=== PATIENT | female | born 1985 | race Caucasian/White ===

== ENCOUNTER 2017-07-25 17:59 | Emergency (ER) | payer OTHER, SELFPAY ==
[2017-07-25 18:01] VITALS: BP 141/77; PULSE 88; RESP 17; TEMP 37.1; O2SAT 100; BMI 44.4
--- NOTE | 2017-07-25 18:40 | ED.VISSUMM ---
- ER Visit Summary Date of Service: 07/25/17 Chief Complaint: Left thumb laceration History of Present Illness: The patient is a 31 F cutting an onion and accident and lacerated the distal end of her left thumb. Tetanus is up-to-date within the last 3 years. She denies any other injuries. She is right-hand dominant. Physical Examination: Appearing female no acute distress. Vital signs are stable afebrile. Exam is unremarkable except the distal end of her left thumb has a 2 cm laceration going horizontally involving the midportion of the nail and subcu tissue. There is minimal oozing of blood. The thumb is neurovascularly intact. It does not involve the bone, tendon or joint. There are no foreign bodies. No signs of infection. Thumb has full range of motion with normal touch sensation. Test Results: None Emergency Department Course and Treatment: Wound is not deep and can need to be repaired via suturing or Dermabond. I discussed with the patient and she chose Dermabond. Wound was cleaned and dried and Dermabond with good approximation. Patient tolerated procedure well. It was a 2 cm wound. Treatment Plan: Keep wound clean watch for any signs of infection. Disposition: Discharge Impression: Left thumb 2 cm laceration with ER repair using Dermabond This note was generated with [employer] dictation software. It may contain incorrect words, spelling, and punctuation that were not noted in review of the chart prior to signing ED Disposition - Plan for ED Patient: Chief Complaint: Laceration Referrals: Anh Tsang DO [Primary Care Provider] -
--- NOTE | 2017-07-25 18:42 | ED.DEP ---
ED Disposition - Plan for ED Patient: Disposition: Home or Assisted Living Chief Complaint: Laceration Instructions: ED Laceration Hand Referrals: Anh Tsang DO [Primary Care Provider] - Additional Instructions: Keep area dry and clean.
[2017-07-25 18:59] VITALS: BP 121/73; PULSE 81; RESP 18
== END 2017-07-25 19:00 | disposition home or self-care (01) ==
LOC: ED 18:49
PROVIDERS: Emergency Provider Emergency Medicine; Family Provider Internal Medicine; PCP Internal Medicine
DX: S61.012A Laceration without foreign body of left thumb without damage to nail, initial encounter (principal); W26.0XXA Contact with knife, initial encounter; Y93.89 Activity, other specified; Y92.9 Unspecified place or not applicable; E03.9 Hypothyroidism, unspecified; Z79.899 Other long term (current) drug therapy
CPT/HCPCS: 12001; 99282

== ENCOUNTER → 2017-09-16 11:51 | Outpatient (CLI) | payer OTHER, SELFPAY ==
[2017-09-16 14:14] LABS: Free T3 2.7 pg/mL (2.18-3.98); T4 Free Direct 1.26 ng/dL (0.76-1.46); Thyroid Stim Hormone (TSH) 2.17 uIU/mL (0.358-3.74)
== END ==
PROVIDERS: Family Provider Internal Medicine; PCP Internal Medicine; Visit Provider Internal Medicine
DX: E03.9 Hypothyroidism, unspecified (principal)
CPT/HCPCS: 36415; 84439; 84443; 84481

== ENCOUNTER → 2018-01-06 12:39 | Outpatient (CLI) | payer OTHER, SELFPAY ==
[2018-01-06 12:23] VITALS: BMI 43.6
--- NOTE | 2018-01-06 12:41 | RAD_ITS ---
STUDY: X-RAY CHEST REASON FOR EXAM: Female, 32 years old. Left lower chest pain. TECHNIQUE: PA and lateral views of the chest. COMPARISON: None. FINDINGS: The lungs are clear and expanded. Scattered calcified granulomas. There is no demonstrated pleural abnormality. Normal size heart. Normal mediastinum and jacki. Normal visualized pulmonary arteries. Normal visualized aortic arch and descending thoracic aorta. Normal visualized thoracic spine. Normal visualized ribs, clavicles, and shoulders. There is no demonstrated abnormality of the visualized soft tissue structures of the upper abdomen. RAD/Chest PA and Lateral IMPRESSION: Normal x-ray examination of the chest. Electronically Signed: Eliud Hart MD at 13:05 EST Tel [phone], Service support ,
== END ==
PROVIDERS: Family Provider Internal Medicine; PCP Internal Medicine; Referring Provider Physician Assistant; Visit Provider Physician Assistant
DX: R05 Cough (principal); R53.83 Other fatigue
CPT/HCPCS: 71046

== ENCOUNTER 2018-01-06 17:30 | Outpatient (RCR) | payer OTHER, SELFPAY ==
--- NOTE | 2017-12-24 12:24 | HP.OTEVAL ---
Patient's Visit Information CHET SAUL is a 32 year old F, referred to Occupational Therapy by Olivia Hanks MD, with a diagnosis of Pain in R thumb. 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 about 7 hours per day. pt. reports that she has pain in her thumb area that started 6 months ago. pt. also reports that she used to pop her joints and often sits/stands in positions that are not ergonomically friendly. - Pain R hand 0 Pain Intensity Range: 0, 1, 2, 3, 4, 5 - Objective Objective/Observation: pt. R MP joint and thenar eminence is noticeably larger than pt. L MP joint and thenar eminence of the thumb. - ROM MP: 0/60 in R, 0/80 in L IP: 0/35 in R, 0/51 in L ROM Comments: limited range in thenar eminence, cannot touch touch the 5th digit, (10) on thumb opposition scale for touching 5th digit - Strength Sales Account Representative: 99# in R and 95 # in L Lateral Pinch: 17# in R and 17# in L Tripod Pinch: 18# in R and 19 # in L Strength Comments: did have pain during tripod in R thumb area - DASH-Disabilities of Arm, Shoulder& Hand DASH Sum: 41 - Goals Goal:: Patient will increase ROM in MP and IP joint of R thumb by 15 degrees by completing strengthening and stretching exercises in order to complete BADL?s and IADL?s. Goal:: Patient will have decreased swelling and report overall decrease in pain of <5 when completing repetitive in order to complete BADL?s and IADL?s. Goal:: Patient will demo understanding of joint protection and ECM recommendations for increased I with BADL?s and IADL?s. Goal:: Patient will report improved ergonomic positions while at work and home for increased I with BADL's, IADL's and work tasks. Goal:: Patient will report decreased pain with writing tasks in order to have increased I with IADL's. - Rehabilitation General Assessment: Patient presents with R pain thumb d/t unknown causes. 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 pt. also reports non-ergonomically friendly positions both at work and while at home. pt. presents with decreased ROM in the MP and IP joints of the R MP joint, increased pain, and decreased ability to complete BADL's and IADL's. Pt. would benefit from OT services 2x/wk for 3 wks. Rehabilitation Potential: Good - Anticipated Interventions Anticipated Interventions: A/AAROM/PROM, Triggerpoint Release, Modalities, Joint Protection/Energy Conservation, Ergonomic Education, ADL Training, Home Program - Visit Plan Frequency: 2x /Week Duration: 3 Weeks TEXT: Thank you for the opportunity to evaluate your patient. For Medicare and Medicare HMO plans, please review the plan of care and approve it. It will need to be FAXED BACK to us at [phone] for Medicare purposes. Please let me know if there are questions or concerns regarding this plan of care. Physician Signature: Date:
--- NOTE | 2018-04-07 14:58 | HP.OT.NRP ---
HP - Discharge Summary - Patient Information CHET SAUL was seen in my office for initial evaluation on 12/23/17. The following Plan of Care was established for this patient: Initial Frequency: 2x /Week Initial Duration: 3 Weeks Plan: cont w/ prior POC - Anticipated Interventions Anticipated Interventions: A/AAROM/PROM, Triggerpoint Release, Modalities, Joint Protection/Energy Conservation, Ergonomic Education, ADL Training, Home Program This patient was last seen in our office 01/06/18. Pertinent comments regarding their Occupational therapy will appear below: pt was seen for 4 OT visits. pt was progressing well with her recovery. pt did cancel her last apt due to being ill and no further apts were rescheduled as pt felt she was doing well with her thumb. Pt is D/C at this time due to timelapse in therapy services. At this point I will be discontinuing this patient from occupational therapy. I would be happy to see this patient again in the future if found appropriate by the physician. Thank you! iLz Blanco, OTR/L, CHT
== END 2018-01-06 19:00 | disposition home or self-care (01) ==
LOC: OT 17:30
PROVIDERS: Family Provider Internal Medicine; PCP Internal Medicine; Referring Provider Orthopaedic Surgery Hand Surgery; Visit Provider Orthopaedic Surgery Hand Surgery
DX: M79.644 Pain in right finger(s) (principal)
CPT/HCPCS: 97035; 97140; 97166

== ENCOUNTER 2018-01-06 21:14 | Emergency (ER) | payer OTHER, SELFPAY ==
[2018-01-06 12:23] VITALS: BMI 43.6
[2018-01-06 21:15] VITALS: BP 150/90; PULSE 114; RESP 18; TEMP 37.1; O2SAT 99; BMI 44.0
--- NOTE | 2018-01-06 21:34 | CT_ITS ---
STUDY: CT ABDOMEN AND PELVIS WITHOUT CONTRAST REASON FOR EXAM: Female, 32 years old. Left upper quadrant pain since Saturday, elevated blood pressure, constipation. History of GERD and RADIATION DOSAGE (If Supplied By Facility): CTDIvol = ( 23.00 ) mGy, DLP = ( 1269.82 ) mGycm TECHNIQUE: Transaxial 2.5 mm images were obtained from the dome of the diaphragm to the symphysis pubis without oral contrast, and without intravenous contrast. Sagittal and coronal images were reconstructed. This examination is limited for the evaluation of gastrointestinal, solid organs and vascular structures due to the lack of intravenous and oral contrast. There is obesity, the entirety of soft tissue is not imaged. Individualized dose optimization techniques were used for this CT. COMPARISON: Chest x-ray 03/08/2017 FINDINGS: The visualized lung bases are unremarkable. The visualized portions of the heart are within normal limits. Normal liver. The gallbladder is contracted. There is mild splenomegaly. Spleen measures craniocaudally and AP 14.5 cm . Normal pancreas. Normal bilateral adrenal glands. Normal right kidney. Normal left kidney. There is no obstructive uropathy, obstructive renal or ureteral calculi. Normal visualized stomach. Normal small intestine. Normal colon. The appendix is visualized and appears normal. Normal abdominal aorta. Normal inferior vena cava. Normal retroperitoneum. Normal urinary bladder. Normal visualized uterus. There is low attenuation of the ovaries most frequently due to follicular cysts. Normal abdominal extremity wall. Degenerative changes L5-S1. CT/Abdomen/Pelvis without Cont IMPRESSION: There is no acute abdomen and pelvic pathology. Mild splenomegaly. Contracted gallbladder. Other nonacute findings as outlined above. Electronically Signed: Gali Parks MD at 23:55 EST , Service support ,
--- NOTE | 2018-01-06 21:50 | ED.VISSUMM ---
- ER Visit Summary Date of Service: 01/06/18 Chief Complaint: Abdominal pain History of Present Illness: The patient is a 32 F with fever, URI symptoms, and myalgias last week. Patient noted pain to her left lower ribs a couple days ago as her other symptoms improved. She reports increased pain with deep breath and [facility]. A chest x-ray was negative. Patient states after leaving that appointment she realized that she does not member when she last had a bowel movement and has not been able to pass gas. Pain is in the left upper quadrant of her abdomen and she became concerned. She has been urinating well. She does admit she has not been eating much over the past week. Physical Examination: Blood pressure is 150/90, temperature 98.7, heart rate 114, respiratory rate 18, pulse ox 99% on room air. Head neck examination is unremarkable. Heart is slightly tachycardic with a heart rate of 104 the time of my exam. Lung sounds are clear. Abdomen is soft with mild tenderness in the left upper quadrant. Hypoactive but present bowel sounds are noted. No guarding or rebound. Back examination reveals mild left CVA tenderness. Test Results: CBC was normal white count with hemoglobin 11.4. 63% lymphocytes are noted. Chemistry studies are significant for potassium of 2.9. LFTs showed normal bilirubins with an alk phos of 139, ALT 109, AST 86. Lipase is normal. Urinalysis normal. CT flank shows no acute abdomen or pelvis pathology. Mild splenomegaly is noted. Gallbladder is contracted. Emergency Department Course and Treatment: Patient declined anything for pain here. She was given potassium replacement orally. Test results are discussed with her. With the mild splenomegaly I question whether she may have had mono last week or a similar type of viral infection. At this point she will continue to monitor her symptoms. She will be given an additional 4 days of potassium replacement. She will follow-up with her primary care physician in 1 week. Treatment Plan: [] Disposition: Discharge Impression: 1. Viral syndrome, improving 2. Mild splenomegaly 3. Hypokalemia This note was generated with [employer] dictation software. It may contain incorrect words, spelling, and punctuation that were not noted in review of the chart prior to signing ED Disposition - Plan for ED Patient: Chief Complaint: Abd Pain Referrals: Anh Tsang DO [Primary Care Provider] -
[2018-01-06 22:06] LABS: Bacteria 0 SEEN /hpf (None Seen); Mucous, Urine 0 SEEN /hpf (<or=2+); Red Blood Cells-Urine 0 SEEN /hpf (0-5); White Blood Cells 0 SEEN /hpf (0-5)
[2018-01-06 22:25] LABS: Absolute Lymphocyte Count 3.34 X10^3/ul (0.83-4.51); Absolute Neutrophil Count 1.4 X10^3/uL (2.0-7.7); Basophil# 0.16 X10^3/uL; Color, Urine Yellow (Yellow); Eosinophil# 0.06 X10^3/uL; Eosinophils% 1.1 % (0-5); Glucose, Dipstick Normal (Normal); Hemoglobin 11.4 g/dl (12.0-15.0); Ketone-Dipstick Negative (Negative); Leukocyte Esterase-Dipstick Negative /ul (Negative); Lymphocyte # 3.34 X10^3/ul (4.0); Lymphocyte % 62.9 % (19-41); Mean Corp Hgb Conc 33.5 g/gl (32-36); Mean Corpuscular Hgb 27.4 pg (27.0-32.0); Mean Corpuscular Volume 81.7 fL (81-99); Mean Platelet Vol. 9.4 fl (6.2-12.0); Monocyte# 0.37 X10^3/uL; Neutrophil # 1.36 X10^3/uL (2.7-7.7); Neutrophil % 25.6 % (47-70); Nitrite-Dipstick Negative (Negative); Occult Blood-Urine Negative /ul (Negative); Platelet Count 173 K/mm3 (150-450); Protein-Dipstick Negative (Negative); RBC Distribution Width CV 13.3 % (11.6-14.6); RBC Distribution Width SD 40.3 fl (35.1-43.9); Red Blood Count 4.16 M/mm3 (4.2-5.4); Specific Gravity, Urine 1.005 (1.002-1.030); Urine Bilirubin Dipstick Negative (Negative); Urine Clarity Clear (Clear); Urine Urobilinogen Normal (Normal); White Blood Count 5.3 K/mm3 (4.4-11.0)
[2018-01-06 22:26] LABS: Differential Indicated SCAN CRITERIA MET; POSITIVE COUNT NO; POSITIVE DIFFERENTIAL NO; POSITIVE MORPHOLOGY YES
[2018-01-06 22:27] LABS: AST(SGOT) 86 U/L (15-37); Alanine Aminotransfer ALT/SGPT 109 U/L (13-56); Albumin, Serum 3.7 g/dL (3.2-5.0); Alkaline Phosphatase 139 U/L (45-117); Anion Gap 7 (5-15); BUN 10 mg/dL (7-18); BUN/Creat Ratio 11.3 RATIO (10-20); Bilirubin, Direct 0.19 mg/dL (0.00-0.30); Calcium,Total 8.4 mg/dL (8.5-10.1); Chloride 103 mmol/L (98-107); Creatinine, Serum 0.89 mg/dL (0.55-1.02); EST Glomerular Filtration Rate 78 mL/min (>60); Est Glom Filt Rate - Afr Amer 95 mL/min (>60); Estimated Creatinine Clearance 81.66 ml/min; Globulin 3.9 g/dL (2.2-4.2); Glucose 102 mg/dL (74-106); Lipase 81 U/L (73-393); Potassium 2.9 mmol/L (3.5-5.1); Protein, Total 7.6 g/dL (6.4-8.2); Sodium Level 137 mmol/L (136-145); Squamous Epithelial Cells - UA 0-5 SEEN /hpf (5-10)
[2018-01-06 22:45] LABS: Pregnancy, Serum, hCG Quali. NEGATIVE Negative (0-9 Nonpreg)
[2018-01-06 22:58] LABS: Differential Comment SCANNED
[2018-01-06 23:47] VITALS: BP 142/96; PULSE 109; RESP 14; O2SAT 97
--- NOTE | 2018-01-07 00:09 | ED.DEP ---
ED Disposition - Plan for ED Patient: Disposition: Home or Assisted Living Chief Complaint: Abd Pain Instructions: ED Viral Syndrome, ED Potassium Deficiency Prescriptions: Potassium Chloride [K-Dur] 20 meq PO BID #8 tablet Referrals: Anh Tsang DO [Primary Care Provider] - 1 Week
[2018-01-07 00:21] VITALS: BP 133/83; PULSE 92; RESP 16; O2SAT 96
--- OUTSIDE RECORDS SUMMARY | 2018-02-18 17:14 | XMS RPT_ITS ---
:1985 Author Organization OH[facility] Care Team Providers Name Role Phone Anh Tsang DO Attending Unavailable Trinh DO, Anh Referring Unavailable Trinh DO, Anh Consulting Unavailable Kailee Ho RECORD PRESS TENDER-C Attending Unavailable Alex Winn Attending Unavailable Trinh, Anh Primary Care Unavailable Trinh, Anh Attending Unavailable Trinh, Anh Referring Unavailable Trinh, Anh Primary Care Unavailable LatonyaOlivia antonio O Attending Unavailable [place], Olivia O Referring Unavailable Trinh, Anh Primary Care Unavailable Jassi Paniagua Attending Unavailable Trinh, Anh Referring Unavailable Wyles, Jassi Attending Unavailable Wyles, Jassi Referring Unavailable Trinh, Anh Primary Care Unavailable Trinh, Anh Primary Care Unavailable Maryse Vazquez Attending Unavailable Trinh, Anh Primary Care Unavailable Ariel Mayberry Attending Unavailable Purpose Purpose PROBLEMS PROBLEMS DATE TYPE CONDITION / CODE ATTENDING STATUS SOURCE 01/06/2018 Unknown M79.644 - Pain in Olivia Hanks Active [facility] right finger(s) / [facility] M79.644(ICD-10) Hospital Repository 01/06/2018 Unknown R05 - Cough / Jassi Paniagua Active [facility] R05(ICD-10) [facility] Repository 01/06/2018 Unknown R53.83 - Other Jassi Paniagua Active [facility] fatigue / Community R53.83(ICD-10) Hospital Repository 01/06/2018 Unknown R50.9 - Fever, Jassi Paniagua Active [place] unspecified / Community R50.9(ICD-10) Hospital Repository PROCEDURES PROCEDURES No Procedure Records FoundVITAL SIGNS VITAL SIGNS No Vital Signs Records FoundRESULTS RESULTS EMERGENCY DEPARTMENT Observed: 01/08/2018 Status: F Source: [place] SUMMARY 2:09 AM [facility] Medical Records Department [address] [place] [address] Emergency Department Summary 01/08/18 0142 MR#: [id number] Acct: [id number] Name: KGCHET N Rep #: [id number] : 1985 32 From: Ariel Mayberry MD PCP: Anh Tsang DO Status: REG ER - ER Visit Summary Date of Service: 01/08/18 Chief Complaint: Fever History of Present Illness: The patient is a 32 F who presents with a fever of 99.7. She was seen in the emergency department yesterday for left upper abdominal pain. She had a CT which showed mild splenomegaly. She was advised of these findings. She states that she feels like it is gotten bigger today and she had an elevated temperature at home so was concerned and presented here. She also complains of fatigue. She was ill last week with a fever of 102 and headache which have since resolved. She complains of mild sore throat. No chest pain shortness of breath nausea vomiting diarrhea or rashes Physical Examination: Afebrile heart rate 104 vitals otherwise normal here. Moist mucous membranes Heart regular rate and rhythm Lungs are clear Abdomen soft nondistended she has some left upper quadrant abdominal tenderness I am unable to palpate spleen due to body habitus Alert Test Results: [place] screen is positive. Emergency Department Course and Treatment: [place] screen was positive. Jsjie-wq-umzi bedside ultrasound showed no free fluid to suggest splenic rupture. She was advised on supportive care. She will follow-up with her primary care physician. She understands return for new or worsening symptoms and was discharged. Treatment Plan: [] Disposition: Discharge Impression: Mononucleosis This note was generated with [employer] dictation software. It may contain incorrect words, spelling, and punctuation that were not noted in review of the chart prior to signing ED Disposition - Plan for ED Patient: Chief Complaint: Fever Referrals: Anh Tsang DO [Primary Care Provider] - What to do if you have Problems For any increased pain, shortness of breath, bleeding, nausea or vomiting, chest pain, or any unexpected problems, contact your Primary Care Provider. Call [facility] ([phone]) or report to the closest Emergency Room. Call 911 if necessary. 01/08/18 0209 <Electronically signed by Ariel Mayberry MD> Date Ariel Mayberry MD Cosigner Signature (If Indicated): Date CC: Anh Tsang DO DISCHARGE INSTRUCTION Observed: 01/08/2018 Status: F Source: [place] 2:09 AM [facility] REPOSITORY [facility] Medical Records Department [address] [place] [address] Discharge Instruction 01/08/18208 MR#: [id number] Acct: [id number] Name: CHET SAUL Usman Rep #: [id number] : 1985 32 From: Ariel Mayberry MD PCP: Anh Tsang DO Status: REG ER ED Disposition - Plan for ED Patient: Chief Complaint: Fever Instructions: ED Mononucleosis Referrals: Anh Tsang DO [Primary Care Provider] - What to do if you have Problems For any increased pain, shortness of breath, bleeding, nausea or vomiting, chest pain, or any unexpected problems, contact your Primary Care Provider. Call [facility] ([phone]) or report to the closest Emergency Room. Call 911 if necessary. 01/08/18208 <Electronically signed by Ariel Mayberry MD> Date Ariel Mayberry MD Cosigner Signature (If Indicated): Date CC: Anh Tsang DO MONOTEST Collected: 01/08/2018 Status: F Source: [place] 12:58 AM [facility] [place] TYPE CODE TESTS RESULT OUT OF REFERENCE UNITS RANGE LAB L700.5700 Negative High MONO POSITIVE Performed By: #### L700.5500 #### [facility] [address] [place], [address] EMERGENCY DEPARTMENT Observed: 01/07/2018 Status: F Source: [place] SUMMARY 12:27 AM [facility] Medical Records Department [address] [place] [address] Emergency Department Summary 01/06/18 2150 MR#: [id number] Acct: [id number] Name: CHET SAUL Rep #: [id number] : 1985 32 From: Maryse Vazquez MD PCP: Anh Tsang DO Status: DEP ER - ER Visit Summary Date of Service: 01/06/18 Chief Complaint: Abdominal pain History of Present Illness: The patient is a 32 F with fever, URI symptoms, and myalgias last week. Patient noted pain to her left lower ribs a couple days ago as her other symptoms improved. She reports increased pain with deep breath and was seen at [facility] earlier today. A chest x-ray was negative. Patient states after leaving that appointment she realized that she does not member when she last had a bowel movement and has not been able to pass gas. Pain is in the left upper quadrant of her abdomen and she became concerned. She has been urinating well. She does admit she has not been eating much over the past week. Physical Examination: Blood pressure is 150/90, temperature 98.7, heart rate 114, respiratory rate 18, pulse ox 99% on room air. Head neck examination is unremarkable. Heart is slightly tachycardic with a heart rate of 104 the time of my exam. Lung sounds are clear. Abdomen is soft with mild tenderness in the left upper quadrant. Hypoactive but present bowel sounds are noted. No guarding or rebound. Back examination reveals mild left CVA tenderness. Test Results: CBC was normal white count with hemoglobin 11.4. 63% lymphocytes are noted. Chemistry studies are significant for potassium of 2.9. LFTs showed normal bilirubins with an alk phos of 139, ALT 109, AST 86. Lipase is normal. Urinalysis normal. CT flank shows no acute abdomen or pelvis pathology. Mild splenomegaly is noted. Gallbladder is contracted. Emergency Department Course and Treatment: Patient declined anything for pain here. She was given potassium replacement orally. Test results are discussed with her. With the mild splenomegaly I question whether she may have had mono last week or a similar type of viral infection. At this point she will continue to monitor her symptoms. She will be given an additional 4 days of potassium replacement. She will follow- up with her primary care physician in 1 week. Treatment Plan: [] Disposition: Discharge Impression: 1. Viral syndrome, improving 2. Mild splenomegaly 3. Hypokalemia This note was generated with [employer] software. It may contain incorrect words, spelling, and punctuation that were not noted in review of the chart prior to signing ED Disposition - Plan for ED Patient: Chief Complaint: Abd Pain Referrals: Anh Tsang DO [Primary Care Provider] - What to do if you have Problems For any increased pain, shortness of breath, bleeding, nausea or vomiting, chest pain, or any unexpected problems, contact your Primary Care Provider. Call [facility] ([phone]) or report to the closest Emergency Room. Call 911 if necessary. 01/07/18 0027 <Electronically signed by Maryse Vazquez MD> Date Maryse Vazquez MD Cosigner Signature (If Indicated): Date CC: Anh Tsang DO DISCHARGE INSTRUCTION Observed: 01/07/2018 Status: F Source: [place] 12:10 AM [facility] Medical Records Department [address] [place] [address] Discharge Instruction 01/07/18 0009 MR#: [id number] Acct: [id number] Name: CHET SAUL Rep #: [id number] : 1985 32 From: Maryse Vazquez MD PCP: Anh Tsang DO Status: REG ER ED Disposition - Plan for ED Patient: Disposition: Home or Assisted Living Chief Complaint: Abd Pain Instructions: ED Viral Syndrome, ED Potassium Deficiency Prescriptions: Potassium Chloride [K-Dur] 20 meq PO BID #8 tablet Referrals: Anh Tsang DO [Primary Care Provider] - 1 Week What to do if you have Problems For any increased pain, shortness of breath, bleeding, nausea or vomiting, chest pain, or any unexpected problems, contact your Primary Care Provider. Call [facility] ([phone]) or report to the closest Emergency Room. Call 911 if necessary. 01/07/18 0010 <Electronically signed by Maryse Vazquez MD> Date Maryse Vazquez MD Cosigner Signature (If Indicated): Date CC: Anh Tsang DO CBC W/DIFF, AUTOMATED Collected: 01/06/2018 Status: F Source: [place] 9:50 PM [facility] TYPE CODE TESTS RESULT OUT OF RANGE REFERENCE UNITS LAB L100.1000 4.4-11.0 K/mm3 Normal WBC 5.3 LAB L100.1200 4.2-5.4 M/mm3 Low RBC 4.16 LAB L100.1300 12.0-15.0 g/dl Low HGB 11.4 LAB L100.1400 37-47 % Low HCT 34.0 LAB L100.1500 81-99 fL Normal MCV 81.7 LAB L100.1600 27.0-32.0 pg Normal MCH 27.4 LAB L100.1700 32-36 g/gl Normal MCHC 33.5 LAB L100.1810 11.6-14.6 % Normal RDW CV 13.3 LAB L100.1820 35.1-43.9 fl Normal RDW SD 40.3 LAB L100.1900 150-450 K/mm3 Normal PLT 173 LAB L100.2000 6.2-12.0 fl Normal MPV 9.4 LAB L100.2100 47-70 % Low NEUT% 25.6 LAB L100.2200 19-41 % High LY% 62.9 LAB L100.2300 0-10 % Normal MONO% 7.0 LAB L100.2400 0-5 % Normal EO% 1.1 LAB L100.2500 0-1 % High BASO% 3.0 LAB L100.2550 0.0-0.9 % Normal IM GRAN % 0.400 Result Comment: IG% - Immature Granulocytes (promyelocytes, myelocytes and metamyelocytes) > 1% indicates that a LEFT SHIFT is Present. LAB L100.2620 2.0-7.7 X10 3/uL Low Absolute Neut 1.4 LAB L100.2720 0.83-4.51 X10 3/ul Normal Absolute Lymph 3.34 LAB L100.4500 Normal SMEAR COMMENT SCANNED Performed By: #### L100.0100 #### [facility] [address] [place], [place], [id number] URINALYSIS, COMPLETE Collected: 01/06/2018 Status: F Source: [place] 9:50 PM [facility] Order Comment: Order Date: 01/06/18 How was Urine Obtained? CLEAN CATCH TYPE CODE TESTS RESULT OUT OF RANGE REFERENCE UNITS LAB L400.3000 Yellow COLOR Normal Yellow LAB L400.3050 Clear Normal CLARITY Clear LAB L400.3200 Normal mg/dl Normal GLUCOSE, UR Normal LAB L400.3300 Negative mg/dL Normal BILIRUBIN URINE Negative LAB L400.3400 Negative mg/dl Normal KETONE UR Negative LAB L400.3465 1.002-1.030 Normal SP.GR. DIPSTX 1.005 LAB L400.3550 5.0 - 8.0 pH UR Normal 7.0 LAB L400.3600 Negative mg/dl PROT Normal DIPSTX Negative LAB L400.3700 Normal mg/dl Normal UROBILI Normal LAB L400.3750 Negative Normal NITRITE UR Negative LAB L400.3780 Negative /ul Normal OCCULT BLOOD-UR Negative LAB L400.3800 Negative /ul LEUK Normal ESTERASE Negative LAB L400.4050 0-5 /hpf WBC 0 Normal SEEN LAB L400.4100 0-5 /hpf 0 Normal RBC-UA SEEN LAB L400.4150 5-10 /hpf SQUAM Normal EPI 0-5 SEEN LAB L400.4300 None Seen /hpf 0 Normal BACTERIA SEEN LAB L400.4350 <or=2+ /hpf 0 Normal MUCUS, URINE SEEN Performed By: #### L400.0001 #### [facility] [address] [place], [place], [address] BASIC METABOLIC Collected: 01/06/2018 Status: F Source: [place] PROFILE (BMP) 9:50 PM [facility] TYPE CODE TESTS RESULT OUT OF RANGE REFERENCE UNITS LAB L501.0100 74-106 mg/dL Normal GLU 102 Result Comment: Fasting Glucose result from 100 to 125 mg/dL suggests IMPAIRED HOMEOSTASIS per A.D.A. criteria. Please note revised GLUCOSE reference range effective 2017. LAB L501.1000 7-18 mg/dL Normal BUN 10 LAB L501.1100 0.55-1.02 mg/dL Normal CREAT,SERUM 0.89 Result Comment: The validity of the calculated GFR AND GFRAA in patients over 70 years has not been determined. Clinical correlation is essential. LAB L501.1110 >60 mL/min Normal EST GFR 78 Result Comment: Non- GFR Calc LAB L501.1115 >60 mL/min Normal EST GFR - AA 95 Result Comment: GFR Calc LAB L501.1255 ml/min Normal Estimated CRCL 81.66 LAB L501.1300 10-20 RATIO Normal BUN/CRE 11.3 LAB L501.2200 8.5-10 mg/dL Low .1 CA 8.4 LAB L501.5300 136-14 mmol/L Normal 5 NA 137 LAB L501.5600 3.5-5. mmol/L Low 1 K 2.9 LAB L501.5900 98-107 mmol/L Normal CL 103 LAB L501.6100 21.0-3 mmol/L Normal 2.0 CO2 27.0 LAB L501.6200 5-15 Normal GAP 7 Performed By: #### L500.2500, L500.3400, L501.2450 #### [facility] [address] [place], [place], [address] LIVER PROFILE Collected: 01/06/2018 Status: F Source: [place] 9:50 PM [facility] TYPE CODE TESTS RESULT OUT OF RANGE REFERENCE UNITS LAB L501.1500 6.4-8.2 g/dL Normal T PROT 7.6 LAB L501.1800 3.2-5.0 g/dL Normal ALB 3.7 LAB L501.1950 2.2-4.2 g/dL Normal GLOB 3.9 LAB L501.4100 15-37 U/L High AST 86 LAB L501.4305 45-117 U/L High ALK P 139 LAB L501.4405 13-56 U/L High ALT 109 LAB L501.4600 0.20-1.00 mg/dL Normal T BILI 0.60 LAB L501.4700 0.00-0.30 mg/dL Normal D BILI 0.19 Performed By: #### L500.2500, L500.3400, L501.2450 #### [facility] [address] [place], [address] LIPASE Collected: 01/06/2018 Status: F Source: [place] 9:50 PM [facility] TYPE CODE TESTS RESULT OUT OF RANGE REFERENCE UNITS LAB L501.2450 73-393 U/L Normal LIPASE 81 Performed By: #### L500.2500, L500.3400, L501.2450 #### [facility] [address] [place], [address] ,SERUM,HCG QUALI. Collected: Status: F Source: [place] 01/06/2018 9:50 PM [facility] TYPE CODE TESTS RESULT OUT OF REFERENCE UNITS RANGE LAB L700.7000 0-9 Nonpreg Negative Normal HCGSQUAL NEGATIVE LAB L700.6700 =>Qualitative mIU/mL Normal HCG Qual < 1 triggr Performed By: #### L700.6800 #### [facility] [address] [facility] [place], [address] ABDOMEN/PELVIS WITHOUT Observed: 01/06/2018 Status: F Source: [place] CONT 9:35 PM [facility] Imaging Services [address] [place] [address] Abdomen/Pelvis without Cont MR#: [id number] Acct: [id number] Name: CHET SAUL Rep #: [id number] : 1985 F 32 From: Gali Parks MD PCP: Anh Tsang DO Status: REG ER Study: Abdomen/Pelvis without Cont Date of Exam: 01/06/18 Exam# [id number] Ordering Dr: Maryse Vazquez MD STUDY: CT ABDOMEN AND PELVIS WITHOUT CONTRAST REASON FOR EXAM: Female, 32 years old. Left upper quadrant pain since Saturday, elevated blood pressure, constipation. History of GERD and RADIATION DOSAGE (If Supplied By Facility): CTDIvol = ( 23.00 ) mGy, DLP = ( 1269.82 ) mGycm TECHNIQUE: Transaxial 2.5 mm images were obtained from the dome of the diaphragm to the symphysis pubis without oral contrast, and without intravenous contrast. Sagittal and coronal images were reconstructed. This examination is limited for the evaluation of gastrointestinal, solid organs and vascular structures due to the lack of intravenous and oral contrast. There is obesity, the entirety of soft tissue is not imaged. Individualized dose optimization techniques were used for this CT. COMPARISON: Chest x-ray 03/08/2017 FINDINGS: The visualized lung bases are unremarkable. The visualized portions of the heart are within normal limits. Normal liver. The gallbladder is contracted. There is mild splenomegaly. Spleen measures craniocaudally and AP 14.5 cm . Normal pancreas. Normal bilateral adrenal glands. Normal right kidney. Normal left kidney. There is no obstructive uropathy, obstructive renal or ureteral calculi. Normal visualized stomach. Normal small intestine. Normal colon. The appendix is visualized and appears normal. Normal abdominal aorta. Normal inferior vena cava. Normal retroperitoneum. Normal urinary bladder. Normal visualized uterus. There is low attenuation of the ovaries most frequently due to follicular cysts. Normal abdominal extremity wall. Degenerative changes L5-S1. CT/Abdomen/Pelvis without Cont IMPRESSION: There is no acute abdomen and pelvic pathology. Mild splenomegaly. Contracted gallbladder. Other nonacute findings as outlined above. Electronically Signed: Gali Parks MD at 23:55 EST , Service support , CC: Maryse Vazquez MD; Anh Tsang DO Top Installer: Signed URGENT CARE VISIT Observed: 01/06/2018 Status: F Source: [place] REPORT 1:[address] [place] [address] OFFICE VISIT Date of Service: 01/06/18 MR#: [id number] Acct: [id number] Name: CHET SAUL Rep #: [id number] : 1985 Provider: Jassi REYNA Age/Sex: 32/F Location[facility] Status: Signed Intake Vital Signs01/06/18 Height 5 ft 5 in Intake Visit Reasons: PAIN IN LEFT SIDE Chief Complaint: Pain in left side Media Services Director Required: No Accompanied by: self Is patient in pain?: Yes Allergies No Known Allergies Allergy (Verified 01/06/18 12:25) Medications Esomeprazole Magnesium [Nexium 24Hr] 40 mg PO DAILY 06/04/15 [History Confirmed 01/06/18] Levothyroxine [Synthroid] 125 mcg PO DAILY 06/04/15 [History Confirmed 01/06/18] PFSH Surgical History History of (Acute) Social History Smoking Status: Never smoker alcohol intake: never HPI HPI Chief Complaint: Pain in left side Details: CHET SAUL, is a 32 F who presents to the office today for initial evaluation approximately 5-day history of fever, chills, myalgias, fatigue, left lateral rib cage pain. Patient notes her has been diagnosed with influenza approximately week ago, and is concerned she may have the same. She is unsure what her T- max has been over the last several days, noting chills as well, though no complaints of sweats, rash, cough, chest pain/shortness of breath. She notes no other associated symptoms no other alleviating or aggravating factors. ROS Const Constitutional: No other (ROS negative x10 other than as noted above) Exam Const General: cooperative, healthy appearing, no acute distress, comfortable Nutritional Appearance: obese Orientation: alert, awake, oriented x3 HENMT Head: normal to inspection Ears: hearing grossly normal bilaterally, external ears normal, TM's normal bilaterally, EAC's normal Nose: external nose normal, nares normal, septum normal, no nasal discharge Face and sinus: normal facial exam, sinuses nontender, face symmetric Mouth: tongue normal, lip normal, oral mucosae normal Teeth and gingiva: dentition normal, gingiva normal Throat: uvula midline, tonsils normal, posterior oropharynx normal, no postnasal drainage Eyes General: appearance normal, both eyes and all related structures Neck Neck: normal visual inspection, full ROM, no lymphadenopathy, no meningeal signs, supple Neck mass: No Thyroid: thyroid normal Lymphatic: no lymphadenopathy noted Chest Chest palpation AND inspection: normal inspection of the chest Resp Effort AND Inspection: normal respiratory effort, able to speak in complete sentences, symmetric chest movement Auscultation: Bilateral: Clear to Auscultation (The left lateral rib cage tenderness to palpation appreciated) Cardio Palpation: normal PMI Rate: regular rate Rhythm: regular rhythm Heart Sounds: S1 normal, S2 normal, no gallops, no murmurs, no rubs Pulses: radial pulses present GI Inspection: normal to inspection Palpation: soft, no hepatosplenomegaly Skin General: no rashes or lesions noted Neuro General: alert, awake, oriented x3, gait normal Cognition: normal cognition Speech: speech normal Gait: normal gait Motor: muscle tone normal throughout Sensory Exam: no sensory deficits noted Psych Appearance: grossly normal Mental Status: mental status grossly normal Mood: congruent mood Affect: normal affect Speech and Movement: speech and movement normal Attitude: cooperative Thought Process: normal Thought Content: normal Judgment: judgment good Results BMSFLUAB Office Flu A AND B Negative FLU A AND B Last Edit by Kami Christian on 01/06/18 12:40 Assessment AND Plan Problems 1. Costochondritis M94.0 Plan Today's chest radiographs revealed no acute pathology per my review, pending radiologist interpretation at the time of this dictation. Rapid flu test today negative. Clear fluids, rest, Advil/Tylenol as needed for symptomatic relief. Follow-up with PCP in 3-5 days should symptoms not improve, sooner should symptoms worsen or any other concerns develop. Patient states acknowledging understanding all the above. This note was generated with [employer] dictation software. It may contain incorrect words, spelling, and punctuation that were not noted in checking the note before signing. Orders Orders: Coding Level of Care Code Off vis,new,level 4 Diagnoses Costochondritis M94.0 01/06/18 1344 <Electronically signed by Jassi REYNA> Date Jassi REYNA Cosigner Signature: Date (if applicable) CC: CHEST PA AND LATERAL Observed: 01/06/2018 Status: F Source: [facility] 12:41 PM [facility] REPOSITORY [facility] Imaging Services [address] [place] [address] Chest PA and Lateral MR#: [id number] Acct: [id number] Name: CHET SAUL Rep #: [id number] : 1985 F 32 From: Eliud Hart MD PCP: Anh Tsang DO Status: REG CLI Study: Chest PA and Lateral Date of Exam: 01/06/18 Exam# [id number] Ordering Dr: Jassi Paniagua STUDY: X-RAY CHEST REASON FOR EXAM: Female, 32 years old. Left lower chest pain. TECHNIQUE: PA and lateral views of the chest. COMPARISON: None. FINDINGS: The lungs are clear and expanded. Scattered calcified granulomas. There is no demonstrated pleural abnormality. Normal size heart. Normal mediastinum and jacki. Normal visualized pulmonary arteries. Normal visualized aortic arch and descending thoracic aorta. Normal visualized thoracic spine. Normal visualized ribs, clavicles, and shoulders. There is no demonstrated abnormality of the visualized soft tissue structures of the upper abdomen. RAD/Chest PA and Lateral IMPRESSION: Normal x-ray examination of the chest. Electronically Signed: Eliud Hart MD at 13:05 EST Tel [phone], Service support , CC: Anh Tsang DO; Jassi REYNA Top Installer: Signed OT GENERAL EVALUATION Observed: 12/24/2017 Status: F Source: [place] 12:37 PM [facility] [address] [place] [address]. [address] [place] [address] Fax REHABILITATION SERVICES INITIAL EVALUATION MR#: [id number] Acct: [id number] Name: CHET SAUL Rep #: [id number] : 1985 32 From: Liz GRANDA/Claudine, MELVI Referring Dr.: Olivia Hanks MD Status: REG R Insurance: [facility] Date: SELF PAY INSURANCE Patient's Visit Information CHET SAUL is a 32 year old F, referred to Occupational Therapy by Olivia Hanks MD, with a diagnosis of Pain in R thumb. 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 about 7 hours per day. pt. reports that she has pain in her thumb area that started 6 months ago. pt. also reports that she used to pop her joints and often sits/stands in positions that are not ergonomically friendly. - Pain R hand 0 Pain Intensity Range: 0, 1, 2, 3, 4, 5 - Objective Objective/Observation: pt. R MP joint and thenar eminence is noticeably larger than pt. L MP joint and thenar eminence of the thumb. - ROM MP: 0/60 in R, 0/80 in L IP: 0/35 in R, 0/51 in L ROM Comments: limited range in thenar eminence, cannot touch touch the 5th digit, (10) on thumb opposition scale for touching 5th digit - Strength Supervisor Electrolytic Tinning: 99# in R and 95 # in L Lateral Pinch: 17# in R and 17# in L Tripod Pinch: 18# in R and 19 # in L Strength Comments: did have pain during tripod in R thumb area - DASH-Disabilities of Arm, Shoulder AND Hand DASH Sum: 41 - Goals Goal:: Patient will increase ROM in MP and IP joint of R thumb by 15 degrees by completing strengthening and stretching exercises in order to complete BADL s and IADL s. Goal:: Patient will have decreased swelling and report overall decrease in pain of <5 when completing repetitive in order to complete BADL s and IADL s. Goal:: Patient will demo understanding of joint protection and ECM recommendations for increased I with BADL s and IADL s. Goal:: Patient will report improved ergonomic positions while at work and home for increased I with BADL's, IADL's and work tasks. Goal:: Patient will report decreased pain with writing tasks in order to have increased I with IADL's. - Rehabilitation General Assessment: Patient presents with R pain thumb d/t unknown causes. 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 pt. also reports non-ergonomically friendly positions both at work and while at home. pt. presents with decreased ROM in the MP and IP joints of the R MP joint, increased pain, and decreased ability to complete BADL's and IADL's. Pt. would benefit from OT services 2x/wk for 3 wks. Rehabilitation Potential: Good - Anticipated Interventions Anticipated Interventions: A/AAROM/PROM, Triggerpoint Release, Modalities, Joint Protection/Energy Conservation, Ergonomic Education, ADL Training, Home Program - Visit Plan Frequency: 2x /Week Duration: 3 Weeks TEXT: Thank you for the opportunity to evaluate your patient. For Medicare and Medicare HMO plans, please review the plan of care and approve it. It will need to be FAXED BACK to us at [phone] for Medicare purposes. Please let me know if there are questions or concerns regarding this plan of care. Physician Signature: Date: <Electronically signed by Liz GRANDA/Claudine, ZULEYMAT> 12/24/17 1237 CC: Olivia Hanks MD; Anh Tsang DO ASHLI Signed For Medicare only, by signing this I certify the plan of care. Physicians Signature Date FREE T3 Collected: 09/16/2017 Status: F Source: [place] 12:00 PM [facility] [place] CODE TESTS RESULT OUT OF RANGE REFERENCE UNITS LAB L501.71677 2.18-3.98 pg/mL Normal FREE T3 2.7 Performed By: #### L501.29374, L501.9520, L506.0400 #### [facility] [address] [place], [address] THYROID STIM HORMONE Collected: 09/16/2017 Status: F Source: [place] (TSH) 12:00 PM [facility] [place] CODE TESTS RESULT OUT OF RANGE REFERENCE UNITS LAB L501.9520 0.358-3.74 uIU/mL Normal TSH 2.17 Performed By: #### L501.16696, L501.9520, L506.0400 #### [facility] [place], [address] T4 FREE DIRECT Collected: 09/16/2017 Status: F Source: [place] 12:00 PM [facility] [place] TYPE CODE TESTS RESULT OUT OF RANGE REFERENCE UNITS LAB L506.0400 0.76-1.46 ng/dL Normal T4 FREE 1.26 DIRECT Performed By: #### L501.57103, L501.9520, L506.0400 #### [facility] [place], [address] EMERGENCY DEPARTMENT Observed: 07/26/2017 Status: F Source: NARGIS SUMMARY 12:44 AM [facility] [place] [facility] Medical Records Department [address] [place] [address] Emergency Department Summary 07/25/17 1840 MR#: [id number] Acct: [id number] Name: CHET SAUL Usman Rep #: [id number] : 1985 31 From: Alex Winn MD PCP: Anh Tsang DO Status: DEP ER - ER Visit Summary Date of Service: 07/25/17 Chief Complaint: Left thumb laceration History of Present Illness: The patient is a 31 F cutting an onion and accident and lacerated the distal end of her left thumb. Tetanus is up-to-date within the last 3 years. She denies any other injuries. She is right-hand dominant. Physical Examination: Appearing female no acute distress. Vital signs are stable afebrile. Exam is unremarkable except the distal end of her left thumb has a 2 cm laceration going horizontally involving the midportion of the nail and subcu tissue. There is minimal oozing of blood. The thumb is neurovascularly intact. It does not involve the bone, tendon or joint. There are no foreign bodies. No signs of infection. Thumb has full range of motion with normal touch sensation. Test Results: None Emergency Department Course and Treatment: Wound is not deep and can need to be repaired via suturing or Dermabond. I discussed with the patient and she chose Dermabond. Wound was cleaned and dried and Dermabond with good approximation. Patient tolerated procedure well. It was a 2 cm wound. Treatment Plan: Keep wound clean watch for any signs of infection. Disposition: Discharge Impression: Left thumb 2 cm laceration with ER repair using Dermabond This note was generated with [employer] dictation software. It may contain incorrect words, spelling, and punctuation that were not noted in review of the chart prior to signing ED Disposition - Plan for ED Patient: Chief Complaint: Laceration Referrals: Anh Tsang, DO [Primary Care Provider] - What to do if you have Problems For any increased pain, shortness of breath, bleeding, nausea or vomiting, chest pain, or any unexpected problems, contact your Primary Care Provider. Call [facility] ([phone]) or report to the closest Emergency Room. Call 911 if necessary. 07/26/17 0044 <Electronically signed by Alex Winn MD> Date Alex Winn MD Cosigner Signature (If Indicated): Date CC: Anh Tsang DO DISCHARGE INSTRUCTION Observed: 07/26/2017 Status: F Source: NARGIS 12:44 AM [facility] [place] [facility] Medical Records Department [address] [place] [address] Discharge Instruction 07/25/17 1842 MR#: [id number] Acct: [id number] Name: CHET SAUL Rep #: [id number] : 1985 31 From: Alex Winn MD PCP: Anh Tsang DO Status: DEP ER ED Disposition - Plan for ED Patient: Disposition: Home or Assisted Living Chief Complaint: Laceration Instructions: ED Laceration Hand Referrals: Anh Tsang DO [Primary Care Provider] - Additional Instructions: Keep area dry and clean. What to do if you have Problems For any increased pain, shortness of breath, bleeding, nausea or vomiting, chest pain, or any unexpected problems, contact your Primary Care Provider. Call [facility] ([phone]) or report to the closest Emergency Room. Call 911 if necessary. 07/26/17 0044 <Electronically signed by Alex Winn MD> Date Alex Winn MD Cosigner Signature (If Indicated): Date CC: Anh Tsang DO OFFICE VISIT REPORT Observed: 02/24/2017 Status: F Source: NARGIS 5:04 PM [facility] [address] [place] [address] OFFICE VISIT Date of Service: 02/24/17 MR#: [id number] Acct: [id number] Patient: CHET SAUL Rep #: [id number] : 1985 Provider: Kailee Ho NP Age/Sex: 31/F [facility] Status: Signed Intake Vital Signs02/24/17 Height 5 ft 7 in 02/24/17 Weight: 260 lb 02/24/17 Body Mass Index (BMI) 40.7 Intake Visit Reasons: COUGH AND SINUS Media Services Director Required: No Is patient in pain?: No Allergies No Known Allergies Allergy (Verified 02/24/17 08:16) Medications Esomeprazole Magnesium [Nexium 24Hr] 20 mg PO DAILY 06/04/15 [History Confirmed 02/24/17] Levothyroxine [Synthroid] 125 mcg PO DAILY 06/04/15 [History Confirmed 02/24/17] Vits [Prenatabs FA] 1 tab PO DAILY 06/04/15 [History Confirmed 02/24/17] Naproxen Sodium [Aleve] 220 mg PO Q8H PRN PRN #30 tab 07/05/15 [Rx Confirmed 02/24/17] Oxycodone [Oxyir] 5 - 10 mg PO Q4H PRN PRN #30 tab 07/05/15 [Rx Confirmed 02/24/17] Senna/Docusate Sodium [Senokot-S] 1 tab PO DAILY PRN #30 tab 07/05/15 [Rx Confirmed 02/24/17] albuterol sulfate HFA 90 mcg/actuation aerosol inhaler 2 puff INHALATION Q6H #8 g 02/24/17 [Rx Confirmed 02/24/17] amoxicillin 875 mg-potassium clavulanate 125 mg tablet 1 tab PO BID #14 tab 02/24/17 [Rx Confirmed 02/24/17] benzonatate 100 mg capsule 100 mg PO Q4H PRN #30 cap 02/24/17 [Rx Confirmed 02/24/17] prednisone 10 mg tablets in a dose pack See Dose Instructions PO PER PKG DIR #21 tab 02/24/17 [Rx Confirmed 02/24/17] PFSH Social History Smoking Status: Never smoker alcohol intake: never HPI COUGH AND SINUS: Chief Complaint: sinus congestion, pain, cough Details: CHET SAUL, is a 31 F who presents to the office today for complaints of sinus congestion and cough for 10 days. Now stuffy nose, coughing, facial tenderness. Not sleeping. Once in awhile sputum- clear. Having wheezing at times. Nonsmoker, no h/o asthma. No fevers or chills. No nasal drainage. and child have been sick. 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 ROS Const Constitutional: Positive for fatigue, headache(s) and abnormal sleep pattern (coughs too much to sleep); no anorexia, body ache, chills or fever(s) Eyes Eyes: No change in vision ENT ENT: Positive for headache(s), sinus pressure and sinus pain; no ear pain, ear discharge, dizziness/vertigo or nasal discharge Resp Respiratory: Positive for cough Cough: Yes non-productive, chest congestion and wheezing; no excessive phlegm production, hemoptysis or shortness of breath Cardio Cardiology: No chest pain at rest, shortness of breath, orthopnea or palpitations Gastro GI: No abdominal pain, diarrhea, vomiting or nausea/dyspepsia Musc Musculoskeletal: No muscle weakness or back pain Skin Skin: No rash or itching Neuro Neurology: Positive for headache(s) Psych Psychiatric: Positive for abnormal sleep pattern (coughs too much to sleep) Endo Endocrine: Positive for fatigue Aller/Imm Allergy/Immunologic: Positive for wheezing; no itchy eyes or seasonal allergy symptoms Exam Const General: cooperative, no acute distress Nutritional Appearance: overweight Orientation: alert, oriented x3 HENMT Head: normal to inspection Ears: hearing grossly normal bilaterally, TM's normal bilaterally Nose: nasal mucous membranes and turbinates normal Face and sinus: sinus tenderness frontal and maxillary Mouth: moist mucous membranes Teeth and gingiva: dentition normal Throat: posterior oropharynx abnormal erythema and edema, postnasal drainage Eyes General: appearance normal, both eyes and all related structures Neck Neck: normal visual inspection, full ROM, no lymphadenopathy Chest Chest palpation AND inspection: normal inspection of the chest Resp Effort AND Inspection: normal respiratory effort, able to speak in complete sentences, symmetric chest movement, no respiratory distress, cough Quality of cough: actively coughing Auscultation: Bilateral: Diminished Lung Sounds, Expiratory Wheezes (no rhonchi or rales) Cardio Palpation: normal PMI Rate: regular rate Rhythm: regular rhythm Heart Sounds: S1 normal, S2 normal, no murmurs GI Auscultation: normal bowel sounds Palpation: soft, nontender Musc Musculoskeletal: No muscle weakness Extrem General: no clubbing, cyanosis or edema Assessment AND Plan Problems 1. Acute sinusitis, unspecified J01.90 Plan Patient with ongoing URI symptoms and now chest congestion and wheezing. RX, encouraged rest, plenty clear liquids, Tylenol for pain. Take atb with food. Use albuterol PRN wheezing and SOB. Prednisone helped in the past. Call if no improvement in 48 hours or if symptoms worsen. Medications New: Coding Level of Care Code Off vis,est,level 3 Diagnoses Acute sinusitis, unspecified J01.90 02/24/17 1704 <Electronically signed by Kailee JONESC> Date Kailee Ho NP-C Cosigner Signature: Date (if applicable) CC: ALLERGIES ALLERGIES DATE TYPE / CODE NAME / CODE REACTION SEVERITY SOURCE 01/08/2018 Drug No Known Unknown [facility] Allergy/4160 Allergies/F00 Hospital 69488(SNOMED 1848323(RXNOR Repository CT) M) ENCOUNTERS ENCOUNTERS ADMIT/DISCHARGE ACCOUNT ADMITTING ENCOUNTER LOCATION SOURCE NUMBER CLASS 01/09/2018 [id number] Ambulatory Building:[facility] OHIP Practices Repository 01/08/2018/ [id number] Emergency [place] 8 6 [facility] ing:ED Repository 01/06/2018/ [id number] Emergency [place] [place] 8 0 [facility] ing:ED Repository 01/06/2018 [id number] Ambulatory [place] [facility] ing:OT Repository 01/06/2018 [id number] Ambulatory [place] [place] 1 [facility] ing:HPRAD Repository 01/06/2018/ [id number] Ambulatory BMSBuilding:B [place] 8 1 [facility] Repository 09/16/2017 [id number] Ambulatory [place] 7 [facility] ing:MTLAB Repository 07/25/2017/ [id number] Emergency [place] [place] 8 4 [facility] ing:ED Repository 02/24/2017/ [id number] Ambulatory BMSBuilding:[place] [place] 8 8 [place] Repository FUNCTIONAL STATUS FUNCTIONAL STATUS No Functional Status Records FoundEQUIPMENT EQUIPMENT No Equipment Records FoundPAYERS PAYERS ENCOUNTER GUARANTOR PAYER SUBSCRIBER SOURCE 01/09/2018 Chet Mary Primary Nuria LongDOB: [place]IP Practices LongDOB: Insurance:Medical [id number] Repository [id number] [facility] [address], Number: Lane [facility] [id number]: [id number] [id number]: [phone]) Date:0488-44-73Pyrk [phone] (HP) (HP)Tel: [phone]) Name:[facility] [phone] () [address], [place] [id number]: 01/09/2018 Secondary Tremayne FrenchDOB: [place]IP Practices Insurance:Medical [id number] Repository [address] Number: Lane [place] [id number] [address]Ufe: (330) Date:2006-01-01 [phone] (HP) [id number] Name:[facility] [address], [place] [id number]: 01/09/2018 Tertiary [facility] Insurance:Medical LongDOB: Repository [facility] [id number] Number: [id number] [place] Date:2011-09-29 - [address]Hzl: 330 [id number] [phone] (HP) Name:[facility] [address] [place] [id number]: 01/08/2018 [place] [id number] [place] Insurance:MEDICAL LONGDOB: [facility] [id number] Hospital [address]Imt: [phone]) Number: Repository [phone] (HP) [id number] Date:0722-84-48OD [address] [place] [id number]: 01/08/2018 Secondary NOT GIVENUNK [place] Insurance:SELF PAY [facility] Number: Effective Repository Date:2018-01-08 01/06/2018 CHET Mary Primary NURIA [place] [id number] [place] Insurance:MEDICAL LONGDOB: [facility] [id number] Hospital [address]Krj: (330) Number: Repository [phone] () [id number] Date:2531-08-42WD [address] [place] [id number]: 01/06/2018 Secondary NOT GIVENUNK [place] Insurance:SELF PAY [facility] Number: Effective Repository Date:2018-01-06 01/06/2018 CHET Mary Primary NURIA Garcia [place] [id number] [place] Insurance:MEDICAL LONGDOB: [facility] [id number] [address]Tel: (330) Number: Repository [phone] () [id number] Date:3249-19-04SI [address] [phone]: 01/06/2018 Secondary NOT GIVENUNK [place] Insurance:SELF PAY [facility] Number: Effective Repository Date:2017-12-13 01/06/2018 CHET Mary Primary NURIA Garcia [place] [id number] [place] Insurance:MEDICAL LONGDOB: [facility] [id number] [place] [id number]: (330) Number: Repository [phone] () [id number] Date:6437-12-67SE [address] [place] [id number]: 01/06/2018 Secondary NOT GIVENUNK [place] Insurance:SELF PAY [facility] Number: Effective Repository Date:2018-01-06 01/06/2018 CHET Mary Primary NURIA J [place] [id number] [place] Insurance:MEDICAL LONGDOB: [facility] [id number] Ville [id number]: (330) Number: Repository [phone] () [id number] Date:8548-43-57KJ [address] [address]RZ: 01/06/2018 Secondary NOT GIVENUNK [place] Insurance:SELF PAY [facility] Number: Effective Repository Date:2018-01-06 09/16/2017 CHET Mary Primary NURIA J [place] [id number] [place] Insurance:MEDICAL LONGDOB: [facility] [id number] Hospital [address]Wye: (330) Number: Repository [phone] () [id number] Date:3825-27-63NZ [address] [phone]: 09/16/2017 Secondary NOT GIVENUNK [place] Insurance:SELF PAY [facility] Number: Effective Repository Date:2017-09-16 07/25/2017 CHET Mary Primary NURIA J [place] [id number] [place] Insurance:MEDICAL LONGDOB: [facility] [id number] [facility] [address]Ykl: (330) Number: Repository [phone] () [id number] Date:9031-30-35SS [address] [phone]: 07/25/2017 Secondary NOT GIVENUNK [place] Insurance:SELF PAY [facility] Number: Effective Repository Date:2017-07-25 02/24/2017 CHET Mary Primary NURIA J [place] [id number] [place] Insurance:MEDICAL LONGDOB: [facility] [id number] Hospital [address]Wnv: (330) Number: Repository [phone] () [id number] Date:2861-40-75HK [address] [phone]: 02/24/2017 Secondary NOT GIVENUNK [place] Insurance:SELF PAY [facility] Number: Effective Repository Date:2017-02-24 SOCIAL HISTORY SOCIAL HISTORY No Social History Records FoundFAMILY HISTORY FAMILY HISTORY No Family History Records FoundADVANCE DIRECTIVES ADVANCE DIRECTIVES No Advanced Directives Records FoundINFORMATION SOURCE INFORMATION SOURCE DATE CREATED AUTHOR AUTHOR'S ORGANIZATION 01/28/2018 [place]
== END 2018-01-07 00:22 | disposition home or self-care (01) ==
PROVIDERS: Emergency Provider Emergency Medicine; Family Provider Internal Medicine; PCP Internal Medicine
DX: B34.9 Viral infection, unspecified (principal); R16.1 Splenomegaly, not elsewhere classified; E87.6 Hypokalemia; K21.9 Gastro-esophageal reflux disease without esophagitis; Z79.899 Other long term (current) drug therapy
CPT/HCPCS: 74176; 80048; 80076; 81001; 83690; 84703; 85025; 99284; A4216

== ENCOUNTER 2018-01-08 00:39 | Emergency (ER) | payer OTHER, SELFPAY ==
[2018-01-08 00:40] VITALS: BP 136/77; PULSE 104; RESP 16; TEMP 36.7; O2SAT 98; BMI 44.4
[2018-01-08 01:07] VITALS: RESP 16
--- NOTE | 2018-01-08 01:44 | ED.DCSUM_ITS ---
- ER Visit Summary Date of Service: 01/08/18 Chief Complaint: Fever History of Present Illness: The patient is a 32 F who presents with a fever of 99.7. She was seen in the emergency department yesterday for left upper abdominal pain. She had a CT which showed mild splenomegaly. She was advised of these findings. She states that she feels like it is gotten bigger today and she had an elevated temperature at home so was concerned and presented here. She also complains of fatigue. She was ill last week with a fever of 102 and headache which have since resolved. She complains of mild sore throat. No chest pain shortness of breath nausea vomiting diarrhea or rashes Physical Examination: Afebrile heart rate 104 vitals otherwise normal here. Moist mucous membranes Heart regular rate and rhythm Lungs are clear Abdomen soft nondistended she has some left upper quadrant abdominal tenderness I am unable to palpate spleen due to body habitus Alert Test Results: [place] screen is positive. Emergency Department Course and Treatment: [place] screen was positive. [id number] bedside ultrasound showed no free fluid to suggest splenic rupture. She was advised on supportive care. She will follow-up with her [facility] physician. She understands return for new or worsening symptoms and was discharged. Treatment Plan: [] Disposition: Discharge Impression: Mononucleosis This note was generated with [employer] dictation software. It may contain incorrect words, spelling, and punctuation that were not noted in review of the chart prior to signing ED Disposition - Plan for ED Patient: Chief Complaint: Fever Referrals: Anh Tsang DO [Primary Care Provider] -
[2018-01-08 01:58] LABS: Internal QC Validated? YES +Cl - CLEAR BKGD; Monotest POSITIVE (Negative); Record Kit Lot#, Mono 13171517
--- NOTE | 2018-01-08 02:09 | ED.DEP ---
ED Disposition - Plan for ED Patient: Chief Complaint: Fever Instructions: ED Mononucleosis Referrals: Anh Tsang DO [Primary Care Provider] -
[2018-01-08 02:18] VITALS: BP 121/64; PULSE 91; RESP 22; O2SAT 97
--- NOTE | 2018-01-08 02:20 | ED.RN ---
THIS NURSE REVIEWED D/C INSTRUCTIONS WITH PT. PT VERBALIZED UNDERSTANDING OF INSTRUCTIONS. PT DENIES FURTHER NEEDS OR QUESTIONS AT THIS TIME. PT AMBULATES FROM ROOM ON OWN WITHOUT ASSISTANCE FROM STAFF
--- OUTSIDE RECORDS SUMMARY | 2018-03-05 10:45 | XMS RPT_ITS ---
:1985 Author Organization OHIP Care Team Providers Name Role Phone Anh Tsang DO Attending Unavailable Trinh DO, Anh Referring Unavailable Trinh DO, Anh Consulting Unavailable Kailee Ho CIS COORDINATOR-C Attending Unavailable Alex Winn Attending Unavailable Trinh, Anh Primary Care Unavailable Trinh, Anh Attending Unavailable Trinh, Anh Referring Unavailable Trinh, Anh Primary Care Unavailable LatonyaOlivia antonio O Attending Unavailable Hurdland, Olivia O Referring Unavailable Trinh, Anh Primary [...] Cough / Jassi Paniagua Active [place] R05(ICD-10) [facility] Repository 01/06/2018 Unknown R53.83 - Other Jassi Paniagua Active [place] fatigue / Community R53.83(ICD-10) Hospital Repository 01/06/2018 Unknown R50.9 - Fever, Jassi Paniagua Active [place] unspecified / Community R50.9(ICD-10) Hospital Repository PROCEDURES PROCEDURES No Procedure Records FoundVITAL SIGNS VITAL SIGNS No Vital Signs Records FoundRESULTS RESULTS EMERGENCY DEPARTMENT Observed: 01/08/2018 Status: F Source: IAEGER SUMMARY 2:09 AM [facility] REPOSITORY [facility] Medical Records Department [address] [place] [address] Emergency Department Summary 01/08/18 0142 MR#: [id number] Acct: [id number] Name: KGCHET N Rep #: [id number] : 1985 32 From: Ariel Mayberry MD [...] due to body habitus Alert Test Results: Canadian screen is positive. Emergency Department Course and Treatment: Canadian screen was positive. Ieiix-qa-qqej bedside ultrasound showed no free fluid to suggest splenic rupture. She was advised on supportive care. She will follow-up with her primary care physician. She understands return for new or worsening symptoms and was discharged. Treatment Plan: [] Disposition: Discharge Impression: Mononucleosis This note was generated with APR dictation software. It may contain incorrect words, [...] your Primary Care Provider. Call [facility] ([phone]) or report to the closest Emergency Room. Call 911 if necessary. 01/08/18 0209 <Electronically signed by Ariel Mayberry MD> Date Ariel Mayberry MD Cosigner Signature (If Indicated): Date CC: Anh Tsang DO DISCHARGE INSTRUCTION Observed: 01/08/2018 Status: F Source: NARGIS 2:09 AM [facility] REPOSITORY [facility] Medical Records Department [address] [place] [address] Discharge Instruction 01/08/18208 MR#: [id number] Acct: [id number] Name: CHET SAUL Usman Rep #: [id number] : 1985 32 From: Ariel Mayberry MD [...] your Primary Care Provider. Call [facility] ([phone]) or report to the closest Emergency Room. Call 911 if necessary. 01/08/18208 <Electronically signed by Ariel Mayberry MD> Date Ariel Mayberry MD Cosigner Signature (If Indicated): Date CC: Anh Tsang DO MONOTEST Collected: 01/08/2018 Status: F Source: NARGIS 12:58 AM [facility] REPOSITORY TYPE CODE TESTS RESULT OUT OF REFERENCE UNITS RANGE LAB L700.5700 Negative High MONO POSITIVE Performed By: #### L700.5500 #### [facility] [address] [place], [address] EMERGENCY DEPARTMENT Observed: 01/07/2018 Status: F Source: NARGIS SUMMARY 12:27 AM [facility] REPOSITORY [facility] Medical Records Department [address] [place] [address] Emergency Department Summary 01/06/18 2150 MR#: [id number] Acct: [id number] Name: CHET SAUL Rep #: [id number] : 1985 32 From: Maryse Vazquez MD [...] 3. Hypokalemia This note was generated with ROSTRation software. It may contain incorrect words, spelling, [...] your Primary Care Provider. Call [facility] ([phone]) or report to the closest Emergency Room. Call 911 if necessary. 01/07/18 0027 <Electronically signed by Maryse Vazquez MD> Date Maryse Vazquez MD Cosigner Signature (If Indicated): Date CC: Anh Tsang DO DISCHARGE INSTRUCTION Observed: 01/07/2018 Status: F Source: IAEGER 12:10 AM [facility] REPOSITORY [facility] Medical Records Department [address] [place] [address] Discharge Instruction 01/07/18 0009 MR#: [id number] Acct: [id number] Name: CHET SAUL Rep #: [id number] : 1985 32 From: Maryse Vazquez MD [...] your Primary Care Provider. Call [facility] ([phone]) or report to the closest Emergency Room. Call 911 if necessary. 01/07/18 0010 <Electronically signed by Maryse Vazquez MD> Date Maryse Vazquez MD Cosigner Signature (If Indicated): Date CC: Anh Tsang DO CBC W/DIFF, AUTOMATED Collected: 01/06/2018 Status: F Source: NARGIS 9:50 PM [facility] REPOSITORY TYPE CODE TESTS RESULT OUT OF [...] COMMENT SCANNED Performed By: #### L100.0100 #### [facility] [address] [place], [place], [id number] URINALYSIS, COMPLETE Collected: 01/06/2018 Status: F Source: NARGIS 9:50 PM [facility] REPOSITORY Order Comment: Order Date: 01/06/18 How [...] URINE SEEN Performed By: #### L400.0001 #### [facility] [address] [facility] [address] [place], [place], [address] BASIC METABOLIC Collected: 01/06/2018 Status: F Source: [place] PROFILE (BMP) 9:50 PM [facility] REPOSITORY TYPE CODE TESTS RESULT OUT OF [...] Performed By: #### L500.2500, L500.3400, L501.2450 #### [facility] [address] [place], [place], [address] LIVER PROFILE Collected: 01/06/2018 Status: F Source: IAEGER 9:50 PM [facility] REPOSITORY TYPE CODE TESTS RESULT OUT OF [...] Performed By: #### L500.2500, L500.3400, L501.2450 #### [facility] [address] [place], [address] LIPASE Collected: 01/06/2018 Status: F Source: NARGIS 9:50 PM [facility] REPOSITORY TYPE CODE TESTS RESULT OUT OF RANGE REFERENCE UNITS LAB L501.2450 73-393 U/L Normal LIPASE 81 Performed By: #### L500.2500, L500.3400, L501.2450 #### [facility] [address] [place], [address] ,SERUM,HCG QUALI. Collected: Status: F Source: IAEGER 01/06/2018 9:50 PM [facility] REPOSITORY TYPE CODE TESTS RESULT OUT OF REFERENCE UNITS RANGE LAB L700.7000 0-9 Nonpreg Negative Normal HCGSQUAL NEGATIVE LAB L700.6700 =>Qualitative mIU/mL Normal HCG Qual < 1 triggr Performed By: #### L700.6800 #### [facility] [address] [facility] [place], [address] ABDOMEN/PELVIS WITHOUT Observed: 01/06/2018 Status: F Source: N[place] CONT 9:35 PM [facility] REPOSITORY [facility] Imaging Services [address] [place] [address] Abdomen/Pelvis without Cont MR#: [id number] Acct: [id number] Name: CHET SAUL Rep #: [id number] : 1985 F 32 From: Gali Parks MD PCP: Anh Tsang DO Status: REG ER Study: Abdomen/Pelvis without Cont Date of Exam: 01/06/18 Exam# [id number] Ordering Dr: Maryse Vazquez MD STUDY: CT [...] CC: Maryse Vazquez MD; Anh Tsang DO Manufacturing Quality Engineer: Signed URGENT CARE VISIT Observed: 01/06/2018 Status: F Source: [place] REPORT 1:[address] [place] [address] OFFICE VISIT Date of Service: 01/06/18 MR#: [id number] Acct: [id number] Name: CHET SAUL Rep #: [id number] : 1985 Provider: Jassi REYNA Age/Sex: 32/F Location: [facility] Status: Signed Intake Vital Signs01/06/18 Height 5 ft 5 in Intake Visit Reasons: PAIN IN LEFT SIDE Chief Complaint: Pain in left side Baby Stroller Rental Clerk Required: No Accompanied by: self Is patient [...] the above. This note was generated with APR dictation software. It may contain incorrect words, spelling, and punctuation that were not noted in checking the note before signing. Orders Orders: Coding Level of Care Code Off vis,new,level 4 Diagnoses Costochondritis M94.0 01/06/18 1344 <Electronically signed by Jassi REYNA> Date Jassi REYNA Cosigner Signature: Date (if applicable) CC: CHEST PA AND LATERAL Observed: 01/06/2018 Status: F Source: NARGIS 12:41 PM [facility] HOSPITAL REPOSITORY [facility] Imaging Services [address] [place] [address] Chest PA and Lateral MR#: [id number] Acct: [id number] Name: CHET SAUL Rep #: [id number] : 1985 F 32 From: Eliud Hart MD PCP: Anh Tsang DO Status: REG CLI Study: Chest PA and Lateral Date of Exam: 01/06/18 Exam# [id number] Ordering Dr: Jassi Paniagua STUDY: X-RAY CHEST [...] Eliud Hart MD at 13:05 EST Tel [phone], Service support , CC: Anh Tsang DO; Jassi REYNA Manufacturing Quality Engineer: Signed OT GENERAL EVALUATION Observed: 12/24/2017 Status: F Source: NARGIS 12:37 PM [facility] REPOSITORY [facility] [address] [place] [address]. [address] [place] [address] Fax REHABILITATION SERVICES INITIAL EVALUATION MR#: [id number] Acct: [id number] Name: CHET SAUL Rep #: [id number] : 1985 32 From: Liz GRANDA/Claudine, MELVI Referring Dr.: Olivia Hanks MD Status: REG R Insurance: [facility] Date: SELF PAY INSURANCE Patient's Visit Information [...] scale for touching 5th digit - Strength [employer] Power Electronics Engineer: 99# in R and 95 # in [...] to be FAXED BACK to us at [phone] for Medicare purposes. Please let me know if there are questions or concerns regarding this plan of care. Physician Signature: Date: <Electronically signed by Liz GRANDA/Claudine, ZULEYMAT> 12/24/17 1237 CC: Olivia Hanks MD; Anh Tsang DO ASHLI Signed For Medicare only, by signing this I certify the plan of care. Physicians Signature Date FREE T3 Collected: 09/16/2017 Status: F Source: NARGIS 12:00 PM [facility] REPOSITORY TYPE CODE TESTS RESULT OUT OF RANGE REFERENCE UNITS LAB L501.65780 2.18-3.98 pg/mL Normal FREE T3 2.7 Performed By: #### L501.35134, L501.9520, L506.0400 #### [facility] [address] [place], [address] THYROID STIM HORMONE Collected: 09/16/2017 Status: F Source: [place]ARGIS (TSH) 12:00 PM [facility] REPOSITORY TYPE CODE TESTS RESULT OUT OF RANGE REFERENCE UNITS LAB L501.9520 0.358-3.74 uIU/mL Normal TSH 2.17 Performed By: #### L501.46935, L501.9520, L506.0400 #### [facility] [place], [address] T4 FREE DIRECT Collected: 09/16/2017 Status: F Source: NARGIS 12:00 PM [facility] REPOSITORY TYPE CODE TESTS RESULT OUT OF RANGE REFERENCE UNITS LAB L506.0400 0.76-1.46 ng/dL Normal T4 FREE 1.26 DIRECT Performed By: #### L501.69083, L501.9520, L506.0400 #### [facility] [place], [address] EMERGENCY DEPARTMENT Observed: 07/26/2017 Status: F Source: NARGIS SUMMARY 12:44 AM [facility] REPOSITORY [facility] Medical Records Department [address] [place] [address] Emergency Department Summary 07/25/17 1840 MR#: [id number] Acct: [id number] Name: CHET SAUL Usman Rep #: [id number] : 1985 31 From: Alex Winn MD [...] using Dermabond This note was generated with APR dictation software. It may contain incorrect words, [...] problems, contact your Primary Care Provider. Call [facility] [employer] [facility] ([phone]) or report to the closest Emergency Room. Call 911 if necessary. 07/26/17 0044 <Electronically signed by Alex Winn MD> Date Alex Winn MD Cosigner Signature (If Indicated): Date CC: Anh Tsang DO DISCHARGE INSTRUCTION Observed: 07/26/2017 Status: F Source: NARGIS 12:44 AM [facility] REPOSITORY [facility] Medical Records Department [address] [place] [address] Discharge Instruction 07/25/17 1842 MR#: [id number] Acct: [id number] Name: CHET SAUL Rep #: [id number] : 1985 31 From: Alex Winn MD [...] your Primary Care Provider. Call [facility] ([phone]) or report to the closest Emergency Room. Call 911 if necessary. 07/26/17 0044 <Electronically signed by Alex Winn MD> Date Alex Winn MD Cosigner Signature (If Indicated): Date CC: Anh Tsang DO OFFICE VISIT REPORT Observed: 02/24/2017 Status: F Source: NARGIS 5:04 PM [facility] Services [address] [place] [address] OFFICE VISIT Date of Service: 02/24/17 MR#: [id number] Acct: [id number] Patient: CHET SAUL Rep #: [id number] : 1985 Provider: Kailee Ho NP Age/Sex: 31/F Location: [facility] Status: Signed Intake Vital Signs02/24/17 Height 5 ft 7 in 02/24/17 Weight: 260 lb 02/24/17 Body Mass Index (BMI) 40.7 Intake Visit Reasons: COUGH AND SINUS Baby Stroller Rental Clerk Required: No Is patient in pain?: No [...] the time but continues to have harsh, CIS COORDINATOR cough. ROS Const Constitutional: Positive for fatigue, [...] SEVERITY SOURCE 01/08/2018 Drug No Known Unknown [facility] Allergy/4160 Allergies/F00 Hospital 01974(SNOMED 9614460(RXNOR Repository CT) M) ENCOUNTERS ENCOUNTERS ADMIT/DISCHARGE ACCOUNT ADMITTING ENCOUNTER LOCATION SOURCE NUMBER CLASS 01/09/2018 66086 Ambulatory Building:[facility] OHIP Practices Repository 01/08/2018/ [id number] Emergency [place] 8 6 [facility] ing:ED Repository 01/06/2018/ [id number] Emergency [place] [place] 8 0 [facility] ing:ED Repository 01/06/2018 [id number] Ambulatory [place] 4 [facility] ing:OT Repository 01/06/2018 [id number] Ambulatory [place] 1 [facility] ing:HPRAD Repository 01/06/2018/ [id number] Ambulatory BMSBuilding:B [place] 8 1 [facility] Repository 09/16/2017 [id number] Ambulatory [place] 7 [facility] ing:MTLAB Repository 07/25/2017/ [id number] Emergency [place] [place] 8 4 [facility] ing:ED Repository 02/24/2017/ [id number] Ambulatory BMSBuilding:Mickey [place] 8 8 [place] [place] [place] Repository FUNCTIONAL STATUS FUNCTIONAL STATUS No Functional Status Records FoundEQUIPMENT EQUIPMENT No Equipment Records FoundPAYERS PAYERS ENCOUNTER GUARANTOR PAYER SUBSCRIBER SOURCE 01/09/2018 Chet Mary Primary Nuria LongDOB: OHIP Practices LongDOB: Insurance:Medical [id number] Repository [id number] [facility] [address], Number: Lane [facility] [address]Let: [id number] [id number]: (330) Date:[id number] [phone] (HP) (HP)Tel: (330) Name:[facility] [phone] () [address], [place] [id number]: 01/09/2018 Secondary Tremayne FrenchDOB: OHIP Practices Insurance:Medical [id number] Repository [address] Number: Lane [place] [id number] [address]Jjg: (330) Date:2006-01-01 [phone] (HP) [id number] Name:[facility] [address], [place] [id number]: 01/09/2018 Tertiary [facility] Insurance:Medical LongDOB: Repository [facility] [id number] Number: [id number] [place] Date:2011-09-29 - [address]Gxj: 330 [id number] [phone] (HP) Name:[facility] [address] [place] [id number]: 01/08/2018 CHET [place] [id number] [place] Insurance:MEDICAL LONGDOB: [facility] [id number] Hospital [address]Izb: (330) Number: Repository [phone] (HP) [id number] Date:1148-83-52JY [address] [place] [address]MQ: 01/08/2018 Secondary NOT GIVENUNK [place] Insurance:SELF PAY [facility] Number: Effective Repository Date:2018-01-08 01/06/2018 CHET Mary Primary NURIA [place] [id number] [place] Insurance:MEDICAL LONGDOB: [facility] [id number] Hospital [address]Bxz: (330) Number: Repository [phone] () [id number] Date:6092-31-57LH [address] [place] [address]GC: 01/06/2018 Secondary NOT GIVENUNK [place] Insurance:SELF PAY [facility] Number: Effective Repository Date:2018-01-06 01/06/2018 CHET Mary Primary NURIA Garcia [place] [id number] [place] Insurance:MEDICAL LONGDOB: [facility] [id number] [address]Tel: (330) Number: Repository [phone] () [id number] Date:2880-65-73EX [address] [address]OU: 01/06/2018 Secondary NOT GIVENUNK [place] Insurance:SELF PAY [facility] Number: Effective Repository Date:2017-12-13 01/06/2018 CHET Mary Primary NURIA Garcia [place] [id number] [place] Insurance:MEDICAL LONGDOB: [facility] [id number] [place] [id number]: (330) Number: Repository [phone] () [id number] Date:8999-65-06IW [address] [place] [address]QN: 01/06/2018 Secondary NOT GIVENUNK [place] Insurance:SELF PAY [facility] Number: Effective Repository Date:2018-01-06 01/06/2018 CHET Mary Primary NURIA J [place] [id number] [place] Insurance:MEDICAL LONGDOB: [facility] [id number] [place] [id number]: (330) Number: Repository [phone] () [id number] Date:9198-03-50SN [address] [address]YM: 01/06/2018 Secondary NOT GIVENUNK [place] Insurance:SELF PAY [facility] Number: Effective Repository Date:2018-01-06 09/16/2017 CHET Mary Primary NURIA J [place] [id number] [place] Insurance:MEDICAL LONGDOB: [facility] [id number] Hospital [address]Jrv: (330) Number: Repository [phone] () [id number] Date:0307-40-52DU [address] [address]YW: 09/16/2017 Secondary NOT GIVENUNK [place] Insurance:SELF PAY [facility] Number: Effective Repository Date:2017-09-16 07/25/2017 CHET Mary Primary NURIA J [place] [id number] [place] Insurance:MEDICAL LONGDOB: [facility] [id number] Hospital [address]Cva: (330) Number: Repository [phone] () [id number] Date:0627-41-65ZU [address] [address]WT: 07/25/2017 Secondary NOT GIVENUNK [place] Insurance:SELF PAY [facility] Number: Effective Repository Date:2017-07-25 02/24/2017 CHET Mary Primary NURIA J [place] [id number] [place] Insurance:MEDICAL LONGDOB: [facility] [id number] Hospital [address]Tdt: (330) Number: Repository [phone] () [id number] Date:4796-89-77UK [address] [address]TR: 02/24/2017 Secondary NOT GIVENUNK [place] Insurance:SELF PAY [facility] Number: Effective Repository Date:2017-02-24 SOCIAL HISTORY SOCIAL HISTORY No Social History Records FoundFAMILY HISTORY FAMILY HISTORY No Family History Records FoundADVANCE DIRECTIVES ADVANCE DIRECTIVES No Advanced Directives Records FoundINFORMATION SOURCE INFORMATION SOURCE DATE CREATED AUTHOR AUTHOR'S ORGANIZATION 01/28/2018 OHIP
== END 2018-01-08 02:20 | disposition home or self-care (01) ==
LOC: ED 00:59
PROVIDERS: Emergency Provider Emergency Medicine; Family Provider Internal Medicine; PCP Internal Medicine
DX: B27.90 Infectious mononucleosis, unspecified without complication (principal); E03.9 Hypothyroidism, unspecified; Z79.899 Other long term (current) drug therapy
CPT/HCPCS: 86308; 99282

== ENCOUNTER → 2018-04-11 15:47 | Outpatient (CLI) | payer OTHER, SELFPAY ==
[2018-04-11 20:46] LABS: Chlamydia Trachomatis by PCR Negative (Negative); Neisserai gonorrhoeae by PCR Negative (Negative); Probe Check PASS; Sample Adequacy Control PASS; Specimen Processing Control PASS
[2018-04-16 10:43] LABS: HPV Reflexed? NOT INDICATED
== END ==
PROVIDERS: Visit Provider Obstetrics & Gynecology
DX: Z12.4 Encounter for screening for malignant neoplasm of cervix (principal); Z11.3 Encounter for screening for infections with a predominantly sexual mode of transmission
CPT/HCPCS: 87491; 87591; 88175; G0145

== ENCOUNTER → 2018-04-14 16:01 | Outpatient (CLI) | payer OTHER, SELFPAY ==
[2018-04-14 17:22] LABS: hCG Titer Quant., Serum 3060 mIU/mL (<9 non-preg)
[2018-04-14 17:42] LABS: T4 Free Direct 1.09 ng/dL (0.76-1.46); Thyroid Stim Hormone (TSH) 3.98 uIU/mL (0.358-3.74)
== END ==
PROVIDERS: Visit Provider Obstetrics & Gynecology
DX: Z34.90 Encounter for supervision of normal pregnancy, unspecified, unspecified trimester (principal); Z87.59 Personal history of other complications of pregnancy, childbirth and the puerperium
CPT/HCPCS: 36415; 84439; 84443; 84702

== ENCOUNTER → 2018-04-16 16:23 | Outpatient (CLI) | payer OTHER, SELFPAY ==
[2018-04-16 18:24] LABS: hCG Titer Quant., Serum 4029 mIU/mL (<9 non-preg)
== END ==
PROVIDERS: Visit Provider Obstetrics & Gynecology
DX: O09.10 Supervision of pregnancy with history of ectopic pregnancy, unspecified trimester (principal); Z3A.00 Weeks of gestation of pregnancy not specified
CPT/HCPCS: 36415; 84702

== ENCOUNTER → 2018-04-18 16:00 | Outpatient (CLI) | payer OTHER, SELFPAY ==
[2018-04-18 17:58] LABS: hCG Titer Quant., Serum 4696 mIU/mL (<9 non-preg)
== END ==
PROVIDERS: Visit Provider Obstetrics & Gynecology
DX: O20.0 Threatened abortion (principal); Z3A.00 Weeks of gestation of pregnancy not specified
CPT/HCPCS: 36415; 84702

== ENCOUNTER → 2018-06-03 12:02 | Outpatient (CLI) | payer OTHER, SELFPAY ==
[2018-06-03 13:16] LABS: hCG Titer Quant., Serum 626 mIU/mL (<9 non-preg)
== END ==
PROVIDERS: Family Provider Internal Medicine; PCP Internal Medicine; Referring Provider Obstetrics & Gynecology; Visit Provider Obstetrics & Gynecology
DX: N92.6 Irregular menstruation, unspecified (principal)
CPT/HCPCS: 36415; 84702

== ENCOUNTER → 2018-06-05 12:17 | Outpatient (CLI) | payer OTHER, SELFPAY ==
[2018-06-05 14:14] LABS: hCG Titer Quant., Serum 1488 mIU/mL (<9 non-preg)
== END ==
PROVIDERS: Family Provider Internal Medicine; PCP Internal Medicine; Referring Provider Obstetrics & Gynecology; Visit Provider Obstetrics & Gynecology
DX: N92.6 Irregular menstruation, unspecified (principal)
CPT/HCPCS: 36415; 84702

== ENCOUNTER → 2018-06-27 15:34 | Outpatient (CLI) | payer OTHER, SELFPAY ==
[2018-06-27 16:55] LABS: Absolute Lymphocyte Count 1.94 X10^3/ul (0.83-4.51); Absolute Neutrophil Count 5.7 X10^3/uL (2.0-7.7); Basophil# 0.02 X10^3/uL; Basophil% 0.2 % (0-1); Eosinophil# 0.17 X10^3/uL; Hematocrit 37.1 % (37-47); Hemoglobin 12.3 g/dl (12.0-15.0); Lymphocyte # 1.94 X10^3/ul (4.0); Lymphocyte % 22.3 % (19-41); Mean Corp Hgb Conc 33.2 g/gl (32-36); Mean Corpuscular Hgb 27.3 pg (27.0-32.0); Mean Corpuscular Volume 82.3 fL (81-99); Mean Platelet Vol. 9.6 fl (6.2-12.0); Monocyte# 0.84 X10^3/uL; Monocyte% 9.6 % (0-10); Neutrophil # 5.73 X10^3/uL (2.7-7.7); Neutrophil % 65.8 % (47-70); Platelet Count 300 K/mm3 (150-450); RBC Distribution Width SD 42.1 fl (35.1-43.9); Red Blood Count 4.51 M/mm3 (4.2-5.4); White Blood Count 8.7 K/mm3 (4.4-11.0)
[2018-06-27 16:59] LABS: Color, Urine Yellow (Yellow); Glucose, Dipstick Normal (Normal); Ketone-Dipstick Negative (Negative); Leukocyte Esterase-Dipstick 25 /ul (Negative); Nitrite-Dipstick Negative (Negative); Occult Blood-Urine 10 /ul (Negative); Protein-Dipstick Negative (Negative); Urine Bilirubin Dipstick Negative (Negative); Urine Clarity Clear (Clear); Urine Urobilinogen Normal (Normal)
[2018-06-27 17:03] LABS: POSITIVE COUNT NO; POSITIVE DIFFERENTIAL NO; POSITIVE MORPHOLOGY NO
[2018-06-27 17:12] LABS: Free T3 2.3 pg/mL (2.18-3.98); T4 Free Direct 1.18 ng/dL (0.76-1.46); Thyroid Stim Hormone (TSH) 0.79 uIU/mL (0.358-3.74)
[2018-06-27 17:50] LABS: HIV - WCH Non-Reactive (Nonreactive); Rubella IgG 131.4 IU/mL
[2018-06-29 13:25] LABS: HEPATITIS B SURFACE AG Negative (Negative); Hep C Antibodies 0.1 s/co ratio (0.0-0.9)
[2018-07-04 02:05] LABS: Prenatal RPR NONREACTIVE (NONREACTIVE)
== END ==
PROVIDERS: Visit Provider Obstetrics & Gynecology
DX: Z34.81 Encounter for supervision of other normal pregnancy, first trimester (principal)
CPT/HCPCS: 36415; 81002; 82306; 84439; 84443; 84481; 85025; 86703; 86762; 86803; 87340

== ENCOUNTER → 2018-09-03 16:46 | Outpatient (CLI) | payer OTHER, SELFPAY ==
[2018-09-03 18:17] LABS: Thyroid Stim Hormone (TSH) 1.95 uIU/mL (0.358-3.74)
== END ==
PROVIDERS: Visit Provider Obstetrics & Gynecology
DX: E05.00 Thyrotoxicosis with diffuse goiter without thyrotoxic crisis or storm (principal)
CPT/HCPCS: 36415; 84443

== ENCOUNTER → 2018-11-14 08:52 | Outpatient (CLI) | payer OTHER, SELFPAY ==
[2018-11-14 11:07] LABS: Hematocrit 34.2 % (37-47); Hemoglobin 11.4 g/dL (12.0-15.0); Mean Corp Hgb Conc 33.3 g/dL (32-36); Mean Corpuscular Hgb 28.8 pg (27.0-32.0); Mean Corpuscular Volume 86.4 fL (81-99); Mean Platelet Vol. 9.9 fl (6.2-12.0); Platelet Count 260 K/mm3 (150-450); RBC Distribution Width CV 13.5 % (11.6-14.6); RBC Distribution Width SD 42.5 fl (35.1-43.9); Red Blood Count 3.96 M/mm3 (4.2-5.4)
[2018-11-14 11:28] LABS: Free T3 1.9 pg/mL (2.18-3.98); Glucose Challenge Gest 1H 50g 113 mg/dL (70-140); T4 Free Direct 0.96 ng/dL (0.76-1.46); Thyroid Stim Hormone (TSH) 1.69 uIU/mL (0.358-3.74)
== END ==
PROVIDERS: Visit Provider Obstetrics & Gynecology
DX: Z34.82 Encounter for supervision of other normal pregnancy, second trimester (principal)
CPT/HCPCS: 36415; 82950; 84439; 84443; 84481; 85027

== ENCOUNTER 2019-02-02 05:30 | Inpatient (IN) | payer OTHER, SELFPAY ==
--- NOTE | 2019-01-19 08:35 | PCM.HPOB.BLA ---
History and Physical Date of Admission: 02/02/19 OB HISTORY AND PHYSICAL EXAMINATION History of this : 33 yo female Ab2 with EDC 02/07/2019 by 5 weeks 6 days Ultrasound, presents to Labor and Delivery.for planned repeat C section. care remarkable for - 1.) H/O C section delivery. score poor. 34 % likely success predicted Plans repeat C/S 2.) DECLINES BTO 3.) Declines MSAFP and CF testing. Declines MaterniT testing as well. 4.) Hypothyroidism - takes Synthroid 5.) Prior ectopic, treated with Methotrexate 6.) Former smoker, quit PAST HISTORY: Breast/Ovarian/Colon Cancers - Denies Infections - Chicken pox Illnesses - hypothyroidism Accidents - no injuries of consequence History of Abnormal PAPS - NO Hospitalizations - see surgery and SHORT STAY OBSERVATION SURGICAL HISTORY: 1. T and A, as child 2. [place] teeth removed at age 17 3. 07/04/2015 Cheryle Guzman M.D. MENSTRUAL HISTORY: LMP Known?- Approximate-Month Known, LMP - 02/25/18, Age Onset Menarche - 12 PAST PREGNANCIES: Total Pregnancies - 4; Full Term Pregnancies - 1; Premature - 0; Abortions, Induced - 0; Abortions, Spontaneous - 2; Ectopics - 1; Multiple Births - 0; Living Children - 1 FAMILY HISTORY: PaternalGrandparent - FH: Diabetes mellitus type 2; SOCIAL HISTORY: Alcohol Use - denies drinking Smoking - Past recreational smoker, quit several years ago Diet - balanced Diet Lifestyle - low stress lifestyle and Exercise - regular Seat Belt Use - always Employer - [employer]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 Illicit Drug Use - denies use of street drugs Sexual Activity - Residence - lives with Place of - [place], [place] Hours Worked - 30 Spouse-Sig Other Name - Sahil Crawford Spouse-Sig Other Occupation - [place] [employer] Spouse-Sig Other Phone No - [phone] Children Name(s) - Neeraj Control - Allergies: No Known Drug Allergies Medications: During - Zantac 150 mg tablet; Synthroid 137 mcg tablet; Prometrium 200 mg capsule; 28 mg iron-800 mcg tablet; aspirin 81 mg tablet,delayed release Review of Systems: Non-contributory PHYSICAL EXAMINATION General Appearance: 33 yo female in no acute distress Vital Signs: AF, VSS Lungs: Regular rate and rhythm Breasts: deferred Abdomen: gravid Cervix: deferred Presentation: cephalic Size: AGA Movement: present Heart: present Impression /Plan: Intrauterine . 39 wk EGA Planned repeat C section. Declines BTO. Admit for delivery as planned.
[2019-02-02] VITALS (20 sets, daily range): BP systolic 86–146; BP diastolic 36–96; PULSE 67–91; RESP 14–18; TEMP 36.3–36.6; O2SAT 98–100; BMI 46.4
[2019-02-02] MEDS: Lactated Ringers 1,000 ML 999 ML IV (05:50)
[2019-02-02 06:10] LABS: Absolute Lymphocyte Count 2.12 X10^3/uL (0.83-4.51); Absolute Neutrophil Count 7.5 X10^3/uL (2.0-7.7); Basophil# 0.04 X10^3/uL; Basophil% 0.4 % (0-1); Eosinophil# 0.14 X10^3/uL; Eosinophils% 1.3 % (0-5); Hematocrit 33.8 % (37-47); Hemoglobin 11.4 g/dL (12.0-15.0); Lymphocyte # 2.12 X10^3/ul (4.0); Lymphocyte % 19.8 % (19-41); Mean Corp Hgb Conc 33.7 g/dL (32-36); Mean Corpuscular Hgb 28.1 pg (27.0-32.0); Mean Corpuscular Volume 83.3 fL (81-99); Mean Platelet Vol. 9.8 fl (6.2-12.0); Monocyte# 0.88 X10^3/uL; Monocyte% 8.2 % (0-10); NRBC Flagged by Analyzer 0 % (0-5); Neutrophil # 7.52 X10^3/uL (2.7-7.7); Platelet Count 292 K/mm3 (150-450); RBC Distribution Width CV 13.8 % (11.6-14.6); Red Blood Count 4.06 M/mm3 (4.2-5.4); White Blood Count 10.7 K/mm3 (4.4-11.0)
[2019-02-02] MEDS: Lactated Ringers 1,000 ML 150 ML IV (06:51)
[2019-02-02] MEDS: Sodium Citrate/Citric Acid 30 ML UDC PO (06:51)
--- NOTE | 2019-02-02 07:28 | DCINST_ITS ---
Discharge Diet: No Restrictions Discharge Activity: May not drive while taking narcotic pain medications., May Shower, May Take a Tub Bath May resume sexual activity in: 4-6 weeks Lifting Restrictions: 20 pounds Additional Activity Instructions:: Nothing in the vagina for 4-6 weeks. You may return to work/school in 6 weeks. Change Dressing in (Days):: 14 Remove Dressing in (days):: 14 Cleanse incision/area with: Soap & Water, Keep Dressing Clean & Dry Additional Instructions: If you experience any of the following, contact your healthcare provider. * Bleeding that soaks a pad every hour for 2 hours * Fever 100.4 or higher * Unrelieved incision or abdominal pain * Swelling, redness, discharge or bleeding from your incision * Problems urinating (including inability to urinate or burning while urinating). * Visual changes * Severe headache * Flu-like symptoms * Pain or redness in one of both of your breasts * Pain, warmth, tenderness or swelling in your legs, especially the calf area * Frequent nausea and vomiting * Symptoms of depression or anxiety If you experience any of the following, call 911 or go to the nearest Emergency Room. * Chest pain * Problems breathing * Seizure activity * Partial or complete paralysis of a body part, slurred speech, weakness or drooping of the face, or a sudden inability to walk or hold your balance Allergies/Adverse Reactions: Allergies No Known Allergies Allergy (Verified 02/02/19 05:49) Medications to take at Discharge Esomeprazole Magnesium [Nexium 24Hr] 20 mg PO X1 06/04/15 Levothyroxine [Synthroid] 137 mcg PO DAILY 06/04/15 Docosahexanoic Acid [ Dha] 200 mg PO DAILY 02/02/19 Docusate Sodium [Colace] 100 mg PO BID #30 cap 02/02/19 Ergocalciferol [Vitamin D] 2,000 unit PO DAILY 02/02/19 Naproxen [Naprosyn] 250 - 500 mg PO TID PRN PRN #30 tab 02/02/19 Oxycodone [Oxyir] 5 mg PO Q6H PRN PRN 3 Days #15 tablet 02/02/19 Polyethylene Glycol 3350 [Miralax] 17 gm PO DAILY PRN #14 packet 02/02/19 The following prescriptions were given: Docusate Sodium [Colace] 100 mg PO BID #30 cap Transmission Status: Pending to [facility] Polyethylene Glycol 3350 [Miralax] 17 gm PO DAILY PRN #14 packet PRN Reason: Constipation Transmission Status: Pending to [facility] Naproxen [Naprosyn] 250 - 500 mg PO TID PRN PRN #30 tab PRN Reason: Mild-Mod Pain (1-06/20) Transmission Status: Pending to [facility] Oxycodone [Oxyir] 5 mg PO Q6H PRN PRN 3 Days #15 tablet PRN Reason: Mod-Severe Pain (-11/20) Transmission Status: Sent to [facility] Follow-Up: Call to make an appointment with your doctor for an incision check in 1-2 weeks. You will also need a 6 week post- follow up appointment. Test results from this visit will be discussed in further detail at your follow- up appointment, if applicable. Please Follow Up With: Hoang Velasquez MD - [phone] When: Keep postop appointment as scheduled Primary Care Physician: Anh Tsang DO [Primary Care Provider] - Proposed Discharge Date: 02/04/19
[2019-02-02] MEDS: Oxytocin 30 units/NS 500 ml 30 UNITS/500 ML IV.SOLN 167 UNITS IV (07:55)
--- NOTE | 2019-02-02 08:22 | OP.PCM_ITS ---
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 Olvera viable male in vertex presentation. Apgars 8/9, Baby weight: 7# 9 oz There was a normal appearing uterus, fallopian tubes and ovaries bilaterally. There were minimal filmy adhesions between the bladder and lower uterine segment. PATH: Routine cord blood for typing collected. Narrative account: After the risks, benefits and alternatives of the procedure were reviewed with the patient, informed consent was obtained. The patient was taken to the Operating room with an IV running, and placed in a seated position on the operating table for placement of the spinal. Once the spinal had been administered, she was briefly frog-legged for Savage catheter placement, and then repositioned to dorsal supine position with leftward displacement of the uterus, and prepped and draped in the usual sterile fashion. Once the spinal was deemed adequate, a Pfannenstiel skin incision was created using the knife (through the prior skin incision scar). The incision was carried down to the rectus fascia using the knife. The fascia was nicked in the midline. The fascial incision was extended bilaterally using curved Singh scissors. The superior aspect of the fascial incision was grasped with Melisa clamps and tented up and the underlying rectus abdominal muscles were dissected free. In a similar manner, the inferior aspect of the facial incision was grasped with Melisa clamps tented up and the underlying rectus abdominal muscles were dissected free. The rectus abdominis muscles were in the midline and the peritoneum was identified and entered by blunt dissection high in the incision. The peritoneum was stretched laterally and a bladder blade was inserted. A bladder flap was created along the lower uterine segment with Metzenbaum scissors . The uterine incision was then created using Metzenbaum scissors. The operators fingertips were used to extend the uterine incision by blunt dissection in a caudad- cephalad orientation . Clear fluid was noted at amniotomy. The vertex was then delivered atraumatically through the incision. The OP and nares were bulb suctioned on the abdomen. The shoulders delivered easily . The cord clamped x two and cut. And the was handed off to the nurse awaiting delivery after briefly showing him to his parents. The baby had a spontaneous, vigorous cry. The placenta was then delivered. The uterus was exteriorized and cleared of clots and debris . The uterine incision was repaired with 1 Vicryl in a running locked fashion. A second imbricating layer was then placed, using 1 Monocryl in running nonlocked fashion. Bovie cautery was used to treat any bleeding areas . Excellent hemostasis was noted. At this point the uterus was returned to the abdominal cavity. The gutters were cleared of clots and debris and the incision at the uterus was inspected. Kristin was applied along the entire incision for continued hemostasis. A horizontal mattress stitch of 1 Vicryl was placed at the R uterine angle for additional hemostasis. Excellent hemostasis was noted. The peritoneal edges and rectus abdominis muscles were reapproximated in the midline with series of vertical mattress stitches of 1 Vicryl. Excellent hemostasis was noted at the subfascial space The fascia was closed in a running nonlocked fashion with a Stratofix. The Subcutaneous fatty tissue was Bovie cauterized as needed for hemostasis. Kristin was liberally dusted at this layer to prevent seroma formation. This layer was then reapproximated in a two layer closure of running 3-0 Vicryl to eliminate space. The skin edges were closed in a Subcuticular stitch of 4-0 Monocryl. The incision was cleansed. Cavilon, Steristrips, and Mepilex dressing were applied to the skin . The patient was then transferred to the recovery room bed in stable condition after tolerating the procedure well. Sponge, lap, needle and instrument counts correct times two. Medications given preop and intraoperatively included: Ancef 3 gm IV given integration technician to the operating room. The patient also received Pitocin given IV after cord clamp, and Toradol 30 mg IV times one. For a complete listing of medications given preop and intraoperatively, please see the anesthesia record. Specimen(s) sent to pathology: None Drain: Savage to straight drain Fluids Replaced: LR Cord Entanglement: Around neck x 2, loose Cord Vessel Description: 3 Vessels Esitmated Blood Loss (ml): 800 Infant Gender: Male (1 minute): 8 (5 minute): 9 Delayed cord clamping: No Antibiotic Given: Ancef 3 grams IV x1 Pt instructed on risks of surgery: Bleeding, Anesthesia Risks, Infection, Need for Future C-Sections Complications: None - Admit VTE Documentation VTE Present on Admission: No VTE Mechan Device Prophylaxis: SCD's VTE Pharm Prophylaxis ordered?: Yes
[2019-02-02] MEDS: Lactated Ringers 500 ML IV.SOLN. 250 ML IV (09:00)
[2019-02-02] MEDS: Polyethylene Glycol 3350 17 GM PACKET PO ×2 (10:31→21:53)
[2019-02-02] MEDS: Magnesium Hydroxide 30 ML UDC PO ×2 (10:31→21:53)
[2019-02-02] MEDS: Lactated Ringers 1,000 ML 100 ML IV (12:00)
[2019-02-02] MEDS: Ketorolac 30 MG/ML Syringe IV ×2 (14:41→21:02)
--- NOTE | 2019-02-02 19:46 | NURSING ---
Indwelling gutierrez catheter present. WNL.
[2019-02-02] MEDS: 0.9% Saline Lock 10 ML Syringe IV (21:03)
[2019-02-03] VITALS (7 sets, daily range): BP systolic 123–135; BP diastolic 65–78; PULSE 72–94; RESP 14–20; TEMP 36.1–36.8; O2SAT 96–99
[2019-02-03] MEDS: Ketorolac 30 MG/ML Syringe IV ×4 (02:48→20:42)
[2019-02-03] MEDS: 0.9% Saline Lock 10 ML Syringe IV ×4 (02:48→20:43)
[2019-02-03 04:13] LABS: Hematocrit 28.9 % (37-47); Hemoglobin 9.6 g/dL (12.0-15.0); Mean Corp Hgb Conc 33.2 g/dL (32-36); Mean Corpuscular Hgb 27.9 pg (27.0-32.0); Mean Platelet Vol. 9.9 fl (6.2-12.0); Platelet Count 218 K/mm3 (150-450); RBC Distribution Width SD 42.6 fl (35.1-43.9); Red Blood Count 3.44 M/mm3 (4.2-5.4); White Blood Count 11.2 K/mm3 (4.4-11.0)
[2019-02-03] MEDS: Levothyroxine 137 MCG Tablet PO (05:44)
[2019-02-03] MEDS: Enoxaparin 40 MG/0.4 ML Syringe SC (05:56)
--- NOTE | 2019-02-03 10:36 | PN.OBGYN_ITS ---
<Bushra Humphries - Last Filed: 02/03/19 10:36> Subjective: Pain well controlled, tolerating diet, denies flatus; has been up and walking; infant well; spouse bedside and supportive Objective: AVSS Breasts soft, nipples atraumatic Fundus firm, midline, u/u, lochia scant LTCS dressing dry/intact - Physical Exam Vitals/I&O's: Vital Signs Temp Pulse Resp BP Pulse Ox 97.6 F L 90 20 H 135/75 H 99 02/03/19 09:20 02/03/19 09:20 02/03/19 09:20 02/03/19 09:20 02/03/19 09:20 Oxygen Delivery Method Room Air Weight: 279 lb Body Mass Index (BMI) 46.4 Intake and Output for Last 24 Hours 02/01/19 02/02/19 02/03/19 23:59 23:59 23:59 Intake Total 6512.5 / 6512.5 240 / 240 Output Total 6350 / 6350 1000 / 1000 Balance 162.5 / 162.5 -760 / -760 General: Alert, Oriented x3, Cooperative, No apparent distress HEENT: PERRLA, EOMI Oral: Moist Mucosa Neck: Supple Lungs: Clear to auscultation, Normal air movement Cardiovascular: Regular rate, Regular Rhythm Abdomen: Bowel Sounds Present, Hypoactive Bowel Sounds Extremities: No edema, Capillary Refill Less than 3 Seconds, No Calf Tenderness, Peripheral Pulses Normal Skin: No rashes Musculoskeletal: No Tenderness to Palpation of Joints or Extremities Neurological: Cranial nerves II-XII grossly intact, Deep Tendon Reflexes 2+/4 and Symmetrical, Neuro grossly intact Psych/Mental Status: Normal Affect, Appropriate, Alert and oriented to time, place, person, mood and affect Laboratory Results 02/03/19 04:00: WBC 11.2 H, RBC 3.44 L, Hgb 9.6 L, Hct 28.9 L, MCV 84.0, MCH 27.9, MCHC 33.2, RDW Std Deviation 42.6, RDW Coeff of Chan 14.0, Plt Count 218, MPV 9.9 Current Medications Acetaminophen (Tylenol) 1,000 mg PO Q8H PRN PRN Reason: Pain Score 1-3/10 Bisacodyl (Dulcolax) 10 mg RECTAL UD PRN PRN Reason: If no BM Enoxaparin Sodium (Lovenox) 40 mg SC DAILY@0600 [facility] Last Admin: 02/03/19 05:56 Dose: 40 mg Documented by: Hydrocortisone (Hytone) 1 applic TOPICAL TID PRN PRN; Protocol PRN Reason: Discomfort Naloxone HCl 4 mg/ Dextrose 504 mls @ 0 mls/hr IV .Q0M PRN; Protocol PRN Reason: Respiratory depression Naloxone HCl 4 mg/ Dextrose 504 mls @ 0 mls/hr IV .Q0M PRN; Protocol PRN Reason: To maintain Resp. rate >10 Ketorolac Tromethamine (Toradol) 30 mg IV Q6H [facility] Stop: 02/04/19 08:16 Last Admin: 02/03/19 09:19 Dose: 30 mg Documented by: Levothyroxine Sodium (Synthroid) 137 mcg PO DAILY@0600 [facility] Last Admin: 02/03/19 05:44 Dose: 137 mcg Documented by: Magnesium Hydroxide (Milk Of Magnesia) 30 ml PO BID [facility] Last Admin: 02/02/19 21:53 Dose: 30 ml Documented by: Methylergonovine Maleate (Methergine) 0.2 mg IM X1 PRN PRN Reason: Uterine Atony Naloxone HCl (Narcan) 0.02 mg IV Q1M PRN PRN Reason: RR <10 and pt unresponsive Naproxen (Naprosyn) 250 - 500 mg PO Q8H PRN PRN; Protocol PRN Reason: Pain Score 1-3/10 Ondansetron HCl (Zofran) 4 mg IV Q4H PRN PRN PRN Reason: Nausea Oxycodone HCl (Oxyir) 5 - 10 mg PO Q4H PRN PRN PRN Reason: Pain Score 4-10/10 Polyethylene Glycol (Miralax) 17 gm PO BID [facility] Last Admin: 02/02/19 21:53 Dose: 17 gm Documented by: Prochlorperazine Edisylate (Compazine Iv) 10 mg IV Q6H PRN PRN PRN Reason: NAUSEA Senna/Docusate Sodium (Senokot-S, Jayashree-Colace) 0 tablet PO DAILY PRN PRN Reason: Constipation Simethicone (Mylicon) 80 mg PO PCHS PRN PRN Reason: Indigestion/stomach pain Sodium Chloride () 5 - 15 ml IV UD PRN PRN Reason: SALINE FLUSH Last Admin: 02/03/19 09:19 Dose: 10 ml Documented by: Zolpidem Tartrate (Ambien (Generic)) 5 mg PO QHS PRN PRN PRN Reason: Insomnia Medical Necessity - Tobacco Use Smoking Status: Former smoker Assessment/Plan Assessment: 33yo G4now P2022 delivered via RLTCS at 40w5d by 5w6d US PO/PP Day #1, Normal involution, normal postoperative/ course Plan: Continue routine care Discharge teaching started <Cheryle Guzman - Last Filed: 02/03/19 11:07> - Physical Exam Vitals/I&O's: Vital Signs Temp Pulse Resp BP Pulse Ox 97.6 F L 90 20 H 135/75 H 99 02/03/19 09:20 02/03/19 09:20 02/03/19 09:20 02/03/19 09:20 02/03/19 09:20 Oxygen Delivery Method Room Air Weight: 126.552 kg Body Mass Index (BMI) 46.4 Intake and Output for Last 24 Hours 02/01/19 02/02/19 02/03/19 23:59 23:59 23:59 Intake Total 6512.5 / 6512.5 240 / 240 Output Total 6350 / 6350 1000 / 1000 Balance 162.5 / 162.5 -760 / -760 Laboratory Results 02/03/19 04:00: WBC 11.2 H, RBC 3.44 L, Hgb 9.6 L, Hct 28.9 L, MCV 84.0, MCH 27.9, MCHC 33.2, RDW Std Deviation 42.6, RDW Coeff of Chan 14.0, Plt Count 218, MPV 9.9 Current Medications Acetaminophen (Tylenol) 1,000 mg PO Q8H PRN PRN Reason: Pain Score 1-3/10 Bisacodyl (Dulcolax) 10 mg RECTAL UD PRN PRN Reason: If no BM Enoxaparin Sodium (Lovenox) 40 mg SC DAILY@0600 [facility] Last Admin: 02/03/19 05:56 Dose: 40 mg Documented by: Hydrocortisone (Hytone) 1 applic TOPICAL TID PRN PRN; Protocol PRN Reason: Discomfort Naloxone HCl 4 mg/ Dextrose 504 mls @ 0 mls/hr IV .Q0M PRN; Protocol PRN Reason: Respiratory depression Naloxone HCl 4 mg/ Dextrose 504 mls @ 0 mls/hr IV .Q0M PRN; Protocol PRN Reason: To maintain Resp. rate >10 Ketorolac Tromethamine (Toradol) 30 mg IV Q6H [facility] Stop: 02/04/19 08:16 Last Admin: 02/03/19 09:19 Dose: 30 mg Documented by: Levothyroxine Sodium (Synthroid) 137 mcg PO DAILY@0600 [facility] Last Admin: 02/03/19 05:44 Dose: 137 mcg Documented by: Magnesium Hydroxide (Milk Of Magnesia) 30 ml PO BID [facility] Last Admin: 02/02/19 21:53 Dose: 30 ml Documented by: Methylergonovine Maleate (Methergine) 0.2 mg IM X1 PRN PRN Reason: Uterine Atony Naloxone HCl (Narcan) 0.02 mg IV Q1M PRN PRN Reason: RR <10 and pt unresponsive Naproxen (Naprosyn) 250 - 500 mg PO Q8H PRN PRN; Protocol PRN Reason: Pain Score 1-3/10 Ondansetron HCl (Zofran) 4 mg IV Q4H PRN PRN PRN Reason: Nausea Oxycodone HCl (Oxyir) 5 - 10 mg PO Q4H PRN PRN PRN Reason: Pain Score 4-10/10 Polyethylene Glycol (Miralax) 17 gm PO BID [facility] Last Admin: 02/02/19 21:53 Dose: 17 gm Documented by: Prochlorperazine Edisylate (Compazine Iv) 10 mg IV Q6H PRN PRN PRN Reason: NAUSEA Senna/Docusate Sodium (Senokot-S, Jayashree-Colace) 0 tablet PO DAILY PRN PRN Reason: Constipation Simethicone (Mylicon) 80 mg PO PCHS PRN PRN Reason: Indigestion/stomach pain Sodium Chloride () 5 - 15 ml IV UD PRN PRN Reason: SALINE FLUSH Last Admin: 02/03/19 09:19 Dose: 10 ml Documented by: Zolpidem Tartrate (Ambien (Generic)) 5 mg PO QHS PRN PRN PRN Reason: Insomnia
[2019-02-03] MEDS: Magnesium Hydroxide 30 ML UDC PO (11:50)
[2019-02-03] MEDS: Polyethylene Glycol 3350 17 GM PACKET PO (11:50)
[2019-02-03] MEDS: Calcium Carbonate 500 MG Tablet PO (17:39)
--- NOTE | 2019-02-03 18:54 | NURSING ---
Pt stated she did not like the celebration meal. RN recommended ordering something else or going to [employer] but pt refused. Tolerating regular diet well.
[2019-02-03] MEDS: Senna/Docusate Sodium 1 Tablet PO (21:50)
[2019-02-04 01:15] VITALS: BP 130/76; PULSE 86; RESP 14; TEMP 36.6
[2019-02-04] MEDS: Ketorolac 30 MG/ML Syringe IV ×2 (03:16→11:16)
[2019-02-04] MEDS: 0.9% Saline Lock 10 ML Syringe IV (03:16)
--- NOTE | 2019-02-04 04:13 | NURSING ---
Huddle form filled out for mother's request for formula. Mother states that she feels that her baby isn't getting enough. Reassured mother that her baby is getting enough and that formula is not medically indicated at this time. has appropriate output and weight loss is WNL. Mother verbalizes understanding but states that she just wants to try the formula with her baby. Mother wants to use a nipple with the bottle. Educated mother that a nipple is not recommended for breast feeding infants. Educated mother on how to hand express, pump, and use a nipple shield throughout the night. See feed assessment notes. Educated mother on importance of infant latching on, hand expressing, or pumping for ongoing breast feeding for milk supply. Mother verbalizes understanding. Will continue to encourage breast feeding. Formula has not been given to infant at this time.
[2019-02-04] MEDS: Levothyroxine 137 MCG Tablet PO (05:56)
[2019-02-04] MEDS: Enoxaparin 40 MG/0.4 ML Syringe SC (05:56)
--- NOTE | 2019-02-04 08:12 | PCM.PN.OB ---
Subjective: POD#2 Repeat C/S at 39 wks Doing well. still not sleeping well. States breast feeding OK. Pain control adequate. Bladder working well. + flatus and stool. would like to go home today if baby is released and all OK. - Physical Exam Vitals/I&O's: Vital Signs Temp Pulse Resp BP Pulse Ox 98 F 86 14 130/76 H 96 02/04/19 01:15 02/04/19 01:15 02/04/19 01:15 02/04/19 01:15 02/03/19 20:28 Oxygen Delivery Method Room Air Weight: 126.552 kg Body Mass Index (BMI) 46.4 Intake and Output for Last 24 Hours 02/02/19 02/03/19 02/04/19 23:59 23:59 23:59 Intake Total 6512.5 / 6512.5 240 / 240 Output Total 6350 / 6350 1000 / 1000 Balance 162.5 / 162.5 -760 / -760 General: Alert, Oriented x3, Cooperative, No apparent distress HEENT: Atraumatic, EOMI Neck: Supple Abdomen: Soft - Fundus firm at umbilicus minus 1 cm. minimally tender c/w postop status Skin: Incision - Mepilex CDI Psych/Mental Status: Normal Affect Current Medications Acetaminophen (Tylenol) 1,000 mg PO Q8H PRN PRN Reason: Pain Score 1-3/10 Bisacodyl (Dulcolax) 10 mg RECTAL UD PRN PRN Reason: If no BM Calcium Carbonate (Tums) 500 mg PO Q6H PRN PRN PRN Reason: HEARTBURN Last Admin: 02/03/19 17:39 Dose: 500 mg Documented by: Enoxaparin Sodium (Lovenox) 40 mg SC DAILY@0600 [facility] Last Admin: 02/04/19 05:56 Dose: 40 mg Documented by: Ferrous Gluconate (Ferrous Gluconate) 324 mg PO DAILY@0800 [facility] Hydrocortisone (Hytone) 1 applic TOPICAL TID PRN PRN; Protocol PRN Reason: Discomfort Naloxone HCl 4 mg/ Dextrose 504 mls @ 0 mls/hr IV .Q0M PRN; Protocol PRN Reason: Respiratory depression Naloxone HCl 4 mg/ Dextrose 504 mls @ 0 mls/hr IV .Q0M PRN; Protocol PRN Reason: To maintain Resp. rate >10 Ketorolac Tromethamine (Toradol) 30 mg IV Q6H [facility] Stop: 02/04/19 08:16 Last Admin: 02/04/19 03:16 Dose: 30 mg Documented by: Levothyroxine Sodium (Synthroid) 137 mcg PO DAILY@0600 [facility] Last Admin: 02/04/19 05:56 Dose: 137 mcg Documented by: Magnesium Hydroxide (Milk Of Magnesia) 30 ml PO BID [facility] Last Admin: 02/03/19 21:52 Dose: Not Given Documented by: Methylergonovine Maleate (Methergine) 0.2 mg IM X1 PRN PRN Reason: Uterine Atony Naloxone HCl (Narcan) 0.02 mg IV Q1M PRN PRN Reason: RR <10 and pt unresponsive Naproxen (Naprosyn) 250 - 500 mg PO Q8H PRN PRN; Protocol PRN Reason: Pain Score 1-3/10 Ondansetron HCl (Zofran) 4 mg IV Q4H PRN PRN PRN Reason: Nausea Oxycodone HCl (Oxyir) 5 - 10 mg PO Q4H PRN PRN PRN Reason: Pain Score 4-10/10 Polyethylene Glycol (Miralax) 17 gm PO BID [facility] Last Admin: 02/03/19 21:52 Dose: Not Given Documented by: Prochlorperazine Edisylate (Compazine Iv) 10 mg IV Q6H PRN PRN PRN Reason: NAUSEA Senna/Docusate Sodium (Senokot-S, Jayashree-Colace) 0 tablet PO DAILY PRN PRN Reason: Constipation Last Admin: 02/03/19 21:50 Dose: 1 tablet Documented by: Simethicone (Mylicon) 80 mg PO PCHS PRN PRN Reason: Indigestion/stomach pain Sodium Chloride () 5 - 15 ml IV UD PRN PRN Reason: SALINE FLUSH Last Admin: 02/04/19 03:16 Dose: 10 ml Documented by: Zolpidem Tartrate (Ambien (Generic)) 5 mg PO QHS PRN PRN PRN Reason: Insomnia Medical Necessity - Tobacco Use Smoking Status: Former smoker Assessment/Plan POD#2 Repeat C/S at 39 wk EGA Stable , postop. Dischg home. Iron daily for one month. Discussed incision care, when to remove dressing, and activity restrictions.
[2019-02-04 09:00] VITALS: BP 121/77; PULSE 78; RESP 16; TEMP 37.1; O2SAT 98
[2019-02-04] MEDS: Ferrous Gluconate 324 MG Tablet PO (11:16)
[2019-02-04 14:25] VITALS: BP 141/83; PULSE 94; RESP 16; TEMP 36.9
--- NOTE | 2019-02-04 15:32 | PCM.DC.SUM ---
Discharge Date and Diagnosis Date of Admission: 02/02/19 - 39 wk prior C/S planned repeat Date of Discharge: 02/04/19 - Same S/P repeat C section. Hospital Course and Treatment Operations: - - Repeat C section Summary of Care Provided: The patient is a 33 year old female at 39 wk EGA with hx of prior C/S presents for repeat C section as planned. Procedure performed on 02/02/19. Procedure uncomplicated and resulted in delivery of a polk viable male Apgars 8/9, Baby weight: 7# 9 oz course uneventful. Requests discharge home on POD#2 RTO in 1-2 wk for postop check up. Reviewed activity restrictions and care of incision, including when to remove dressing. - Physical Exam Vitals/I&O's: Vital Signs Temp Pulse Resp BP Pulse Ox 98.5 F 94 16 141/83 H 98 02/04/19 14:25 02/04/19 14:25 02/04/19 14:25 02/04/19 14:25 02/04/19 09:00 Oxygen Delivery Method Room Air Weight: 126.552 kg Body Mass Index (BMI) 46.4 Intake and Output for Last 24 Hours 02/02/19 02/03/19 02/04/19 23:59 23:59 23:59 Intake Total 6512.5 / 6512.5 240 / 240 Output Total 6350 / 6350 1000 / 1000 Balance 162.5 / 162.5 -760 / -760 Current Medications Acetaminophen (Tylenol) 1,000 mg PO Q8H PRN PRN Reason: Pain Score 1-3/10 Bisacodyl (Dulcolax) 10 mg RECTAL UD PRN PRN Reason: If no BM Calcium Carbonate (Tums) 500 mg PO Q6H PRN PRN PRN Reason: HEARTBURN Last Admin: 02/03/19 17:39 Dose: 500 mg Documented by: Enoxaparin Sodium (Lovenox) 40 mg SC DAILY@0600 [facility] Last Admin: 02/04/19 05:56 Dose: 40 mg Documented by: Ferrous Gluconate (Ferrous Gluconate) 324 mg PO DAILY@0800 [facility] Last Admin: 02/04/19 11:16 Dose: 324 mg Documented by: Hydrocortisone (Hytone) 1 applic TOPICAL TID PRN PRN; Protocol PRN Reason: Discomfort Naloxone HCl 4 mg/ Dextrose 504 mls @ 0 mls/hr IV .Q0M PRN; Protocol PRN Reason: Respiratory depression Naloxone HCl 4 mg/ Dextrose 504 mls @ 0 mls/hr IV .Q0M PRN; Protocol PRN Reason: To maintain Resp. rate >10 Levothyroxine Sodium (Synthroid) 137 mcg PO DAILY@0600 [facility] Last Admin: 02/04/19 05:56 Dose: 137 mcg Documented by: Magnesium Hydroxide (Milk Of Magnesia) 30 ml PO BID [facility] Last Admin: 02/04/19 11:13 Dose: Not Given Documented by: Methylergonovine Maleate (Methergine) 0.2 mg IM X1 PRN PRN Reason: Uterine Atony Naloxone HCl (Narcan) 0.02 mg IV Q1M PRN PRN Reason: RR <10 and pt unresponsive Naproxen (Naprosyn) 250 - 500 mg PO Q8H PRN PRN; Protocol PRN Reason: Pain Score 1-3/10 Ondansetron HCl (Zofran) 4 mg IV Q4H PRN PRN PRN Reason: Nausea Oxycodone HCl (Oxyir) 5 - 10 mg PO Q4H PRN PRN PRN Reason: Pain Score 4-10/10 Polyethylene Glycol (Miralax) 17 gm PO BID [facility] Last Admin: 02/04/19 11:13 Dose: Not Given Documented by: Prochlorperazine Edisylate (Compazine Iv) 10 mg IV Q6H PRN PRN PRN Reason: NAUSEA Senna/Docusate Sodium (Senokot-S, Jayashree-Colace) 0 tablet PO DAILY PRN PRN Reason: Constipation Last Admin: 02/03/19 21:50 Dose: 1 tablet Documented by: Simethicone (Mylicon) 80 mg PO PCHS PRN PRN Reason: Indigestion/stomach pain Sodium Chloride () 5 - 15 ml IV UD PRN PRN Reason: SALINE FLUSH Last Admin: 02/04/19 03:16 Dose: 10 ml Documented by: Zolpidem Tartrate (Ambien (Generic)) 5 mg PO QHS PRN PRN PRN Reason: Insomnia Discharge Diet: No Restrictions Discharge Activity: May not drive while taking narcotic pain medications., May Shower, May Take a Tub Bath May resume sexual activity in: 4-6 weeks Additional Activity Instructions:: Nothing in the vagina for 4-6 weeks. You may return to work/school in 6 weeks. Change Dressing in (Days):: 14 Remove Dressing in (days):: 14 Cleanse incision/area with: Soap & Water, Keep Dressing Clean & Dry Home Medications: Medications to take at Discharge Esomeprazole Magnesium [Nexium 24Hr] 20 mg PO X1 06/04/15 Levothyroxine [Synthroid] 137 mcg PO DAILY 06/04/15 Docosahexanoic Acid [ Dha] 200 mg PO DAILY 02/02/19 Docusate Sodium [Colace] 100 mg PO BID #30 cap 02/02/19 Ergocalciferol [Vitamin D] 2,000 unit PO DAILY 02/02/19 Naproxen [Naprosyn] 250 - 500 mg PO TID PRN PRN #30 tab 02/02/19 Oxycodone [Oxyir] 5 mg PO Q6H PRN PRN 3 Days #15 tab 02/02/19 Polyethylene Glycol 3350 [Miralax] 17 gm PO DAILY PRN #14 packet 02/02/19 Ferrous Gluconate 324 mg PO DAILY #30 tab 02/04/19 Following Prescrptions Were Given to Patient: Docusate Sodium [Colace] 100 mg PO BID #30 cap Transmission Status: Received by [facility]30 Ferrous Gluconate 324 mg PO DAILY #30 tab Transmission Status: Received by [facility] [place]30 Polyethylene Glycol 3350 [Miralax] 17 gm PO DAILY PRN #14 packet PRN Reason: Constipation Transmission Status: Received by [facility] [place] [facility]30 Naproxen [Naprosyn] 250 - 500 mg PO TID PRN PRN #30 tab PRN Reason: Mild-Mod Pain (1-10) Transmission Status: Received by [facility] [place]30 Oxycodone [Oxyir] 5 mg PO Q6H PRN PRN 3 Days #15 tab PRN Reason: Mod-Severe Pain (-1010) Transmission Status: Received by [facility] [place]30 Primary Care Physician: Anh Tsang DO [Primary Care Provider] - Please Follow Up With: Hoang Velasquez MD - [phone] When: Keep postop appointment as scheduled Medical Necessity - Tobacco Use Smoking Status: Former smoker Meaningful Use Info Meaningful Use Diagnoses (Choose all that apply): None applicable
== END 2019-02-04 15:10 | disposition home or self-care (01) | DRG 788 ==
PROVIDERS: Admitting Provider Obstetrics & Gynecology; Family Provider Internal Medicine; PCP Internal Medicine; Referring Provider Obstetrics & Gynecology; Visit Provider Obstetrics & Gynecology
PROC: 10D00Z1 Extraction of Products of Conception, Low, Open Approach (ICD-10-PCS; CPT 59514; principal; 2019-02-02 07:15)
DX: O34.211 Maternal care for low transverse scar from previous cesarean delivery (principal); O69.81X0 Labor and delivery complicated by cord around neck, without compression, not applicable or unspecified; O99.284 Endocrine, nutritional and metabolic diseases complicating childbirth; E03.9 Hypothyroidism, unspecified; O99.62 Diseases of the digestive system complicating childbirth; K21.9 Gastro-esophageal reflux disease without esophagitis; Z3A.39 39 weeks gestation of pregnancy; Z37.0 Single live birth; Z87.891 Personal history of nicotine dependence
CPT/HCPCS: 85025; 85027; 86850; 86900; 86901; 99218; 99251; J7120; A4216; G0378; G0463; J2405

== ENCOUNTER → 2019-03-30 11:14 | Outpatient (CLI) | payer OTHER, SELFPAY ==
[2019-02-02 05:50] VITALS: BMI 46.4
--- NOTE | 2019-03-30 11:16 | US_ITS ---
STUDY: THYROID ULTRASOUND REASON FOR EXAM: Female, 33 years old. THYROIDMEGALY TECHNIQUE: Ultrasound evaluation of the thyroid was performed with real-time and static bhatia-scale imaging. COMPARISON: None. FINDINGS: RIGHT LOBE: The right lobe of the thyroid gland measures 4.8 x 1.2 x 2.1 cm. There is a heterogeneous echotexture. There are no demonstrated solid, cystic or complex lesions. LEFT LOBE: The left lobe of the thyroid gland measures 4.3 x 1.2 x 1.8 cm. There is a heterogeneous echotexture. Solid subcentimeter nodule in the midpole region measuring 5 x 3 x 3 mm ISTHMUS: The isthmus measures 2 mm. Small solid nodule in the isthmus measuring 4.3 x 2.4 mm. The regional lymph nodes are normal. US/Thyroid IMPRESSION: Heterogeneous echotexture of the thyroid with no gross enlargement of the thyroid. Subcentimeter isthmus nodule and nodule in the left lobe. Electronically Signed: Bebo Muñoz DO at 10:13 EST Tel , Service support ,
--- NOTE | 2019-03-30 11:17 | US_ITS ---
STUDY: ABDOMINAL ULTRASOUND - RIGHT UPPER QUADRANT REASON FOR VISIT: Female, 33 years old RUQ PAIN TECHNIQUE: Ultrasound evaluation of the right upper quadrant was performed with real-time and static bhatia-scale imaging. TECHNICAL QUALITY: Limited. Examination limited due to obesity. COMPARISON: None. FINDINGS: Liver: The liver measures 16.1 cm. There is normal echogenicity of the liver. The bile ducts are within normal limits. There is hepatic color flow. The direction of portal flow is hepatopetal. There is no demonstrated mass lesion. Gallbladder: Normal distended gallbladder. The gallbladder wall measures 2.1 mm. There is a negative sonographic Mann''s sign. There is no pericholecystic fluid. There are no gallstones. Common Bile Duct (C.B.D.): The common bile duct measures 4.3 mm. Pancreas: Normal size of the head, body and tail of the pancreas. There is increased echogenicity of the pancreas. There is no demonstrated pancreatic mass or cyst. Right Kidney: Normal size of the right kidney. The right kidney measures 11.2 cm x 5.1 cm x 5.2 cm. Normal renal cortex. The right cortex measures 1.2 cm. There is a 1.4 cm x 0.9 cm x 1.4 cm right parapelvic cyst. There is no right hydronephrosis. US/Gallbladder IMPRESSION: 1.4 cm x 0.9 cm x 1.4 cm right parapelvic cyst. Electronically Signed: Eliud Hart, at 13:34 EST , Service support ,
== END ==
PROVIDERS: PCP Internal Medicine; Referring Provider Internal Medicine; Visit Provider Internal Medicine
DX: E01.0 Iodine-deficiency related diffuse (endemic) goiter (principal); R10.11 Right upper quadrant pain
CPT/HCPCS: 76536; 76705

== ENCOUNTER → 2020-04-01 16:30 | Outpatient (CLI) | payer OTHER, SELFPAY ==
[2019-05-01 14:42] VITALS: BMI 46.4
[2020-04-01 17:59] LABS: T4 Free Direct 1.42 ng/dL (0.76-1.46); Thyroid Stim Hormone (TSH) 0.03 uIU/mL (0.358-3.74)
== END ==
PROVIDERS: PCP Internal Medicine; Referring Provider Internal Medicine Endocrinology, Diabetes & Metabolism; Visit Provider Internal Medicine Endocrinology, Diabetes & Metabolism
DX: E03.8 Other specified hypothyroidism (principal); E06.3 Autoimmune thyroiditis
CPT/HCPCS: 36415; 84439; 84443

== ENCOUNTER → 2020-06-24 10:07 | Outpatient (CLI) | payer OTHER, SELFPAY ==
[2019-05-01 14:42] VITALS: BMI 46.4
[2020-06-24 12:53] LABS: T4 Free Direct 1.33 ng/dL (0.76-1.46); Thyroid Stim Hormone (TSH) 0.14 uIU/mL (0.358-3.74)
== END ==
PROVIDERS: PCP Internal Medicine; Referring Provider Internal Medicine Endocrinology, Diabetes & Metabolism; Visit Provider Internal Medicine Endocrinology, Diabetes & Metabolism
DX: E03.8 Other specified hypothyroidism (principal); E06.3 Autoimmune thyroiditis
CPT/HCPCS: 36415; 84439; 84443

== ENCOUNTER → 2020-11-04 15:45 | Outpatient (CLI) | payer OTHER, SELFPAY ==
[2020-11-04 17:50] LABS: T4 Free Direct 1.21 ng/dL (0.76-1.46)
== END ==
PROVIDERS: PCP Internal Medicine; Referring Provider Internal Medicine Endocrinology, Diabetes & Metabolism; Visit Provider Internal Medicine Endocrinology, Diabetes & Metabolism
DX: E03.8 Other specified hypothyroidism (principal); E06.3 Autoimmune thyroiditis
CPT/HCPCS: 36415; 84439; 84443

== ENCOUNTER → 2021-02-09 11:14 | Outpatient (CLI) | payer OTHER, SELFPAY ==
[2021-02-09 13:06] LABS: T4 Free Direct 1.19 ng/dL (0.76-1.46); Thyroid Stim Hormone (TSH) 2.97 uIU/mL (0.358-3.74)
== END ==
PROVIDERS: PCP Internal Medicine; Referring Provider Internal Medicine Endocrinology, Diabetes & Metabolism; Visit Provider Internal Medicine Endocrinology, Diabetes & Metabolism
DX: E03.8 Other specified hypothyroidism (principal); E06.3 Autoimmune thyroiditis
CPT/HCPCS: 36415; 84439; 84443

== ENCOUNTER 2021-04-07 15:18 | Outpatient (CLI) | payer OTHER, SELFPAY ==
[2021-04-07 16:40] LABS: Absolute Lymphocyte Count 2.07 X10^3/uL (0.83-4.51); Absolute Neutrophil Count 5.6 X10^3/uL (2.0-7.7); Basophil# 0.06 X10^3/uL; Basophil% 0.7 % (0-1); Eosinophil# 0.25 X10^3/uL; Eosinophils% 2.8 % (0-5); Hematocrit 39.3 % (37-47); Hemoglobin 13.2 g/dL (12.0-15.0); Lymphocyte # 2.07 X10^3/ul (0.83-4.51); Lymphocyte % 23.3 % (19-41); Mean Corp Hgb Conc 33.6 g/dL (32-36); Mean Corpuscular Hgb 28.9 pg (27.0-32.0); Mean Platelet Vol. 9.7 fl (6.2-12.0); Monocyte# 0.85 X10^3/uL; Monocyte% 9.6 % (0-10); NRBC Flagged by Analyzer 0 % (0-5); Neutrophil # 5.63 X10^3/uL (2.7-7.7); Neutrophil % 63.4 % (47-70); Platelet Count 323 K/mm3 (150-450); RBC Distribution Width SD 40.2 fl (35.1-43.9); Red Blood Count 4.57 M/mm3 (4.2-5.4); White Blood Count 8.9 K/mm3 (4.4-11.0)
[2021-04-07 17:02] LABS: AST(SGOT) 14 U/L (15-37); Alanine Aminotransfer ALT/SGPT 21 U/L (13-56); Albumin, Serum 3.8 g/dL (3.2-5.0); Alkaline Phosphatase 71 U/L (45-117); Anion Gap 3 (5-15); BUN 12 mg/dL (7-18); BUN/Creat Ratio 14.8 RATIO (10-20); Calcium,Total 9.2 mg/dL (8.5-10.1); Chloride 106 mmol/L (98-107); Cholesterol 128 mg/dL (200); Creatinine, Serum 0.81 mg/dL (0.55-1.02); EST Glomerular Filtration Rate 85 mL/min (>60); Est Glom Filt Rate - Afr Amer 103 mL/min (>60); Globulin 3.7 g/dL (2.2-4.2); Glucose 75 mg/dL (74-106); High Density Lipoprotein 56 mg/dL; Potassium 3.9 mmol/L (3.5-5.1); Protein, Total 7.5 g/dL (6.4-8.2); Sodium Level 138 mmol/L (136-145); Triglycerides 172 mg/dL; Very Low Density Lipoprotein 34 mg/dL (5-40)
== END 2021-04-07 23:59 | disposition home or self-care (01) ==
LOC: BIMLAB 15:19
PROVIDERS: PCP Internal Medicine; Referring Provider Internal Medicine; Visit Provider Internal Medicine
DX: Z00.00 Encounter for general adult medical examination without abnormal findings (principal)
CPT/HCPCS: 36415; 80053; 80061; 85025

== ENCOUNTER 2021-05-12 08:12 | Outpatient (CLI) | payer OTHER, SELFPAY ==
[2021-05-12 12:56] LABS: Vitamin D,25 Hydroxy 32.6 ng/mL
== END 2021-05-12 23:59 | disposition home or self-care (01) ==
LOC: BIMLAB 08:13
PROVIDERS: PCP Internal Medicine; Referring Provider Nurse Practitioner Family; Visit Provider Nurse Practitioner Family
DX: E56.9 Vitamin deficiency, unspecified (principal)
CPT/HCPCS: 36415; 82306

== ENCOUNTER → 2022-07-27 | Outpatient (CLI) | payer OTHER, SELFPAY ==
[2022-07-27 10:11] LABS: Absolute Lymphocyte Count 1.33 X10^3/uL (0.83-4.51); Absolute Neutrophil Count 4.6 X10^3/uL (2.0-7.7); Basophil# 0.05 X10^3/uL; Basophil% 0.7 % (0-1); Eosinophil# 0.17 X10^3/uL; Eosinophils% 2.5 % (0-5); Hematocrit 37.4 % (37-47); Hemoglobin 12.2 g/dL (12.0-15.0); Lymphocyte # 1.33 X10^3/ul (0.83-4.51); Lymphocyte % 19.7 % (19-41); Mean Corp Hgb Conc 32.6 g/dL (32-36); Mean Corpuscular Hgb 27.7 pg (27.0-32.0); Mean Corpuscular Volume 84.8 fL (81-99); Mean Platelet Vol. 9.1 fl (6.2-12.0); Monocyte# 0.64 X10^3/uL; Monocyte% 9.5 % (0-10); NRBC Flagged by Analyzer 0 % (0-5); Neutrophil # 4.55 X10^3/uL (2.7-7.7); Neutrophil % 67.3 % (47-70); Platelet Count 285 K/mm3 (150-450); RBC Distribution Width CV 13.2 % (11.6-14.6); RBC Distribution Width SD 40.7 fl (35.1-43.9); Red Blood Count 4.41 M/mm3 (4.2-5.4); White Blood Count 6.8 K/mm3 (4.4-11.0)
[2022-07-27 10:45] LABS: Vitamin B12 490 pg/mL (211-911); Vitamin D,25 Hydroxy 36.7 ng/mL
[2022-07-27 10:54] LABS: ALB/GLOB Ratio 0.9 RATIO (0.9-2.4); AST(SGOT) 14 U/L (15-37); Alanine Aminotransfer ALT/SGPT 21 U/L (13-56); Albumin, Serum 3.6 g/dL (3.2-5.0); Alkaline Phosphatase 86 U/L (45-117); Anion Gap 5 (5-15); BUN 10 mg/dL (7-18); BUN/Creat Ratio 13.9 RATIO (10-20); Calcium,Total 8.8 mg/dL (8.5-10.1); Chloride 103 mmol/L (98-107); Cholesterol 123 mg/dL (200); Creatinine, Serum 0.72 mg/dL (0.55-1.02); EST Glomerular Filtration Rate 97 mL/min (>60); Est Glom Filt Rate - Afr Amer 118 mL/min (>60); Globulin 3.8 g/dL (2.2-4.2); Glucose 95 mg/dL (74-106); High Density Lipoprotein 52 mg/dL; Potassium 4.1 mmol/L (3.5-5.1); Protein, Total 7.4 g/dL (6.4-8.2); Sodium Level 136 mmol/L (136-145); Triglycerides 140 mg/dL; Very Low Density Lipoprotein 28 mg/dL (5-40)
[2022-08-01 12:09] LABS: HPV APTIMA, High Risk Negative (Negative)
== END | disposition home or self-care (01) ==
PROVIDERS: Obstetrics & Gynecology; PCP Nurse Practitioner Family; Referring Provider Nurse Practitioner Family; Visit Provider Nurse Practitioner Family
DX: Z00.00 Encounter for general adult medical examination without abnormal findings (principal); Z12.4 Encounter for screening for malignant neoplasm of cervix; F32.A Depression, unspecified; F41.9 Anxiety disorder, unspecified; E03.8 Other specified hypothyroidism; E06.3 Autoimmune thyroiditis
CPT/HCPCS: 36415; 80053; 80061; 82306; 82607; 84439; 84443; 85025; 87624; 88175; G0145

== ENCOUNTER → 2023-03-25 | Outpatient (CLI) | payer OTHER, SELFPAY ==
--- OUTSIDE RECORDS SUMMARY | 2023-03-25 12:40 | XMS RPT_ITS | CCD ---
Author Name Unknown Address [address] [place] [address] Organization [facility] Care Team Providers Care Culture Room Worker Name Role Phone Anh Tsang Unavailable Hoang Baca Unavailable Imelda Herrera Unavailable Unavailable Lori Mcgrath Unavailable Unavailable Noa Saul Unavailable Unavailable Marleny Smallwood Unavailable Unavailable Unavailable Isabela Subramanian Unavailable Unavailable Anh Tsang DO Unavailable [phone] Trever Parmar Unavailable Keven HAWKINS, Dr. Hoang Jones Unavailable Ivette Lawson Unavailable Karie Roth LPN Unavailable Unavailable Lori Mcgrath Unavailable Unavailable Savita Alba LPN Unavailable Unavailable Noa Saul RN Unavailable Unavailable Marleny Smallwood CNP Unavailable Unavailable Unavailable Pcp, No Primary Care Provider UnavailSANAM Levine Attending Unavailable Medications Completed/Discontinued Medications Medication Drug Class(es) Dates Sig (Normalized) Sig (Original) [id number] 200 actuat albuterol 0.09 mg/actuat metered dose inhaler (5 sources) beta2-Adrenergic Agonist Start: 01-13-2021 take 2 puff(s) by inhalation three times daily as needed for cough ProAir HFA 108 (90 Base) MCG/ACT Inhalation Aerosol Solution 2 (two) Puff(s) tid prn cough for 0 days Quantity: 1 {Unspecified} Refills: 0 Ordered: 13-Jan-2021 Anh Tsang DO, DO, Kathleen Start : 13-Jan-2021 Active Comments: dispense one inhaler Problems Active Problems Problem Classification Problem Date Documented Date Episodic/Chronic Abdominal pain (1 source) Right upper quadrant pain; Translations: [RUQ pain] 01-13-2021 Episodic Administrative/socia l admission (2 sources) Patient encounter status; Translations: [School physical exam] 01-04-2015 Episodic Anxiety disorders (6 sources) Anxiety; Translations: [Anxiety] 11-15-2017 Chronic Asthma (9 sources) Acute exacerbation of asthma; Translations: [Asthma] 11-15-2017 Chronic Chronic obstructive pulmonary disease and bronchiectasis (2 sources) Bronchitis; Translations: [Bronchitis] 01-13-2021 Episodic Esophageal disorders (3 sources) Gastroesophageal reflux disease; Translations: [Gastroesophageal reflux disease, esophagitis presence not specified] 11-15-2017 Chronic Esophageal disorders (11 sources) Esophageal disorders Immunizations and screening for infectious disease (7 sources) Need for prophylactic vaccination and inoculation against influenza; Translations: [Encounter for screening for respiratory tuberculosis] 11-15-2017 Episodic Malaise and fatigue (9 sources) Fatigue; Translations: [Fatigue] Resolved: 08-05-2008 08-03-2016 Episodic Past or Other Problems Problem Classification Problem Date Documented Date Episodic/Chronic Asthma (3 sources) Asthma Inflammatory diseases of female pelvic organs (1 source) Cervicitis and endocervicitis; Translations: [Inflammatory disease of cervix uteri] Onset: 12-15-2010 12-15-2010 Episodic Other connective tissue disease (1 source) Tendinitis; Translations: [Enthesopathy, unspecified] Onset: 10-18-2009 10-18-2009 Episodic Other female genital disorders (1 source) Leukorrhea; Translations: [Other specified noninflammatory disorders of vagina] Onset: 12-15-2010 12-15-2010 Episodic Other female genital disorders (1 source) Vulval and/or perineal noninflammatory disorders; Translations: [Noninflammatory disorder of vulva and perineum, unspecified] Onset: 12-15-2010 12-15-2010 Episodic Other inflammatory condition of skin (1 source) Pruritus of skin; Translations: [Pruritus, unspecified] Onset: 12-15-2010 12-15-2010 Episodic Other lower respiratory disease (3 sources) Dyspnea on exertion; Translations: [SOB (shortness of breath) on exertion] Resolved: 08-05-2008 08-03-2016 Episodic Other screening for suspected conditions (not mental disorders or infectious disease) (4 sources) Other specified abnormal findings of blood chemistry; Translations: [Thyroid hormone tests abnormal] Resolved: 08-30-2017 08-03-2016 Episodic Tuberculosis (14 sources) Tuberculosis Unclassified (6 sources) Abnormal TSH (794.5) Unclassified (6 sources) Well Woman--benechos Resolved: 08-05-2008 08-03-2016 Unclassified (3 sources) Eustachian tube dysfunction (381.81) Unclassified (20 sources) Unspecified Diagnosis 09-11-2011 Unclassified (4 sources) Patient examined; Translations: [School physical exam] 11-15-2017 Unclassified (6 sources) SCHOOL PHYSICAL (V70.3) Unclassified (3 sources) De Quervain's tenosynovitis, right Unclassified (2 sources) Spleen enlarged Unclassified (1 source) Abortions/Miscarriage s; Translations: [Abortions/Miscarriag es] 01-13-2021 Results Test Name Value Interpretation Reference Range Facil ity Vital Signs Date Time Vital Sign Value Performing Clinician Facility 01-17-2022 14:03-0500 Body weight 128.55 kg Sanam Phelps APRN.CNM Work Phone: [facility] 01-17-2022 14:03-0500 Diastolic blood pressure 68 mm[Hg] Sanam Phelps APRN.CNM Work Phone: [facility] 01-17-2022 14:03-0500 Systolic blood pressure 120 mm[Hg] Sanam Phelps APRN.CNM Work Phone: [facility] 01-13-2021 08:35-0500 Body height 165.1 cm Karie Roth LPN [facility] Work Phone: Encounters Encounter Date Encounter Type Care Provider Facility Start: 01-17-2022 End: 01-17-2022 ambulatory SANAM PHELPS Facility:[facility] Start: 01-17-2022 End: 01-17-2022 Patient encounter procedure Sanam Phelps APRN.CNM Work Phone: OB/Gynecology Procedures Date Procedure Procedure Detail Performing Clinician Start: 01-07-2021 End: 01-07-2021 Urgent Care Visit Report Comments: See Note; NOTES: [facility] [address] [place] [address] [address] [place], [place] [address] OFFICE VISIT Date of Service: 01/07/21 MR#: [id number] Acct: [id number] Name: CHET SAUL Rep #: [id number] : 1985 Provider: MARVIN dennison Age/Sex: 35/F Location: [facility] [place] Status: Signed Intake Vital Signs 01/07/21 11:20 BP 112/70 Blood Pressure Location Lt brachial Position Sitting Respiration 14 Pulse 85 Pulse Source Monitor Temp 97.7 F L Temp Source Temporal Pulse Oximetry (%) 99 Oxygen Delivery Method room air Intake Visit Reasons: SHINGLES Chief Complaint: Hypothyroidism Allergies No Known Allergies Allergy (Verified 01/07/21 11:20) Medications ergocalciferol (vitamin D2) 2,000 unit PO DAILY 02/02/19 [History Confirmed 01/07/21] multivitamin 1 cap PO DAILY 05/01/19 [History Confirmed 01/07/21] levothyroxine 125 mcg tablet 125 mcg PO .Sat-Saturday #90 tab 11/06/20 [Rx Confirmed 01/07/21] prednisone 50 mg tablet 50 mg PO DAILY 5 Days #5 tab 01/07/21 [Rx Confirmed 01/07/21] valacyclovir 1 gram tablet 1,000 mg PO TID 7 Days #21 tab 01/07/21 [Rx Confirmed 01/07/21] [facility] Medical History Heartburn 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 Patient is concerned for shingles. She states she had chickenpox as a kid. Denies any recent illness or ill contact. No increased stress that she is aware of. She states initially she noted significant discomfort and itching to the area and then the following day when she awakened she noted a rash. She states it is intensely painful. She denies any injury, fall or direct trauma to the area. Denies any difficulty speaking, swallowing or breathing. No fever chills or other constitutional complaints associated with it. Denies any change in soaps, lotions, medications or detergents or other exposures. No other illnesses or ill contacts. No travel. ROS Const Constitutional: Positive for other (Denies other s/sx r/t constitutional, HEENT, integument, cardiovascular) Resp Respiratory: Positive for other (Pulmonary, GI, , musculoskeletal, endocrine, neurologic or psychologic.) Aller/Imm Allergy/Immunologic: Positive for other (Nurses notes are reviewed, I agree other than how amended by my note) Exam Const General: cooperative, comfortable, no acute distress, well developed and well hydrated Nutritional Appearance: well nourished Orientation: alert, awake and oriented x3 HENMT Head: normocephalic and atraumatic Ears: external ears normal, TM's normal bilaterally and EAC's normal Nose: external nose normal Face and sinus: sinuses nontender Mouth: oral mucosae normal, oropharynx normal and moist mucous membranes Throat: posterior oropharynx normal, tonsils normal and uvula midline Eyes Conjunctivae: conjunctivae normal Sclera: sclerae normal Pupils: PERRL EOM: EOM intact bilaterally Neck Neck: normal visual inspection (Erythematous rash over right side anterior neck concerning for zoster. ), full ROM, no lymphadenopathy, no meningeal signs, trachea midline, supple, no anterior neck swelling, nontender, no tracheal deviation and No submandibular swelling Thyroid: nontender Chest Chest palpation inspection: normal inspection of the chest Resp Effort Inspection: normal respiratory effort, able to speak in complete sentences and no use of accessory muscles Auscultation: Bilateral: Clear to Auscultation Cardio Rate: regular rate Rhythm: regular rhythm Heart Sounds: S1 normal, S2 normal and no murmurs Musc Musculoskeletal: No joint tenderness, joint redness, joint warmth, decreased range of motion or muscle weakness Cervical Spine: normal cervical lordosis Thoracic/Lumbar Spine: thoracic and lumbar spine normal to inspection Skin General: no rashes or lesions noted (Suspect zoster rash right anterior neck. No secondary infection.) Neuro General: patient alert, patient awake, patient oriented x3, no meningeal signs, no focal motor deficits and CN's II-XI intact bilaterally Sensory Exam: no sensory deficits noted Extrem General: normal to inspection, full ROM, capillary refill normal and no clubbing, cyanosis or edema Psych Affect: normal affect Attitude: cooperative Coding Level of Care Code Off vis,est,level 4 Assessment and Plan Plan Details Other Medications: New: valacyclovir 1,000 mg PO TID 7 days 21 tabs 0RF prednisone 50 mg PO DAILY 5 days 5 tabs 0RF Additional Comments: Nontoxic-appearing 35-year-old female presents to the now clinic for evaluation of the above complaint. As this rash does not appear to cross the midline I do suspect it shingles dermatitis. Patient will be treated with valacyclovir and prednisone. Advised on close outpatient follow-up with her doctor as needed, supportive measures, Tylenol Motrin as needed for pain. Signs and symptoms for which to return as well as those for which to seek ER care are discussed. Her questions are answered and she verbalizes understanding and agreement with plan. 01/07/21 1312 <Electronically signed by Kristine REYNA> Date Kristine REYNA Cosigner Signature: Date (if applicable) CC: Anh Tsang DO Work Phone: Start: 07-29-2020 End: 08-01-2020 Endocrinology Visit Report Comments: See Note; NOTES: [facility] [address] [place] [address] OFFICE VISIT Date of Service: 07/29/20 MR#: [id number] Acct: [id number] Name: CHET SAUL Rep #: [id number] : 1985 Provider: Nitesh Moore Age/Sex: 34/F Location: [facility] [place] Status: Signed Intake Vital Signs 07/29/20 14:37 07/29/20 14:40 Height 5 ft 6 in Weight: 253 lb 8 oz BMI 40.8 46.4 BP 120/80 Blood Pressure Location Lt brachial Position Sitting Respiration 16 Pulse 89 Pulse Source Monitor Temp 96.5 F L Temp Source Temporal Pulse Oximetry (%) 98 Oxygen Delivery Method room air Intake Visit Reasons: 1 Y FU Chief Complaint: Hypothyroidism 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 She is taking 125 mcg levothyroxine daily. No new health history. She is due for labs. Exam Const General: cooperative, healthy appearing, comfortable, no acute distress, well developed and not cushingoid Nutritional Appearance: well nourished Orientation: alert, awake and oriented x3 HENMT Head: normal to inspection Ears: hearing grossly normal bilaterally Nose: external nose normal Mouth: oral mucosae normal Eyes General: appearance normal, both eyes and all related structures Alignment and Position: alignment normal Periorbital: periorbital findings normal Eyelids: eyelids normal Conjunctivae: conjunctivae normal Neck Neck: normal visual inspection Neck mass: No Thyroid: thyroid normal Carotids: no bruits Lymphatic: no lymphadenopathy noted Chest Chest palpation inspection: normal inspection of the chest Resp Effort Inspection: normal respiratory effort, able to speak in complete sentences, symmetric chest movement, no audible wheezes and no cough Auscultation: Bilateral: Clear to Auscultation Cardio Rate: regular rate Rhythm: regular rhythm Pulses: posterior tibial pulses present GI Inspection: normal to inspection Auscultation: normal bowel sounds Palpation: soft and no hepatosplenomegaly Skin General: no rashes or lesions noted Neuro General: patient alert, patient awake and patient oriented x3 Cranial Nerves: CN's II-XI intact bilaterally Cognition: normal cognition Speech: speech normal Gait: normal gait Motor: muscle tone normal throughout Extrem General: no edema Psych Appearance: grossly normal Mental Status: mental status grossly normal Mood: congruent mood Affect: normal affect Speech and Movement: speech and movement normal Attitude: cooperative Thought Process: normal Thought Content: normal Judgment: judgment good Coding Level of Care Code Off vis,est,level 3 Diagnoses 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 Kit Trejo MD: Take levothyroxine on an empty stomach with water at least four hours after eating. Then wait 30-60 minutes before consuming any other food or beverage, especially coffee. Separate levothyroxine from vitamins by at least 4 hours. Stop taking any biotin supplement 4 days prior to having labs drawn. Check labs. TSH is low, reduce to 1/2 tab on Sundays. I have spent [21] minutes today reviewing labs, records and history. Time includes coordinating care, interpretation of tests, discussion with patient's other health care providers via telephone. This also includes time I spent with the patient for exam, treatment plan and education as well as documenting clinical information. Plan Details Other Medications: Changed: From: levothyroxine 125 mcg PO DAILY 30 tabs 0RF To: levothyroxine 125 mcg PO .1 qd, 1/2 on Sundays 90 tabs 3RF 08/01/20 0849 <Electronically signed by Kit Trejo MD> Date Kit Trejo MD Cosigner Signature: Date (if applicable) CC: Dr. Anh Tsang, DO Anh Tsang DO Work Phone: Start: 05-04-2019 End: 05-04-2019 Endocrinology Visit Report Comments: See Note; NOTES: [facility] [address] [place] [address] OFFICE VISIT Date of Service: 05/01/19 MR#: [id number] Acct: [id number] Name: CHET SAUL Rep #: [id number] : 1985 Provider: Kit Trejo MD Age/Sex: 33/F Location: [facility] [place] Status: Signed Intake Vital Signs05/01/19 Height 5 ft 5 in 05/01/19 Weight: 265 lb 05/01/19 BMI 44.1 05/01/19 BP 112/78 05/01/19 Blood Pressure Location Rt radial 05/01/19 Position Sitting 05/01/19 Respiration 16 05/01/19 Pulse 84 05/01/19 Pulse Oximetry (%) 98 05/01/19 Oxygen Delivery Method room air 03/30/19 BMI 46.4 Intake Visit Reasons: Hypothyroidism Chief Complaint: Hypothyroidism Is patient in pain?: No Allergies No Known Allergies Allergy (Verified 05/01/19 14:40) Medications Ergocalciferol [Vitamin D] 2,000 unit PO DAILY 02/02/19 [History Confirmed 05/01/19] levothyroxine 150 mcg tablet 150 mcg PO DAILY #90 tab 05/01/19 [Rx Confirmed 05/01/19] multivitamin 1 cap PO DAILY 05/01/19 [History] [facility] Medical History (Updated 05/04/19 @ 09:[address] 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 Cheryle Guzman MD) History of (Acute) Family History (Updated 05/04/19 @ 09:[address] Kit Trejo MD) Other Diabetes Social History (Updated 05/04/19 @ 09:[address] Kit Trejo MD) Smoking Status: Former smoker alcohol intake: never HPI HPI Chief Complaint: Hypothyroidism Details: CHET SAUL, is a 33 F who presents to the office today for evaluation and management of hypothyroidism. She was diagnosed about 10 years ago. She was taking 125 mcg daily for years until it was increased to 137 mcg during her . She is concerned about difficulty losing weight. She also reports a feeling of pressure in her throat and the feeling that sometimes food is getting stuck. ROS Const Constitutional: No excessive sweating, fatigue, fever(s), headache(s), malaise, night sweats, weakness, weight change or abnormal sleep pattern Eyes Eyes: No blurry vision ENT ENT: No tinnitus, dizziness/vertigo, headache(s), difficulty swallowing, hoarseness, neck pain or sore throat Resp Respiratory: No cough or shortness of breath Cardio Cardiology: No chest pain at rest, chest pain with exertion, excessive sweating, shortness of breath, dyspnea on exertion, generalized swelling, irregular heart rhythm, lightheadedness, fast heart rate or palpitations Gastro GI: Positive for nausea/dyspepsia; no abdominal pain, change in bowel habits, constipation, diarrhea, heartburn or difficulty swallowing Musc Musculoskeletal: No joint pain, back pain, joint swelling, muscle cramps, muscle weakness, neck pain, numbness or tingling Skin Skin: No lesions or rash Neuro Neurology: No abnormal speech, behavioral changes, confusion, unsteady gait/balance, dizziness, weakness, headache(s), memory loss, numbness, tingling or fainting Psych Psychiatric: No abnormal sleep pattern, No behavioral changes, No confusion, No depression, No difficulty concentrating, No memory loss, No Thoughts of harming yourself/Others Endo Endocrine: No cold intolerance, excessive sweating, fatigue, flushing, heat intolerance, increased thirst/drinking or increased urination Aller/Imm Allergy/Immunologic: No seasonal allergy symptoms Kenji/Lymp Hematologic/Lymphatic: No easy bleeding, easy bruising or enlarged lymph nodes Exam Const General: cooperative, healthy appearing, comfortable, no acute distress Nutritional Appearance: well nourished, obese Orientation: alert, awake, oriented x3 HENMT Head: normocephalic, atraumatic Ears: hearing grossly normal bilaterally, external ears normal Nose: external nose normal Face and sinus: normal facial exam Mouth: oral mucosae normal Eyes General: appearance normal, both eyes and all related structures Pupils: PERRL EOM: EOM intact bilaterally Neck Neck: normal visual inspection, no lymphadenopathy Neck mass: No Thyroid: thyroid normal, diffusely enlarged Carotids: no bruits Chest Chest palpation AND inspection: normal inspection of the chest Resp Effort AND Inspection: normal respiratory effort, able to speak in complete sentences Auscultation: Bilateral: Clear to Auscultation Cardio Rate: regular rate Rhythm: regular rhythm Heart Sounds: S1 normal, S2 normal Pulses: posterior tibial pulses present, dorsalis pedis pulses present GI Palpation: soft, no hepatosplenomegaly Musc Musculoskeletal: No muscle weakness Skin General: no erythema Lesions: other (no lipohypertophy) Neuro General: gait normal, CN's II-XI intact bilaterally Cognition: normal cognition Speech: speech normal Gait: normal gait Extrem General: no edema Psych Appearance: well kempt Mood: congruent mood Affect: normal affect Speech and Movement: speech and movement normal Attitude: cooperative Thought Process: normal Thought Content: normal Assessment AND Plan 1. 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 Then wait 30-60 minutes before consuming any other food or beverage, especially coffee. Separate levothyroxine from vitamins by at least 4 hours. Stop taking any biotin supplement 4 days prior to having labs drawn. Orders Orders: 2. Heartburn R12 Plan It is likely that her throat symptoms are related to GERD. I asked her to try a trial of PPI, but she is resistant to taking medication. I reviewed the lifestyle things she can do: avoid chocolate, coffee, alcohol, raise head of bed. 3. Class 3 severe obesity due to excess calories without serious comorbidity with body mass index (BMI) of 40.0 to 44.9 in adult E66.01; Z68.41 Plan Nutritional counseling provided, avoid flour, sugar, and artificial sweeteners. I suggested reading Bright Line Eating by Shirley Duncan for information regarding food choices with low glycemic index and for weight loss. 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 E03.8; E06.3 Heartburn R12 Class 3 severe obesity due to excess calories without serious comorbidity with body mass index (BMI) of 40.0 to 44.9 in adult E66.01; Z68.41 Obesity type: due to excess calories Obesity classification: adult class 3 (BMI >= 40) Serious obesity comorbidity presence: without serious comorbidity Body mass index: BMI 40.0-44.9 05/04/19 0953 <Electronically signed by Kit Trejo MD> Date Kit Trejo MD Cosigner Signature: Date (if applicable) CC: Anh Pleitez DO Work Phone: Start: 03-30-2019 End: 03-30-2019 Gallbladder Comments: See Note; NOTES: [facility] Imaging Services [address] [place] [id number] Gallbladder MR#: [id number] Acct: [id number] Name: CHET SAUL Rep #: [id number] : 1985 F 33 From: Eliud Hart MD PCP: Anh Tsang DO Status: REG CLI Study: Gallbladder Date of Exam: 03/30/19 Exam# [id number] Ordering Dr: Anh Tsang DO STUDY: ABDOMINAL ULTRASOUND - RIGHT UPPER QUADRANT REASON FOR VISIT: Female, 33 years old RUQ PAIN TECHNIQUE: Ultrasound evaluation of the right upper quadrant was performed with real-time and static bhatia-scale imaging. TECHNICAL QUALITY: Limited. Examination limited due to obesity. COMPARISON: None. FINDINGS: Liver: The liver measures 16.1 cm. There is normal echogenicity of the liver. The bile ducts are within normal limits. There is hepatic color flow. The direction of portal flow is hepatopetal. There is no demonstrated mass lesion. Gallbladder: Normal distended gallbladder. The gallbladder wall measures 2.1 mm. There is a negative sonographic Mann''s sign. There is no pericholecystic fluid. There are no gallstones. Common Bile Duct (C.B.D.): The common bile duct measures 4.3 mm. Pancreas: Normal size of the head, body and tail of the pancreas. There is increased echogenicity of the pancreas. There is no demonstrated pancreatic mass or cyst. Right Kidney: Normal size of the right kidney. The right kidney measures 11.2 cm x 5.1 cm x 5.2 cm. Normal renal cortex. The right cortex measures 1.2 cm. There is a 1.4 cm x 0.9 cm x 1.4 cm right parapelvic cyst. There is no right hydronephrosis. US/Gallbladder IMPRESSION: 1.4 cm x 0.9 cm x 1.4 cm right parapelvic cyst. Electronically Signed: Eliud Hart, at 13:34 EST , Service support , CC: Anh Tsang DO [employer]: Signed Anh Tsang DO Work Phone: Start: 03-30-2019 End: 03-31-2019 Thyroid Comments: See Note; NOTES: [facility] Imaging Services [address] [place], [place] [id number] Thyroid MR#: [id number] Acct: [id number] Name: CHET SAUL Rep #: [id number] : 1985 F 33 From: Bebo Muñoz DO PCP: Anh Tsang DO Status: REG CLI Study: Thyroid Date of Exam: 03/30/19 Exam# [id number] Ordering Dr: Anh Tsang DO STUDY: THYROID ULTRASOUND REASON FOR EXAM: Female, 33 years old. THYROIDMEGALY TECHNIQUE: Ultrasound evaluation of the thyroid was performed with real-time and static bhatia-scale imaging. COMPARISON: None. FINDINGS: RIGHT LOBE: The right lobe of the thyroid gland measures 4.8 x 1.2 x 2.1 cm. There is a heterogeneous echotexture. There are no demonstrated solid, cystic or complex lesions. LEFT LOBE: The left lobe of the thyroid gland measures 4.3 x 1.2 x 1.8 cm. There is a heterogeneous echotexture. Solid subcentimeter nodule in the midpole region measuring 5 x 3 x 3 mm ISTHMUS: The isthmus measures 2 mm. Small solid nodule in the isthmus measuring 4.3 x 2.4 mm. The regional lymph nodes are normal. US/Thyroid IMPRESSION: Heterogeneous echotexture of the thyroid with no gross enlargement of the thyroid. Subcentimeter isthmus nodule and nodule in the left lobe. Electronically Signed: Bebo Muñoz DO at 10:13 EST Tel , Service support , CC: Anh Tsang DO [employer]sembl[employer] Spider: Signed Anh Tsang DO Work Phone: Start: 01-20-2019 End: 01-20-2019 History and Physical Exam Comments: See Note; NOTES: [facility] Medical Records Department [address] [facility] [place] [address] History and Physical 01/19/19 0835 MR#: [id number] Acct: [id number] Name: CHET SAUL Rep #: [id number] : 1985 33 From: Cheryle Guzman MD PCP: Anh Tsang DO Status: PRE IN Y Location: History and Physical Date of Admission: 02/02/19 OB HISTORY AND PHYSICAL EXAMINATION History of this : 33 yo female Ab2 with EDC 02/07/2019 by 5 weeks 6 days Ultrasound, presents to Labor and Delivery.for planned repeat C section. care remarkable for - 1.) H/O C section delivery. score poor. 34 % likely success predicted Plans repeat C/S 2.) DECLINES BTO 3.) Declines MSAFP and CF testing. Declines MaterniT testing as well. 4.) Hypothyroidism - takes Synthroid 5.) Prior ectopic, treated with Methotrexate 6.) Former smoker, quit PAST HISTORY: Breast/Ovarian/Colon Cancers - Denies Infections - Chicken pox Illnesses - hypothyroidism Accidents - no injuries of consequence History of Abnormal PAPS - NO Hospitalizations - see surgery and SHORT STAY OBSERVATION SURGICAL HISTORY: 1. T and A, as child 2. [place] teeth removed at age 17 3. 07/04/2015 Cheryle Guzman M.D. 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 Illicit Drug Use - denies use of street drugs Sexual Activity - Residence - lives with Place of - [place], [place] Hours Worked - 30 Spouse-Sig Other Name - Sahil Saul Spouse-Sig Other Occupation - [employer] Spouse-Sig Other Phone No - [phone] Children Name(s) - Neeraj Control - Allergies: No Known Drug Allergies Medications: During - Zantac 150 mg tablet; Synthroid 137 mcg tablet; Prometrium 200 mg capsule; 28 mg iron-800 mcg tablet; aspirin 81 mg tablet,delayed release Review of Systems: Non-contributory PHYSICAL EXAMINATION General Appearance: 33 yo female in no acute distress Vital Signs: AF, VSS Lungs: Regular rate and rhythm Breasts: deferred Abdomen: gravid Cervix: deferred Presentation: cephalic Size: AGA Movement: present Heart: present Impression /Plan: Intrauterine . 39 wk EGA Planned repeat C section. Declines BTO. Admit for delivery as planned. 01/20/19 1246 <Electronically signed by Cheryle Guzman MD> Date Cheryle Guzman MD Cosigner Signature: Date (if applicable) CC: Cheryle Guzman MD; Anh Tsang DO Signed Anh Tsang DO Work Phone: Start: 04-08-2018 End: 04-08-2018 OT D/C of Non Returning Pt Comments: See Note; NOTES: [facility] Occupational Therapy [facility] [address] [place] [address] [address] [place] [address] / REHABILITATION SERVICES DISCHARGE SUMMARY MR#: [id number] Acct: [id number] Name: CHET SAUL Rep #: [id number] : 1985 32 From: Liz GRANDA/Claudine, CHT Referring Dr.: Olivia Hanks MD Status: REG RCR Eval Date: Discharge Date: HP - Discharge Summary - Patient Information CHET SAUL was seen in my office for initial evaluation on 12/23/17. The following Plan of Care was established for this patient: Initial Frequency: 2x /Week Initial Duration: 3 Weeks Plan: cont w/ prior POC - Anticipated Interventions Anticipated Interventions: A/AAROM/PROM, Triggerpoint Release, Modalities, Joint Protection/Energy Conservation, Ergonomic Education, ADL Training, Home Program This patient was last seen in our office 01/06/18. Pertinent comments regarding their Occupational therapy will appear below: pt was seen for 4 OT visits. pt was progressing well with her recovery. pt did cancel her last apt due to being ill and no further apts were rescheduled as pt felt she was doing well with her thumb. Pt is D/C at this time due to timelapse in therapy services. At this point I will be discontinuing this patient from occupational therapy. I would be happy to see this patient again in the future if found appropriate by the physician. Thank you! Liz Blanco OTR/Claudine, CHT <Electronically signed by Liz Blanco OTR/Claudine CHT> 04/08/18 1331 CC: Olivia Hanks MD; Anh Tsang DO MK Signed Anh Tsang DO Work Phone: Start: 01-08-2018 End: 01-08-2018 Discharge Instruction Comments: See Note; NOTES: [facility] Medical Records Department [address] [place] [address] Discharge Instruction 01/08/18208 MR#: [id number] Acct: [id number] Name: CHET SAUL Usman Rep #: [id number] : 1985 32 From: Ariel Mayberry MD [...] your Primary Care Provider. Call [facility] ([phone]) or report to the closest Emergency Room. Call 911 if necessary. 01/08/18208 <Electronically signed by Ariel Mayberry MD> Date Ariel Mayberry MD Cosigner Signature (If Indicated): Date CC: Anh Pleitez Start: 01-08-2018 End: 01-08-2018 Emergency Department Summary Comments: See Note; NOTES: [facility] Medical Records Department [address] [place] [address] Emergency Department Summary 01/08/18 0142 MR#: [id number] Acct: [id number] Name: CHET SAUL Rep #: [id number] : 1985 32 From: Ariel Mayberry MD [...] due to body habitus Alert Test Results: Haskell screen is positive. Emergency Department Course and Treatment: Haskell screen was positive. Ukfvg-ok-hysi bedside ultrasound showed no free fluid to suggest splenic rupture. She was advised on supportive care. She will follow-up with her primary care physician. She understands return for new or worsening symptoms and was discharged. Treatment Plan: [] Disposition: Discharge Impression: Mononucleosis This note was generated with UpTapation software. It may contain incorrect words, spelling, and punctuation that were not noted in review of the chart prior to signing ED Disposition - Plan for ED Patient: Chief Complaint: Fever Referrals: Anh Tsang, [Primary Care Provider] - What to do if you have Problems For any increased pain, shortness of breath, bleeding, nausea or vomiting, chest pain, or any unexpected problems, contact your Primary Care Provider. Call [facility] ([phone]) or report to the closest Emergency Room. Call 911 if necessary. 01/08/18 0209 <Electronically signed by Ariel Mayberry MD> Date Ariel Mayberry MD Cosigner Signature (If Indicated): Date CC: Anh Pleitez Start: 01-07-2018 End: 01-07-2018 Emergency Department Summary Comments: See Note; NOTES: [facility] Medical Records Department [address] [place] [address] Emergency Department Summary 01/06/18 2150 MR#: [id number] Acct: [id number] Name: CHET SAUL Usman Rep #: [id number] : 1985 32 From: Maryse Vazquez MD [...] 4 days of potassium replacement. She will follow-up with her primary care physician in 1 week. Treatment Plan: [] Disposition: Discharge Impression: 1. Viral syndrome, improving 2. Mild splenomegaly 3. Hypokalemia This note was generated with Mineful dictation software. It may contain incorrect words, spelling, and punctuation that were not noted in review of the chart prior to signing ED Disposition - Plan for ED Patient: Chief Complaint: Abd Pain Referrals: Anh Tsang, DO [Primary Care Provider] - What to do if you have Problems For any increased pain, shortness of breath, bleeding, nausea or vomiting, chest pain, or any unexpected problems, contact your Primary Care Provider. Call [facility] ([phone]) or report to the closest Emergency Room. Call 911 if necessary. 01/07/18 0027 <Electronically signed by Maryse Vazquez MD> Date Maryse Vazquez MD Cosigner Signature (If Indicated): Date CC: Anh Trinh DO Anh Tsang Start: 01-07-2018 End: 01-07-2018 Discharge Instruction Comments: See Note; NOTES: [facility] Medical Records Department [address] [place] [address] Discharge Instruction 01/07/18 0009 MR#: [id number] Acct: [id number] Name: JOSIANE SAULCLAYTON Mary Rep #: [id number] : 1985 32 From: Maryse Vazquez MD [...] your Primary Care Provider. Call [facility] ([phone]) or report to the closest Emergency Room. Call 911 if necessary. 01/07/18 0010 <Electronically signed by Maryse Vazquez MD> Date Maryse Vazquez MD Cosigner Signature (If Indicated): Date CC: Anh Trinh DO Anh Mannon Start: 01-06-2018 End: 01-06-2018 Abdomen/Pelvis without Cont Comments: See Note; NOTES: [facility] Imaging Services [address] [place] [address] Abdomen/Pelvis without Cont MR#: [id number] Acct: [id number] Name: CHET SAUL Rep #: [id number] : 1985 F 32 From: Gali Parks MD PCP: Anh Tsang DO Status: REG ER Study: Abdomen/Pelvis without Cont Date of Exam: 01/06/18 Exam# [id number] Ordering Dr: Maryse Vazquez MD STUDY: CT [...] CC: Maryse Vazquez MD; Anh Tsang DO [employer]sembl[employer] Spider: Signed Anh Trinh Start: 01-06-2018 End: 01-06-2018 Urgent Care Visit Report Comments: See Note; NOTES: [facility] [address] [place] [address] OFFICE VISIT Date of Service: 01/06/18 MR#: [id number] Acct: [id number] Name: CHET SAUL Rep #: [id number] : 1985 Provider: Jassi REYNA Age/Sex: 32/F Location: [facility] [place] Status: Signed Intake Vital Signs01/06/18 Height 5 ft 5 in Intake Visit Reasons: PAIN IN LEFT SIDE Chief Complaint: 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 She is unsure what her T-max has been over the last several days, [...] the above. This note was generated with UpTapation software. It may contain incorrect words, spelling, and punctuation that were not noted in checking the note before signing. Orders Orders: Coding Level of Care Code Off vis,new,level 4 Diagnoses Costochondritis M94.0 01/06/18 1344 <Electronically signed by Jassi REYNA> Date Jassi REYNA Cosigner Signature: Date (if applicable) CC: Anh Tsang Start: 01-06-2018 End: 01-06-2018 Chest PA and Lateral Comments: See Note; NOTES: [facility] Imaging Services [address] [place] [address] Chest PA and Lateral MR#: [id number] Acct: [id number] Name: CHET SAUL Rep #: [id number] : 1985 F 32 From: Eliud Hart MD PCP: Anh Tsang DO Status: REG CLI Study: Chest PA and Lateral Date of Exam: 01/06/18 Exam# [id number] Ordering Dr: Jassi Paniagua STUDY: X-RAY CHEST [...] Eliud Hart MD at 13:05 EST Tel [phone], Service support , CC: Anh Tsang DO; Jassi REYNA [employer] Spider: Signed Marleny Smallwood Work Phone: Start: 12-24-2017 End: 12-24-2017 OT General Evaluation Comments: See Note; NOTES: [facility] Occupational Therapy [facility] [address] [place] [address] Fax REHABILITATION SERVICES INITIAL EVALUATION MR#: [id number] Acct: [id number] Name: CHET SAUL Rep #: [id number] : 1985 32 From: Liz LAN CHT Referring Dr.: Olivia Hanks MD Status: REG [facility] Insurance: [facility] Date: SELF PAY INSURANCE Patient's Visit Information CHET SAUL is a 32 year old F, referred to Occupational Therapy by Olivia Hanks MD, with a diagnosis of Pain in R thumb. Date of Evaluation: 12/23/17 Occupational Therapist: KALEE Emanuel/Claudine, CHT - Subjective Subjective: Patient arrives and [...] scale for touching 5th digit - Strength Progressive Die Maker: 99# in R and 95 # in [...] to be FAXED BACK to us at [phone] for Medicare purposes. Please let me know if there are questions or concerns regarding this plan of care. Physician Signature: _Date: <Electronically signed by Liz LAN CHT> 12/24/17 1237 CC: Olivia Hanks MD; Anh Tsang DO MK Signed For Medicare only, by signing this I certify the plan of care. Physicians Signature Date Anh Tsang Start: 07-26-2017 End: 07-26-2017 Discharge Instruction Comments: See Note; NOTES: [facility] Medical Records Department [address] [place] [address] Discharge Instruction 07/25/17 1842 MR#: [id number] Acct: [id number] Name: KGCHET Usman Rep #: [id number] : 1985 31 From: Alex Winn MD [...] your Primary Care Provider. Call [facility] ([phone]) or report to the closest Emergency Room. Call 911 if necessary. 07/26/17 0044 <Electronically signed by Alex Winn MD> Date Alex Winn MD Cosigner Signature (If Indicated): Date CC: Anh Pleitez Start: 07-26-2017 End: 07-26-2017 Emergency Department Summary Comments: See Note; NOTES: [facility] Medical Records Department [address] [place] [address] Emergency Department Summary 07/25/17 1840 MR#: [id number] Acct: [id number] Name: CHET SAUL Rep #: [id number] : 1985 31 From: Alex Winn MD [...] using Dermabond This note was generated with Mineful dictation software. It may contain incorrect words, spelling, and punctuation that were not noted in review of the chart prior to signing ED Disposition - Plan for ED Patient: Chief Complaint: Laceration Referrals: Anh Tsang, [Primary Care Provider] - What to do if you have Problems For any increased pain, shortness of breath, bleeding, nausea or vomiting, chest pain, or any unexpected problems, contact your Primary Care Provider. Call [facility] ([phone]) or report to the closest Emergency Room. Call 911 if necessary. 07/26/17 0044 <Electronically signed by Alex Winn MD> Date Alex Winn MD Cosigner Signature (If Indicated): Date CC: Anh Tsang DO Anh Tsang Start: 07-04-2015 End: 07-04-2015 Section - 1 Imelda Herrera H/O: surgery Tonsillectomy Karie Chow PN Plan of Treatment Date Care Activity Detail Author Start: 02-11-2021 DEPRESSION ASSESSMENT DEPRESSION ASSESSMENT [facility] Start: 01-13-2021 Procedure Education Eprescribed prescriptions (G8553) [facility] Work Phone: Start: 01-13-2021 Provider Instructions for Treatment Continue Current Prescription(s) [facility] Work Phone: Start: 03-12-2019 Assay of thyroid stimulating hormone tsh TSH (80269) [facility] Work Phone: Start: 03-12-2019 Assay of free thyroxine T4, FREE (THYROXINE) (93786) [facility]; [facility] Work Phone: Start: 03-12-2019 Assay of triiodothyronine t3 free T3, FREE (TRIDOTHYRONINE) (68780) [facility] Work Phone: Start: 03-11-2019 Procedure Education Eprescribed prescriptions (G8553) [facility] Work Phone: Start: 01-17-2018 Procedure Education Eprescribed prescriptions (G8553) [facility] Work Phone: Start: 01-17-2018 Provider Instructions for Treatment Follow up if no improvement or if symptoms worsen [facility] Work Phone: Start: 01-17-2018 Hepatic function panel HEPATIC FUNCTION PANEL (16050) [facility] Work Phone: Start: 01-17-2018 Thyrotropin Qn TSH (THYROID STIMULATING HORMONE) (87200) [facility] Work Phone: Start: 01-17-2018 Blood count complete auto&auto difrntl wbc CBC, Platelets & Auto Diff (35536) [facility] Work Phone: Start: 01-17-2018 Comprehensive metabolic panel Metabolic Panel, Comprehensive (28232) [facility] Work Phone: Start: 08-30-2017 Assay of thyroid stimulating hormone tsh TSH (39608) [facility] Work Phone: Start: 08-30-2017 Thyrotropin Qn TSH (21623) [facility] Work Phone: Start: 08-30-2017 Assay of free thyroxine T4, FREE (THYROXINE) (94485) [facility]; [facility] Work Phone: Start: 08-30-2017 T4 free mass conc T4, FREE (THYROXINE) (27572) [facility] Work Phone: Start: 08-30-2017 Assay of triiodothyronine t3 free T3, FREE (TRIDOTHYRONINE) (86590) [facility] Work Phone: Start: 08-30-2017 T3 free mass conc T3, FREE (TRIDOTHYRONINE) (13597) [facility] Work Phone: Start: 08-30-2017 Provider Instructions for Treatment GERD Education [facility]; [facility] Work Phone: Start: 08-10-2016 Provider Instructions for Treatment [facility] Work Phone: Start: 09-29-2015 HPV TESTING HPV TESTING [facility] Start: 07-14-2014 Assay of thyroid stimulating hormone tsh TSH (20937) [facility] Work Phone: Start: 07-14-2014 Thyrotropin Qn TSH (45126) [facility] Work Phone: Start: 10-02-2012 Skin test tuberculosis intradermal PPD (94313) [facility] Work Phone: Payers Date Payer Category Payer Unknown 2018 Unknown [id number] Social History Date Type Detail Facility Caffeine Use Never smoker [facility] Work Phone: Progress note 01-17-2022 Note Date & Type Note Facility 01-17-2022 Note HNO ID: [id number] Author: Sanam Phelps APRN.CNNitesh Service: ? Author Type: Photo Editor Type: Progress Notes Filed: 01/17/2022 8:55 PM Note Text: Chet Saul is a 36 year old female who presents for problem visit breast complaint. HPI: Presents today as a new patient with left breast complaint. Left breast started itching 3 weeks ago and in the last week started having tingling and discomfort. Pain is on bottom left outer left breast. No redness, skin changes or dimpling. No new medications or diagnoses. LMP 01/13, cycles are regular. Due for annual exam. OB History T0 L0 SAB0 IAB0 Ectopic0 Multiple0 Live Births0 [facility] History LMP: 01/14/2012, Having periods Age at Menarche: Age at First : Age at Menopause: [facility] History Comments: Sexual Activity: Never; No partner data on record Contraception: No contraception data on record PAST MEDICAL HISTORY Diagnosis Date Asthma Allergy induced asthma in the past. PAST SURGICAL HISTORY Procedure Laterality Date TONSILLECTOMY AND ADENOIDECTOMY FAMILY HISTORY Problem Relation Age of Onset Diabetes Paternal Grandfather other (Heart disease [Other]) Unknown Paternal family history Social History Tobacco Use Smoking status: Never Substance Use Topics Alcohol use: No Drug use: No Current Outpatient Medications Medication Sig levothyroxine (SYNTHROID) 125 mcg tablet Take 125 mcg by mouth once daily. escitalopram oxalate (LEXAPRO) 20 mg tablet Take 20 mg by mouth once daily. Cholecalciferol, Vitamin D3, 50 mcg (2,000 unit) cap Take by mouth. albuterol 2.5 mg /3 mL (0.083 %) nebulizer solution Use 3 mL via nebulizer every 4 hours as needed for Wheezing/Shortness of Breath. Use over 5-15minutes. codeine-guaiFENesin 10-100 mg/5 mL syrup Take 5-10 mL by mouth four times daily as needed for Cough. May cause drowsiness. (Patient not taking: Reported on 01/17/2022) albuterol HFA 90 mcg/actuation inhaler Inhale 2 Puffs as instructed every 6 hours as needed for Wheezing/Shortness of Breath (cough). No current facility-administered medications for this visit. Allergies As of Date: 01/17/2022 (No Known Allergies) Fully Assessed 01/17/2022 REVIEW OF SYSTEMS Abdomen: No bloating, early satiety, indigestion, or increased flatulence. No abdominal pain, nausea, vomiting, diarrhea, or constipation. Bladder: No dysuria, gross hematuria, urinary frequency, urinary urgency, or incontinence. Breast: No breast lumps, nipple d/c, overlying skin changes, redness or skin retraction. Expanded ROS: N/A Allergies and current medication updated:Yes EXAM: BP 120/68 Wt 283 lb 6.4 oz (128.5kg) LMP 01/14/2012 GENERAL: pleasant, female in no apparent distress HEENT: Normocephalic and atraumatic BREAST: soft, non-tender, symmetric, no dominant mass, normal nipple-areolar complex, no lymphadenopathy, and no nipple discharge CHEST: Normal inspiratory effort NEURO: alert and oriented x3,exam grossly non-focal EXTREMITIES: normal ASSESSMENT AND PLAN: 1. Breast pain, left - ICD9: 611.71, ICD10: N64.4 -Reviewed with patient no clinical concerns at this time upon presentation today. To wear supportive bra. Discussed follow up in 4 weeks and to look at timing to menses. Patient mentioned after exam feels similar to shingles burning. I do not see any blisters today in office but if develop to notify PCP. If symptoms present in 4 weeks will order breast US and mammogram. Patient agreeable to plan. Sanam Phelps APRN.CNM [facility] History of Present illness Narrative 01-17-2022 Sanam Phelps APRN.CNM - 01/17/2022 2:01 PM EST Note Date & Type Note Facility 01-17-2022 History of Presen t illness Narrative Chet Saul is a 36 year old female who presents for problem visit breast complaint. HPI: Presents today as a new patient with left breast complaint. Left breast started itching 3 weeks ago and in the last week started having tingling and discomfort. Pain is on bottom left outer left breast. No redness, skin changes or dimpling. No new medications or diagnoses. LMP 01/13, cycles are regular. Due for annual exam. OB History T0 L0 SAB0 IAB0 Ectopic0 Multiple0 Live Births0 [facility] History LMP: 01/14/2012, Having periods Age at Menarche: Age at First : Age at Menopause: [facility] History Comments: Sexual Activity: Never; No partner data on record Contraception: No contraception data on record PAST MEDICAL HISTORY Diagnosis Date Asthma Allergy induced asthma in the past. PAST SURGICAL HISTORY Procedure Laterality Date TONSILLECTOMY & ADENOIDECTOMY <AGE 12 FAMILY HISTORY Problem Relation Age of Onset Diabetes Paternal Grandfather other (Heart disease [Other]) Unknown Paternal family history Social History Tobacco Use Smoking status: Never Substance Use Topics Alcohol use: No Drug use: No Current Outpatient Medications Medication Sig levothyroxine (SYNTHROID) 125 mcg tablet Take 125 mcg by mouth once daily. escitalopram oxalate (LEXAPRO) 20 mg tablet Take 20 mg by mouth once daily. Cholecalciferol, Vitamin D3, 50 mcg (2,000 unit) cap Take by mouth. albuterol 2.5 mg /3 mL (0.083 %) nebulizer solution Use 3 mL via nebulizer every 4 hours as needed for Wheezing/Shortness of Breath. Use over 5-15minutes. codeine-guaiFENesin 10-100 mg/5 mL syrup Take 5-10 mL by mouth four times daily as needed for Cough. May cause drowsiness. (Patient not taking: Reported on 01/17/2022) albuterol HFA 90 mcg/actuation inhaler Inhale 2 Puffs as instructed every 6 hours as needed for Wheezing/Shortness of Breath (cough). No current facility-administered medications for this visit. Allergies As of Date: 01/17/2022 (No Known Allergies) Fully Assessed 01/17/2022 REVIEW OF SYSTEMS Abdomen: No bloating, early satiety, indigestion, or increased flatulence. No abdominal pain, nausea, vomiting, diarrhea, or constipation. Bladder: No dysuria, gross hematuria, urinary frequency, urinary urgency, or incontinence. Breast: No breast lumps, nipple d/c, overlying skin changes, redness or skin retraction. Expanded ROS: N/A Allergies and current medication updated:Yes EXAM: BP 120/68 Wt 283 lb 6.4 oz (128.5kg) LMP 01/14/2012 GENERAL: pleasant, female in no apparent distress HEENT: Normocephalic and atraumatic BREAST: soft, non-tender, symmetric, no dominant mass, normal nipple-areolar complex, no lymphadenopathy, and no nipple discharge CHEST: Normal inspiratory effort NEURO: alert and oriented x3,exam grossly non-focal EXTREMITIES: normal ASSESSMENT AND PLAN: 1. Breast pain, left - ICD9: 611.71, ICD10: N64.4 -Reviewed with patient no clinical concerns at this time upon presentation today. To wear supportive bra. Discussed follow up in 4 weeks and to look at timing to menses. Patient mentioned after exam feels similar to shingles burning. I do not see any blisters today in office but if develop to notify PCP. If symptoms present in 4 weeks will order breast US and mammogram. Patient agreeable to plan. Sanam Phelps APRN.CNM documented in this encounter [facility] Evaluation note Note Date & Type Note Facility documented in this encounter [facility] Instructions Note Date & Type Note Facility [facility]; [facility] Work Phone: Family History No Family History Records FoundUnknown Family Member Name Dates Details Father Comments:HTN Status:Active Maternal Grandfather Comments:pros cancer Status:Active Mother Comments:fibromyalgia Status:Active Unknown Family Member Name Dates Details Father Comments:HTN Status:Active Maternal Grandfather Comments:pros cancer Status:Active Mother Comments:fibromyalgia Status:Active Unknown Family Member Name Dates Details Father Comments:HTN Status:Active Maternal Grandfather Comments:pros cancer Status:Active Mother Comments:fibromyalgia Status:Active Instructions Name Dates Details Non-smoker : How to access [facility] information online Indication:Non-smoker Non-smoker : How to access h ealth information online - Detail Indication:Non-smoker Non-smoker : Patient Instruc tions Indication:Non-smoker Juan's thyroiditis : Ho w to access health information online Indication:Juan's thyroiditis Juan's thyroiditis : Ho w to access health information online - Detail Indication:Juan's thyroiditis Juan's thyroiditis : Marvin serra Instructions Indication:Juan's thyroiditis Name Dates Details Non-smoker : How to access h ealth information online Indication:Non-smoker Non-smoker : How to access h ealth information online - Detail Indication:Non-smoker Non-smoker : Patient Instruc tions Indication:Non-smoker Juan's thyroiditis : Ho w to access health information online Indication:Juan's thyroiditis Juan's thyroiditis : Ho w to access health information online - Detail Indication:Juan's thyroiditis Juan's thyroiditis : Marvin serra Instructions Indication:Juan's thyroiditis Summary Purpose Advance Directives No Advanced Directives Records Found Additional Source Comments Source Comments (unrecognize d section and content) In the event this informatio n is protected by the Federal Confidentiality of Alcohol and Drug Abuse Patient Records regulations: The Federal rules restrict any use of the information to criminally investigate or prosecute any alcohol or drug abuse patient.[facility] Reason for Visit (unrecogniz ed section and content) Care Teams (unrecognized sec tion and content) INFORMATION SOURCE (unrecogn ized section and content) FOR RECORDS PERTAINING TO PATIENTS WHO ARE OR HAVE BEEN ENROLLED IN A CHEMICAL DEPENDENCY/SUBSTANCEABUSE PROGRAM, SOME INFORMATION MAY BE OMITTED. This clinical summary was aggregated from multiple sources. Caution should be exercised in using it in the provision of clinical care. This summary normalizes information from multiple sources, and as a consequence, information in this document may materially change the coding, format and clinical context of patient data. In addition, data may be omitted in some cases. CLINICAL DECISIONS SHOULD BE BASED ON THE PRIMARY CLINICAL RECORDS. [facility] [employer] [facility]. provides no warranty or guarantee of the accuracy or completeness of information in this document.
[2023-03-25 14:07] LABS: T4 Free Direct 1.21 ng/dL (0.76-1.46); Thyroid Stim Hormone (TSH) 3.65 uIU/mL (0.358-3.74)
== END | disposition home or self-care (01) ==
LOC: LAB 12:22
PROVIDERS: PCP Nurse Practitioner Family; Referring Provider Nurse Practitioner Family; Visit Provider Nurse Practitioner Family
DX: E03.8 Other specified hypothyroidism (principal); E06.3 Autoimmune thyroiditis
CPT/HCPCS: 36415; 84439; 84443

== ENCOUNTER → 2023-10-05 | Outpatient (CLI) | payer OTHER, SELFPAY ==
[2023-10-05 11:04] LABS: Thyroid Stim Hormone (TSH) 0.485 uIU/mL (0.358-3.740)
== END | disposition home or self-care (01) ==
PROVIDERS: PCP Nurse Practitioner Family; Referring Provider Internal Medicine Endocrinology, Diabetes & Metabolism; Visit Provider Internal Medicine Endocrinology, Diabetes & Metabolism
DX: E03.8 Other specified hypothyroidism (principal); E06.3 Autoimmune thyroiditis
CPT/HCPCS: 36415; 84439; 84443

== ENCOUNTER → 2023-10-16 | Outpatient (CLI) | payer OTHER, SELFPAY ==
--- NOTE | 2023-10-16 14:00 | RAD_ITS ---
STUDY: X-RAY CHEST REASON FOR EXAM: Female, 38 years old. Cough. Evaluate for pneumonia. TECHNIQUE: Frontal and lateral views of the chest on 3 images. COMPARISON: January 06, 2018 FINDINGS: The lungs are clear and expanded. There is no demonstrated pleural abnormality. Normal size heart. Normal mediastinum and jacki. Normal visualized pulmonary arteries. Normal visualized aortic arch and descending thoracic aorta. Normal visualized thoracic spine. Normal visualized ribs, clavicles, and shoulders. No abnormality of the visualized soft tissue structures of the upper abdomen. RAD/Chest PA and Lateral IMPRESSION: No interval change. Normal chest. Electronically Signed: Onesimo Ardon MD at 15:26 EDT ,
== END | disposition home or self-care (01) ==
LOC: MTRAD 13:57
PROVIDERS: PCP Nurse Practitioner Family; Referring Provider Nurse Practitioner Family; Visit Provider Nurse Practitioner Family
DX: R05.9 Cough, unspecified (principal)
CPT/HCPCS: 71046

== ENCOUNTER → 2023-12-16 | Outpatient (CLI) | payer OTHER, SELFPAY ==
[2023-12-16 13:59] LABS: T4 Free Direct 1.27 ng/dL (0.76-1.46); Thyroid Stim Hormone (TSH) 0.332 uIU/mL (0.358-3.740)
== END | disposition home or self-care (01) ==
LOC: LAB 12:24
PROVIDERS: PCP Nurse Practitioner Family; Referring Provider Nurse Practitioner Family; Visit Provider Nurse Practitioner Family
DX: E03.8 Other specified hypothyroidism (principal); E06.3 Autoimmune thyroiditis
CPT/HCPCS: 36415; 84439; 84443

== ENCOUNTER → 2024-04-15 | Outpatient (CLI) | payer OTHER, SELFPAY | END | disposition home or self-care (01) | PROVIDERS: PCP Nurse Practitioner Family; Referring Provider Internal Medicine Endocrinology, Diabetes & Metabolism; Visit Provider Internal Medicine Endocrinology, Diabetes & Metabolism | DX: E03.8 Other specified hypothyroidism (principal); E06.3 Autoimmune thyroiditis | CPT/HCPCS: 36415; 84439; 84443 ==

== ENCOUNTER → 2025-01-27 | Outpatient (CLI) | payer OTHER, SELFPAY ==
--- OUTSIDE RECORDS SUMMARY | 2025-01-27 19:29 | XMS RPT_ITS | CCD ---
Author Organization [facility] Care Team Providers Care Community Specialist Name Role Phone Anh Tsang Unavailable Hoang Baca Unavailable Imelda Herrera Unavailable Unavailable Alcides, Lori Unavailable Unavailable Noel Saul Unavailable Unavailable Marleny Smallwood Unavailable Unavailable Unavailable Isabela Subramanian Unavailable Unavailable Anh Tsang DO Unavailable Trever Parmar Unavailable Keven HAWKINS, Dr. Hoang Jamison Unavailable Ivette Lawson Unavailable Slarb UI UX ENGINEER, Karie Unavailable Unavailable Alcides Lori Unavailable Unavailable aSvita Alba LPN Unavailable Unavailable Noel Saul RN Unavailable Unavailable CiMarleny bhatti CNP Unavailable Unavailable Unavailable Dr. Anh Tsang Primary Care Provider [phone] Dr. Anh Tsang Referring Provider Dr. Steven Villatoro Attending Provider [phone] Dr. Steven Villatoro Primary Care Provider [phone] Dr. Steven Villatoro Referring Provider [phone] Lisbeth SHERMAN, FLUE BLOWER-C Junior Attending Provider [phone] Pcp, No Primary Care Provider UnavailDr. Steven Valero Referring Provider [phone] Dr. Maryse Berg Attending Provider Lisbeth FLUE BLOWER, FLUE BLOWER-C Junior Primary Care Provider Dr. Kit Trejo Attending Provider Unavailable Primary Care Provider UnavailKit Jackson Attending Unavailable Randy, Anjelica Primary Care Unavailable , Kit Referring Unavailable Randy, Anjelica Primary Care Unavailable Randy, Anjelica Referring Unavailable Randy, Anjelica Attending Unavailable Randy, Anjelica Primary Care Unavailable Elvin, Noel Referring Unavailable Noel Oconnor Attending Unavailable , Kit Referring Unavailable Kit Trejo Attending Unavailable Randy, Anjelica Primary Care Unavailable Kit Trejo Attending Unavailable Lisbeth FLUE BLOWER, Junior Referring Unavailable Bob FLUE BLOWER, Junior Primary Care Unavailable Randy, Anjelica Primary Care Unavailable Kit Trejo Attending Unavailable Randy, Anjelica Referring Unavailable Maryse Berg Attending Unavaildonna Bob FLUE BLOWER, Junior Referring Unavailable Lisbeth FLUE BLOWER, Junior Primary Care Unavailable Dr. Kit Trejo MD Attending Provider [phone] Randy FLUE BLOWER-C, [place] Primary Care Provider Randy FLUE BLOWER-C, [place] Referring Provider [phone] Dr. Kit Trejo MD Referring Provider [phone] THIEN VIDAL Attending Unavailable Medications Current Medications Medication Drug Class(es) Dates Sig (Normalized) Sig (Original) benzonatate 100 mg oral capsule (8 sources) Non-narcotic Antitussive Start: 03-05-2024 End: 03-20-2024 take 1 capsule by mouth every eight hours as needed for cough benzonatate (TESSALON PERLE) 100 mg capsule Indications: Acute cough Take 1 capsule by mouth every 8 hours as needed for cough for up to 15 days. 30 capsule 03/05/2024 03/20/2024 Active Start: 12-31-2023 take 1 capsule by [facility] every eight hours as needed Benzonatate 200 mg capsule Take 1 capsule by mouth three times a day as needed. 21 capsule 12/31/2023 Active Start: 02-28-2022 End: 07-27-2022 Benzonatate 200 mg capsule Discontinued 200 mg PO 2 to 3 times per day as needed for cough February 28, 2022 1:00am July 27, 2022 3:56pm cholecalciferol 0.05 mg oral capsule (10 sources) Vitamin D Start: 04-07-2021 Cholecalcifero l, Vitamin D3, 50 mcg (2,000 unit) cap Take by mouth. 04/07/2021 Active take 1 capsule by mouth once agapito ly Vitamin D 50 MCG (1999 UT) Oral Capsule daily (50 MCG (1999 UT)) Active Comment on above: Take by mouth. codeine phosphate 2 mg/ml / guaiFENesin 20 mg/ml oral solution (5 sources) Opioid Agonist Start: 2 take 5-10 mL by mouth every six hours as needed for cough and cough codeine-guaiFENesin 10-100 mg/5 mL syrup Indications: Cough Take 5-10 mL by mouth four times daily as needed for Cough. May cause drowsiness. 120 mL 0 01/28/2012 Active Comment on above: Take 5-10 mL by mout h four times daily as needed for Cough. May cause drowsiness. doxycycline hyclate 100 mg oral tablet (1 source) Tetracycline-class Drug Start: 4 End: 4 take 1 tablet by mouth twice daily doxycycline (VIBRA-TABS) 100 mg tablet Take 1 tablet by mouth two times a day for 7 days. 14 tablet 12/31/2023 01/07/2024 Active escitalopram 20 mg oral tablet (18 sources) Serotonin Reuptake Inhibitor Start: 2 End: 3 take 1 tablet by mouth once daily escitalopram oxalate (LEXAPRO) 20 mg tablet Take 20 mg by mouth once daily. 12/08/2021 Active Start: 05-31-2021 End: 06-22-2021 take 1 tablet by mouth once daily Escitalopram Oxalate 10 mg tablet Discontinued 10 mg PO DAILY May 31, 2021 1:00pm June 22, 2021 11:05am Start: 05-12-2021 End: 05-31-2021 take 1 tablet by mouth once daily Escitalopram Oxalate (Lexapro) 5 mg tablet Discontinued 5 mg PO DAILY May 12, 2021 12:00am May 31, 2021 1:01pm Comment on above: Take 20 mg by mouth once daily. levothyroxine sodium 0.125 mg oral tablet (20 sources) l-Thyroxine Start: 4 take 0.5 tablet by mouth once daily Levothyroxine 125 mcg tablet Active 125 ug PO .qd, 1/2 on SaturdayDecember 17, 2023 12:21pm Start: 11-06-2020 End: 12-17-2023 take 1 tablet by mouth once daily levothyroxine (SYNTHROID) 125 mcg tablet Take 125 mcg by mouth once daily. 12/08/2021 Active Start: 07-29-2020 End: 11-06-2020 Levothyroxine 125 mcg tablet Discontinued 125 ug PO .1 qd, 1/2 on SundaysJuly 29, 2020 2:49pm November 06, 2020 4:19pm Start: 04-01-2020 End: 07-29-2020 take 1 tablet by mouth once daily Levothyroxine 125 mcg tablet Discontinued 125 ug PO DAILY June 28, 2020 1:52pm July 29, 2020 2:50pm Start: 05-01-2019 End: 04-01-2020 take 1 tablet by mouth once daily Levothyroxine 150 mcg tablet Discontinued 150 ug PO DAILY May 01, 2019 12:00am April 01, 2020 7:01pm Start: 03-12-2019 take 1 tablet by francisco th once daily Synthroid 137 MCG Oral Tablet 1 Tablet qd for 0 days Quantity: 90 {Tablet} Refills: 3 Ordered: 12-Mar-2019 Anh Tsang DO, DO, Kathleen Start : 12-Mar-2019 Active Dispense as Written Comments: RUBEN Start: 01-17-2018 take 1 tablet by francisco th once daily Synthroid 125 MCG Oral Tablet 1 Tablet qd for 0 days Quantity: 90 {Tablet} Refills: 3 Ordered: 17-Jan-2018 Marleny Smallwood CNP Start : 17-Jan-2018 Active Dispense as Written Start: 01-06-2018 take 1 tablet by francisco th once daily Synthroid 125 MCG Oral Tablet 1 Tablet qd for 0 days Quantity: 30 {Tablet} Refills: 3 Ordered: 06-Jan-2018 Anh Tsang DO, DO, Kathleen Start : 06-Jan-2018 Active Dispense as Written Start: 06-04-2015 End: 05-01-2019 Levothyroxine 125 MCG tablet Discontinued 137 ug PO DAILY June 04, 2015 12:00am May 01, 2019 3:11pm Start: 06-04-2015 End: 05-01-2019 take 137 ug by mouth once daily Levothyroxine Disconti nued 137 MCG PO DAILY June 03, 2015 11:00pm May 01, 2019 2:11pm End: 01-17-2022 take 1 tablet by mouth once daily before breakfast levothyroxine (SYNTHROID) 100 mcg tablet Take 100 mcg by mouth daily before breakfast. 0 01/17/2022 Discontinued (Duplicate Entry) Comment on above: RUBEN Take 125 mcg by mout h once daily. Take 100 mcg by mout h daily before breakfast. Multivitamin capsule (1 source) Start: 05-01-2019 Multivitamin capsule Active 1 NMA PO DAILY May 01, 2019 12:00am Multivitamin preparation (3 sources) Start: 05-01-2019 take 1 capsule by mouth once daily multivitamin Active 1 CAP PO DAILY May 01, 2019 2:42pm Start: 05-01-2019 take 1 capsule by mo uth once daily multivitamin Active 1 CAP PO DAILY April 30, 2019 11:00pm Start: 05-01-2019 take 1 capsule by mo uth once daily multivitamin Active 1 CAP PO DAILY May 01, 2019 12:00am predniSONE 20 mg oral tablet (11 sources) Start: 12-31-2023 End: 01-04-2024 take 2 tablets by mouth once daily at mealtime predniSONE (DELTASONE) 20 mg tablet Take 2 tablets by mouth once daily for 4 days. Take daily with food. 8 tablet 12/31/2023 01/04/2024 Active Start: 09-03-2021 End: 02-28-2022 Prednisone 10 mg tablet Disc ontinued 10 mg PO .COMPLEX September 03, 2021 12:00am February 28, 2022 5:32pm Take 4 pills for 3 days, 3 pills for 3 days, 2 pills for 3 days, take 1 pill for 3 days Start: 01-07-2021 End: 01-12-2021 take 1 tablet by mouth once daily Prednisone 50 mg tablet Discontinued 50 mg PO DAILY 5 5 January 07, 2021 1:00am January 11, 2021 1:00am January 12, 2021 1:01am Start: 01-29-2012 End: 06-11-2013 PREDNISONE, 20MG (Oral Table t) 1 Tablet bid x 3 days, 1 qd x 4 days, 1/2 x 4 days for 0 days Refills: 0 Ordered: 11-Jun-2013 Imelda Herrera RN Start : 29-Jan-2012 End : 11-Jun-2013 Inactive semaglutide (OZEMPIC SUBCUTANEOUS) (4 sources) semaglutide (OZE MPIC SUBCUTANEOUS) Inject subcutaneously. Active Semaglutide (Weight Loss) (1 source) Start: 08-02-19 Semaglutide (Weight Loss) (Wegovy) 0.25 mg/0.5 mL pen injector Active 0.25 mg SC EVERY WEEK 2 August 02, 2023 12:00am administer weeks 1 through 4 of therapy valACYclovir 1000 mg oral tablet (6 sources) Herpesvirus Nucleoside Analog DNA Polymerase Inhibitor, Herpes Simplex Virus Nucleoside Analog DNA Polymerase Inhibitor, Herpes Zoster Virus Nucleoside Analog DNA Polymerase Inhibitor Start: 06-14-19 End: 06-21-19 take 1 tablet by mouth three times daily valACYclovir (VALTREX) 1 gram tablet Indications: Rash Take 1 tablet by mouth three times a day for 7 days. 21 tablet 06/13/2024 06/20/2024 Active Start: 01-07-2021 End: 01-14-2021 Valacyclovir 1 gram tablet Discontinued 1000 mg PO THREE TIMES A DAY 31 08January 07, 2021 1:00am January 13, 2021 1:00am January 14, 2021 1:01am Start: 01-07-2021 End: 01-14-2021 take 1000 mg by mouth three times daily Valacyclovir Discontinued 1000 MG PO THREE TIMES A DAY 31 08January 07, 2021 12:00am January 14, 2021 12:01am Completed/Discontinued Medications Medication Drug Class(es) Dates Sig (Normalized) Sig (Original) [id number] 200 actuat albuterol 0.09 mg/actuat metered dose inhaler (16 sources) beta2-Adrenergic Agonist Start: 09-03-2021 End: 07-27-2022 Albuterol Sulfate 90 mcg/actuation HFA aerosol inhaler Discontinued 2 NMA INHALATION EVERY 6 HOURS as needed for shortness of breath or wheezing 6.7 September 03, 2021 12:00am July 27, 2022 3:56pm Start: 09-03-2021 End: 07-27-2022 take 1 puff(s) by inhalation every six hours Albuterol Sulfate Discontinued 2 PUFF INHALATION EVERY 6 HOURS 6.7 September 02, 2021 11:00pm July 27, 2022 2:56pm Start: 01-13-2021 take 2 puff(s) by in halation three times daily as needed for cough ProAir HFA 108 (90 Base) MCG/ACT Inhalation Aerosol Solution 2 (two) Puff(s) tid prn cough for 0 days Quantity: 1 {Unspecified} Refills: 0 Ordered: 13-Jan-2021 Anh Tsang DO, DO, Kathleen Start : 13-Jan-2021 Active Comments: dispense one inhaler Start: 01-29-2012 End: 06-11-2013 take 2 puff(s) by inhalation three times daily PROAIR HFA, 108 (90 Base)MCG/ACT (Inhalation Aerosol Solution) 2 (two) Puff(s) tid for 0 days Quantity: 1 {Aerosol_Soln} Refills: 0 Ordered: 11-Jun-2013 Imelda Herrera LPN Start : 29-Jan-2012 End : 11-Jun-2013 Inactive Start: 01-28-2012 take 2.5 mg by inhal ation every four hours as needed for cough and cough albuterol 2.5 mg /3 mL (0.083 %) nebulizer solution Indications: Cough Use 3 mL via nebulizer every 4 hours as needed for Wheezing/Shortness of Breath. Use over 5-15minutes. 1 Vial 0 01/28/2012 Active Start: 01-28-2012 take 2 puff(s) by in halation every six hours as needed for cough albuterol HFA 90 mcg/actuation inhaler Indications: Cough Inhale 2 Puffs as instructed every 6 hours as needed for Wheezing/Shortness of Breath (cough). 1 Inhaler 1 01/28/2012 Active Comment on above: dispense one inhaler Use 3 mL via nebuliz er every 4 hours as needed for Wheezing/Shortness of Breath. Use over 5-15minutes. Inhale 2 Puffs as in structed every 6 hours as needed for Wheezing/Shortness of Breath (cough). amoxicillin 875 mg / clavulanate 125 mg oral tablet (3 sources) Penicillin-class Antibacterial Start: 03-11-19 End: 05-08-19 07 take 1 tablet by mouth twice daily AUGMENTIN, 875-125MG (Oral Tablet) 1 (one) Tablet BID for 10 days Quantity: 20 {Tablet} Refills: 0 Ordered: 11-Mar-2006 JONI SINGH CNP Start : 11-Mar-2006 End : 07-May-2006 Inactive azithromycin 250 mg oral tablet (4 sources) Macrolide Antimicrobial Start: 02-15-19 End: 02-28-19 Azithromycin 250 mg tablet Discontinued 250 mg PO daily February 15, 2022 1:00am February 28, 2022 5:31pm 2 tablets today, then 1 tablet daily on days 2 through 5 Start: 01-13-2021 take 1 tablet by francisco once daily Zithromax Z-Papito 250 MG Oral Tablet tad Tablet qd for 0 days Quantity: 1 {Unspecified} Refills: 0 Ordered: 13-Jan-2021 Anh Tsang DO, DO, Kathleen Start : 13-Jan-2021 Active Comments: dispense one pack Comment on above: dispense one pack busPIRone hydrochloride 10 mg oral tablet (6 sources) Start: 2 End: 3 take 1 tablet by mouth twice daily Buspirone 10 mg tablet Discontinued 10 mg PO TWICE A DAY 180 October 03, 2021 12:01pm February 28, 2022 5:32pm Start: 08-11-2021 End: 10-03-2021 take 1 tablet by mouth twice daily Buspirone 5 mg tablet Discontinued 5 mg PO TWICE A DAY 60 August 11, 2021 12:00am October 03, 2021 12:02pm citalopram 20 mg oral tablet (3 sources) Serotonin Reuptake Inhibitor Start: 06-29-2011 End: 06-11-2013 take 1 tablet by mouth once daily CELEXA, 20MG (Oral Tablet) 1 Tablet qd for 0 days Quantity: 30 {Tablet} Refills: 3 Ordered: 11-Jun-2013 Imelda Herrera RN Start : 29-Jun-2011 End : 11-Jun-2013 Inactive codeine phosphate 2 mg/ml / guaiFENesin 20 mg/ml / pseudoephedrine hydrochloride 6 mg/ml oral solution (3 sources) alpha-Adrenergic Agonist, Opioid Agonist Start: 03-14-2006 End: 02-20-2008 MYTUSSIN DAC, 30-10-100MG/5ML (Oral Solution) 2 (two) Teaspoon(s) q4 hours prn for 0 days Quantity: 4 {Ounce(s)} Refills: 0 Ordered: 14-Mar-2006 Imelda Herrera RN Start : 14-Mar-2006 End : 20-Feb-2008 Inactive docosahexaenoic acid 200 mg oral capsule (4 sources) Start: 02-02-2019 End: 05-01-2019 take 1 capsule by mouth once daily Docosahexaenoic Acid 200 MG capsule Discontinued 200 mg PO DAILY February 02, 2019 1:00am May 01, 2019 2:41pm docusate sodium 100 mg oral capsule (4 sources) Start: 02-02-2019 End: 05-01-2019 take 1 capsule by mouth twice daily Docusate Sodium 100 MG capsule Discontinued 100 mg PO TWICE A DAY February 02, 2019 1:00am May 01, 2019 2:40pm 1 po bid to prevent constipation. ergocalciferol 1.25 mg oral capsule (4 sources) Provitamin D2 Compound Start: 02-02-2019 End: 04-07-2021 take 1 capsule by mouth once daily Ergocalciferol (Vitamin D2) 50,000 UNIT capsule Discontinued 2000 U PO DAILY February 02, 2019 1:00am April 07, 2021 4:00pm esomeprazole 20 mg delayed release oral capsule (7 sources) Proton Pump Inhibitor Start: 01-17-2018 End: 03-11-2019 NexIUM 20 MG Oral Capsule Delayed Release 1 Capsule every three days for 90 days Quantity: 36 {Capsule} Refills: 2 Ordered: 11-Mar-2019 Savita Alba LPN Start : 17-Jan-2018 End : 11-Mar-2019 Inactive Start: 01-06-2018 take [address] [facility] once daily NexIUM 20 MG Oral Capsule Delayed Release 1 Capsule qd for 30 days Quantity: 30 {Capsule} Refills: 2 Ordered: 06-Jan-2018 Anh Tsang DO, DO, Kathleen Start : 06-Jan-2018 Active Start: 06-04-2015 End: 05-01-2019 take 1 tablet by mouth once Esomeprazole Magnesium 20 MG tablet,delayed release (DR/EC) Discontinued 20 mg PO ONE TIME June 04, 2015 12:00am May 01, 2019 2:40pm LOESTRIN FE 1/20, 1-20MG-MCG (Oral Tablet) (3 sources) Estrogen End: 06-15-2011 take 1 tablet by mouth once daily LOESTRIN FE 1/20, 1-20MG-MCG (Oral Tablet) 1 tab qd for 0 days Refills: 0 Ordered: 15-Jun-2011 Noel Saul RN End : 15-Jun-2011 Inactive End: 06-15-2011 take 1 tablet by mouth once daily LOESTRIN FE 1/20, 1-20MG-MCG (Oral Tablet) 1 tab qd for 0 days Refills: 0 Ordered: 15-Jun-2011 Noel Saul LPN End : 15-Jun-2011 Inactive CRYSELLE-28, 0.3-30MG-MCG (Oral Tablet) (3 sources) Estrogen Start: 06-15-2011 End: 06-11-2013 take 1 tablet by mouth once daily CRYSELLE-28, 0.3-30MG-MCG (Oral Tablet) 1 Tablet qd for 30 days Quantity: 30 {Tablet} Refills: 0 Ordered: 11-Jun-2013 Imelda Herrera RN Start : 15-Jun-2011 End : 11-Jun-2013 Inactive Comments: Thomas Start: 06-15-2011 End: 06-11-2013 take 1 tablet by mouth once daily CRYSELLE-28, 0.3-30MG-MCG (Oral Tablet) 1 Tablet qd for 30 days Quantity: 30 {Tablet} Refills: 0 Ordered: 11-Jun-2013 Imelda Herrera LPN Start : 15-Jun-2011 End : 11-Jun-2013 Inactive Comments: Thomas Comment on above: Thomas ferrous gluconate 324 mg oral tablet (4 sources) Start: 9 End: 0 take 1 tablet by mouth once daily Ferrous Gluconate 324 MG tablet Discontinued 324 mg PO DAILY February 04, 2019 1:00am May 01, 2019 2:41pm fluconazole 150 mg oral tablet (3 sources) Azole Antifungal Start: 2 End: 2 DIFLUCAN, 150MG (Oral Tablet) 1 Tablet one time and can repeat 3 days later for 3 days Quantity: 2 {Tablet} Refills: 0 Ordered: 07-Apr-2012 Tamera Judge MD Start : 28-Jan-2012 End : 31-Jan-2012 Inactive fluticasone / salmeterol (3 sources) Corticosteroid, beta2-Adrenergic Agonist Start: 7 End: 2 ADVAIR DISKUS, 250-50MCG/DOSE (Inhalation Aerosol Powder Breath Activated) 1 Misc bid for 0 days Refills: 0 Ordered: 15-Jun-2011 Noel Saul RN Start : 11-Mar-2006 End : 15-Jun-2011 Inactive Start: 03-11-2006 End: 06-15-2011 ADVAIR DISKUS, 250-50MCG/DOS E (Inhalation Aerosol Powder Breath Activated) 1 Misc bid for 0 days Refills: 0 Ordered: 15-Jun-2011 Noel Saul LPN Start : 11-Mar-2006 End : 15-Jun-2011 Inactive hydrOXYzine hydrochloride 25 mg oral tablet (7 sources) Antihistamine Start: 05-12-2021 End: 02-07-2024 take 1 tablet by mouth at bedtime as needed for anxiety Hydroxyzine Hcl 25 mg tablet Discontinued 25 mg PO AT BEDTIME as needed for anxiety 60 February 28, 2022 5:47pm February 07, 2024 4:42pm 200 actuat levalbuterol 0.045 mg/actuat metered dose inhaler (6 sources) beta2-Adrenergic Agonist Start: 03-11-2006 End: 02-20-2008 XOPENEX HFA, 45MCG/ACT (Inhalation Aerosol) Aerosol prn for 0 days Refills: 0 Ordered: 11-Mar-2006 Imelda Herrera RN Start : 11-Mar-2006 End : 20-Feb-2008 Inactive Start: 03-11-2006 End: 02-20-2008 XOPENEX HFA, 45MCG/ACT (Inha lation Aerosol) Aerosol prn for 0 days Refills: 0 Ordered: 11-Mar-2006 Imelda Herrera LPN Start : 11-Mar-2006 End : 20-Feb-2008 Inactive take 2 puff(s) by in halation every six hours as needed XOPENEX HFA, 45MCG/ACT (Inhalation Aerosol) 2 puffs Q 6hr/PRN (45 MCG/ACT) Inactive take 2 puff(s) by in halation every six hours as needed XOPENEX HFA, 45MCG/ACT (Inhalation Aerosol) 2 puffs Q 6hr/PRN (45 MCG/ACT) Inactive levoFLOXacin 500 mg oral tablet (3 sources) Quinolone Antimicrobial Start: 01-29-2012 End: 02-05-2012 take 1 tablet by mouth once daily LEVAQUIN, 500MG (Oral Tablet) 1 Tablet daily for 7 days Quantity: 7 {Tablet} Refills: 0 Ordered: 29-Jan-2012 Marleny Smallwood CNP Start : 29-Jan-2012 End : 05-Feb-2012 Inactive methylPREDNISolone 4 mg oral tablet (3 sources) Corticosteroid Start: 02-28-2022 End: 07-27-2022 take 1 tablet by mouth once Methylprednisolone (Medrol (Papito)) 4 mg tablets,dose pack Discontinued 0 PO per package directions February 28, 2022 1:00am July 27, 2022 3:57pm PO PER PKG DIR mometasone furoate 0.05 mg/actuat metered dose nasal spray (3 sources) Corticosteroid Start: 03-11-2006 End: 05-07-2006 NASONEX, 50MCG/ACT (Nasal Suspension) Suspension for 0 days Refills: 0 Ordered: 11-Mar-2006 CLARISSE Harkins LPN Start : 11-Mar-2006 End : 07-May-2006 Discontinued Start: 03-11-2006 End: 05-07-2006 NASONEX, 50MCG/ACT (Nasal Packer spension) Suspension for 0 days Refills: 0 Ordered: 11-Mar-2006 CLARISSE Harkins Start : 11-Mar-2006 End : 07-May-2006 Discontinued montelukast 10 mg oral tablet (3 sources) Leukotriene Receptor Antagonist Start: 03-11-2006 End: 06-15-2011 take 1 tablet by mouth once daily SINGULAIR, 10MG (Oral Tablet) 1 Tablet qd for 0 days Refills: 0 Ordered: 15-Jun-2011 Noel Saul RN Start : 11-Mar-2006 End : 15-Jun-2011 Inactive moxifloxacin 400 mg oral tablet (3 sources) Quinolone Antimicrobial Start: 02-20-2008 End: 06-15-2011 take 1 tablet by mouth once daily AVELOX, 400MG (Oral Tablet) 1 (one) Tablet Daily for 0 days Quantity: 10 {Tablet} Refills: 0 Ordered: 15-Jun-2011 Noel Saul RN Start : 20-Feb-2008 End : 15-Jun-2011 Inactive naproxen 250 mg oral tablet (4 sources) Nonsteroidal Anti-inflammatory Drug Start: 02-02-2019 End: 05-01-2019 take 250-500 mg by mouth every eight hours as needed for pain Naproxen 250 MG tablet Discontinued 250 - 500 mg PO 3 TIMES DAILY NEEDED as needed for Mild-Mod Pain (1-5/10) February 02, 2019 1:00am May 01, 2019 2:41pm 1-2 po q 8 hr prn pain norethindrone 0.35 mg oral tablet (3 sources) Start: 06-11-2013 End: 08-10-2016 take 1 tablet by mouth once daily Jencycla 0.35 MG Oral Tablet 1 (one) Tablet qd for 30 days Refills: 0 Ordered: 10-Aug-2016 Imelda Herrera RN Start : 11-Jun-2013 End : 10-Aug-2016 Inactive oxyCODONE hydrochloride 5 mg oral tablet (4 sources) Opioid Agonist Start: 02-02-2019 End: 02-05-2019 take 1 tablet by mouth every six hours as needed for pain Oxycodone 5 MG tablet Discontinued 5 mg PO EVERY 6 HOURS NEEDED as needed for Mod-Severe Pain (4-10/10) 15 February 02, 2019 February 04, 2019 1:00am February 05, 2019 1:08am polyethylene glycol 3350 [id number] mg powder for oral solution (4 sources) Osmotic Laxative Start: 02-02-2019 End: 05-01-2019 take 17 g by mouth once daily as needed for constipation Polyethylene Glycol 3350 17 GM packet Discontinued 17 g PO DAILY as needed for Constipation February 02, 2019 1:00am May 01, 2019 2:41pm Oral Tablet (1 source) Oral Tablet daily Inactive zolpidem tartrate 5 mg oral tablet (3 sources) gamma-Aminobutyric Acid-ergic Agonist Start: 06-04-2006 End: 02-20-2008 take 1 tablet by mouth once daily at bedtime as needed for sleep AMBIEN, 5MG (Oral Tablet) 1 (one) Tablet qhs/prn for 0 days Quantity: 30 {Tablet} Refills: 5 Ordered: 04-Jun-2006 Imelda Herrera RN Start : 04-Jun-2006 End : 20-Feb-2008 Inactive Comments: told how take watch for sleep walking and se Comment on above: told how take watch for sleep walking and se Problems Active Problems Problem Classification Problem Date Documented Da te Episodic/Chronic Abdominal pain (1 source) Right upper quadrant pain; Translations: [RUQ pain] 01-13-2021 Episodic Acute bronchitis (3 sources) Acute bronchitis; Translations: [Acute bronchitis, unspecified] 02-15-2022 Episodic Administrative/social admission (7 sources) Patient encounter status; Translations: [School physical exam] 01-04-2015 Episodic Anxiety disorders (11 sources) Anxiety; Translations: [Anxiety] 11-15-2017 Chronic Asthma (9 sources) Acute exacerbation of asthma; Translations: [Asthma] 11-15-2017 Chronic Chronic obstructive pulmonary disease and bronchiectasis (3 sources) Bronchitis; Translations: [Bronchitis] 01-13-2021 Episodic Esophageal disorders (3 sources) Gastroesophageal reflux disease; Translations: [Gastroesophageal reflux disease, esophagitis presence not specified] 11-15-2017 Chronic Esophageal disorders (11 sources) Esophageal disorders Immunizations and screening for infectious disease (7 sources) Need for prophylactic vaccination and inoculation against influenza; Translations: [Encounter for screening for respiratory tuberculosis] 11-15-2017 Episodic Malaise and fatigue (9 sources) Fatigue; Translations: [Fatigue] Resolved: 9 08-03-2016 Episodic Comment on above: better with sleep be tter-use ambien prn, see how do once school outr Mood disorders (6 sources) Depressive disorder; Translations: [Depressive disorder] 11-15-2017 Chronic Neoplasms of unspecified nature or uncertain behavior (6 sources) 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; Translations: [Neoplastic disease of uncertain behavior] Resolved: 8 08-30-2017 Episodic Nonmalignant breast conditions (1 source) Mastodynia; Translations: [Mastodynia] Episodic Nutritional deficiencies (5 sources) Vitamin deficiency; Translations: [Vitamin deficiency, unspecified] Episodic Other bone disease and musculoskeletal deformities (4 sources) Costal chondritis; Translations: [Chondrocostal junction syndrome [Tietze]] 02-03-2019 Episodic Other connective tissue disease (3 sources) Radial styloid tenosynovitis [de Quervain]; Translations: [Tenosynovitis of right radial styloid] 11-15-2017 Episodic Other diseases of kidney and ureters (1 source) Parapelvic renal cyst; Translations: [Parapelvic renal cyst] 01-13-2021 Episodic Other gastrointestinal disorders (2 sources) Splenomegaly; Translations: [Spleen enlarged] 01-17-2018 Episodic Comment on above: Left upper quad Other gastrointestinal disorders (4 sources) Heartburn; Translations: [Heartburn] 05-04-2019 Episodic Other lower respiratory disease (6 sources) Wheezing; Translations: [Wheezing] Resolved: 7 08-03-2016 Episodic Other lower respiratory disease (3 sources) Dyspnea Episodic Other lower respiratory disease (8 sources) Cough; Translations: [Cough] Resolved: 7 08-03-2016 Episodic Comment on above: still horrible cough despite pred use that she just got Other lower respiratory disease (1 source) Apnea; Translations: [Witnessed episode of apnea] 01-13-2021 Episodic Other lower respiratory disease (3 sources) Postviral cough; Translations: [Post-viral cough syndrome] 09-03-2021 Episodic Other lower respiratory disease (1 source) Cough; Translations: [Acute cough] 03-05-2024 Episodic Other nutritional; endocrine; and metabolic disorders (9 sources) Obesity, unspecified; Translations: [Obesity] 11-15-2017 Chronic Other nutritional; endocrine; and metabolic disorders (3 sources) Body mass index 40+ - severely obese; Translations: [BMI 40.0-44.9, adult] 11-15-2017 Chronic Other nutritional; endocrine; and metabolic disorders (1 source) Obesity; Translations: [Obesity, unspecified] 08-05-2023 Chronic Other skin disorders (1 source) Eruption; Translations: [Rash and other nonspecific skin eruption] 06-13-2024 Episodic Other skin disorders (1 source) Rash and other nonspecific skin eruption; Translations: [Rash] Onset: Episodic Other upper respiratory disease (6 sources) Allergic rhinitis; Translations: [Allergic rhinitis] Resolved: 7 08-03-2016 Chronic Other upper respiratory infections (9 sources) Acute sinusitis, unspecified; Translations: [Acute sinusitis] 11-15-2017 Episodic Otitis media and related conditions (9 sources) Dysfunction of eustachian tube; Translations: [Otitis media] Resolved: 7 08-03-2016 Episodic Residual codes; unclassified (2 sources) Needs influenza immunization; Translations: [Need for prophylactic vaccination and inoculation against influenza (Renamed from Need for immunization against influenza)] 11-15-2017 Episodic Residual codes; unclassified (2 sources) H/O: surgery; Translations: [Tonsillectomy] 11-15-2017 Episodic Residual codes; unclassified (1 source) Non-smoker; Translations: [Non-smoker] 01-13-2021 Episodic Thyroid disorders (20 sources) Hypothyroidism; Translations: [Juan thyroiditis] Onset: 4 11-15-2017 Chronic Unclassified (20 sources) Unclassified (12 sources) Non-smoker; Translations: [Non-smoker] 11-15-2017 Unclassified (5 sources) Patient encounter status; Translations: [Encounter for screening for lipid disorder] Resolved: 8 08-30-2017 Unclassified (10 sources) BMI 40.0-44.9, adult Unclassified (5 sources) Juan's thyroiditis Unclassified (1 source) Cough, unspecified; Translations: [Cough, unspecified] Onset: 4 Viral infection (6 sources) Mononucleosis syndrome; Translations: [Infectious mononucleosis] Resolved: 0 01-17-2018 Episodic Past or Other Problems Problem Classification Problem Date Documented Date Episodic/Chronic Asthma (3 sources) Asthma Inflammatory diseases of female pelvic organs (5 sources) Cervicitis and endocervicitis; Translations: [Inflammatory disease of cervix uteri] Onset: 12-15-2010 12-15-2010 Episodic Other connective tissue disease (5 sources) Tendinitis; Translations: [Enthesopathy, unspecified] Onset: 10-18-2009 10-18-2009 Episodic Other female genital disorders (5 sources) Leukorrhea; Translations: [Other specified noninflammatory disorders of vagina] Onset: 12-15-2010 12-15-2010 Episodic Other female genital disorders (5 sources) Vulval and/or perineal noninflammatory disorders; Translations: [Noninflammatory disorder of vulva and perineum, unspecified] Onset: 12-15-2010 12-15-2010 Episodic Other inflammatory condition of skin (5 sources) Pruritus of skin; Translations: [Pruritus, unspecified] Onset: [...] Abnormal TSH (794.5) Unclassified (6 sources) Well Woman--jaleesas Resolved: 08-05-2008 08-03-2016 Unclassified (3 sources) Eustachian tube dysfunction (381.81) Unclassified (20 sources) Unspecified Diagnosis 09-11-2011 Unclassified (4 sources) Patient examined; Translations: [School physical exam] 11-15-2017 Unclassified (6 sources) SCHOOL PHYSICAL (V70.3) Unclassified (3 sources) De Quervain's tenosynovitis, right Unclassified (2 sources) Spleen enlarged Unclassified (1 source) Abortions/Miscarriage s; Translations: [Abortions/Miscarriag es] 01-13-2021 Comment on above: 2 Unclassified (1 source) Deliveries (Parity); Translations: [Deliveries (Parity)] 01-13-2021 Comment on above: 2 Unclassified (1 source) Pregnancies (); Translations: [Pregnancies ()] 01-13-2021 Comment on above: 4 Unclassified (1 source) Shingles Unclassified (1 source) Witnessed episode of apnea Unclassified (1 source) Parapelvic renal cyst Unclassified (1 source) Thyromegaly Unclassified (1 source) RUQ pain Results Test Name Value Interpretation Reference Range Facility CNOVon 06-13-2024 CNOV Office Visit ([facility] ) ROSY SAUL ([id number]) 1985 F Date Time Provider Department 06/13/24 9:30 AM THIEN VIDAL [facility] During your visit today, we recorded the following information about you: Temperature Pulse Respiration Blood pressure 97.3 degrees 72/minute 16/minute 108/72 Weight 108.2 kg Thien Vidal MD 06/13/2024 9:55 AM Signed [facility] Subjective Rosy Saul is a 38 year old female. Patient presents with: Rash: Tingling, nerve pain, itching and warmth on the right breast, hx of shingles, no open sores, hives Rash: Location: right lateral breast Duration: irritation for a few days, rash for 1 day Pruritis: Yes Pain: burning, tingling Bleeding/ulceration/bl ister/pustule: defined red T'shaped area Contacts with rash: No Exposure: No new soaps, detergents, fabric softeners, lotions. Recent illness: No. Treatment: none. Previously diagnosed with shingles on her neck and this feels similar. Rash Review of Systems Skin: Positive for rash. Objective BP 108/72 (BP Site: Left Arm, BP Position: Sitting) Pulse 72 Temp 36.3 ?C (97.3 ?F) Resp 16 Wt 108.2 kg (238 lb 8.6 oz) LMP 01/14/2012 SpO2 98% Physical Exam Constitutional: General: She is not in acute distress. Chest: Comments: 6cm x 3cm slanted T-shaped faint erythema without induration, ulceration, or vesicles on the lateral upper right breast. Neurological: Mental Status: She is alert. {ASSESSMENT/PLAN: 1. Rash - ICD9: 782.1, ICD10: R21 Not typical appearance of shingles at this stage, but it is unilateral and has paresthesia. Start - VALACYCLOVIR 1 GRAM TABLET which is more effective early in zoster; it can be discontinued if PCR swab is negative and no typical vesicular raised lesions develop. - HERPES SIMPLEX VIRUS (HSV-1 AND HSV-2) AND VARICELLA ZOSTER VIRUS (VZV), NAAT, LESION SWAB Shingles discussed. Shingles is a viral rash from prior chicken pox infection. Early antiviral medicine can reduce the length and severity of the shingles outbreak. The rash is contagious until all blisters or sores are dry. Until this avoid contact with unvaccinated (usually children under 1), or people with impaired immune systems who would be susceptible to jamie the chicken pox. The site of the rash may have scaring (color change) after the infection is resolved. Recurrent shingles rash is uncommon. The area is uncomfortable but of uncertain cause (not typical appearance of contact dermatitis, cellulitis, mastitis, or zoster). She will follow up with her PCP next week if the lesion worsens or persists. Thien Vidal MD Differential Diagnoses - rash Procedures Allergies As of Date: 06/13/2024 (No Known Allergies) Date Reviewed: 06/13/2024 Reviewed by: Ange Mathew OCCA - Fully Assessed Reason for Visit: Rash [1087] Cmt: Tingling, nerve pain, itching and warmth on the right breast, hx of shingles, no open sores, hives Primary Visit Diagnosis:Rash [R21] Order(s):valACYclovir (VALTREX) 1 gram tabletTake 1 tablet by mouth three times a day for 7 days.Disp: 21 tabletRfl: 0 HERPES SIMPLEX VIRUS (HSV-1 AND HSV-2) AND VARICELLA ZOSTER VIRUS (VZV), NAAT, LESION SWAB [SQHSVVZV] Order #: [id number] FUTURE HERPES SIMPLEX VIRUS (HSV-1 AND HSV-2) AND VARICELLA ZOSTER VIRUS (VZV), NAAT, LESION SWAB [SQHSVVZV] Order #: [id number]. #:[id number] Prescriptions as of 06/13/2024 - valACYclovir (VALTREX) 1 gram tablet Take 1 tablet by mouth three times a day for 7 days. - semaglutide (OZEMPIC SUBCUTANEOUS) Inject subcutaneously. - Benzonatate 200 mg capsule Take 1 capsule by mouth three times a day as needed. - levothyroxine (SYNTHROID) 125 mcg tablet Take 125 mcg by mouth once daily. - escitalopram oxalate (LEXAPRO) 20 mg tablet Take 20 mg by mouth once daily. - Cholecalciferol, Vitamin D3, 50 mcg (2,000 unit) cap Take by mouth. - albuterol 2.5 mg /3 mL (0.083 %) nebulizer solution Use 3 mL via nebulizer every 4 hours as needed for Wheezing/Shortness of Breath. Use over 5-15minutes. - codeine-guaiFENesin 10-100 mg/5 mL syrup Take 5-10 mL by mouth four times daily as needed for Cough. May cause drowsiness. - albuterol HFA 90 mcg/actuation inhaler Inhale 2 Puffs as instructed every 6 hours as needed for Wheezing/Shortness of Breath (cough). Problem List As Of Date 06/13/2024 Noted Resolved Tendonitis [M77.9] 10/18/2009 Leukorrhea, not specified as infective [N89.8] 12/15/2010 Unspecified noninflammatory disorder of vulva a*12/15/2010 Unspecified pruritic disorder [L29.9] 12/15/2010 Cervicitis and endocervicitis [N72] 12/15/2010 Prescriptions ordered this encounter Disp Refills Start End VALACYCLOVIR 1 GRAM TABLET 21 t* 0 06/13/2024 06/20/2024 Route: ORAL Sig: Take 1 tablet by mouth three times a day for 7 days. Level of Service: OF (more content not included)... Normal [facility] HSV+VZV DNA MICKI+probe Ql (Un sp spec)on 06-13-2024 HSV 1 DNA MICKI+probe Ql (Unsp spec) Not detected Normal Not Detected [facility] Comment on above: Order Comment: Speci men Type: SWAB Ordering Facility: [facility] Address: [address] [place] [address] Performed By: #### 3 3027-4 #### [facility] CLIA [id number] [address] [place] [address] [place] HSV 2 DNA MICKI+probe Ql (Unsp spec) Not detected Normal Not Detected [facility] Comment on above: Order Comment: Speci men Type: SWAB Ordering Facility: [facility] Address: [address] [place] [address] Performed By: #### 3 3027-4 #### [facility] CLIA [id number] [address] [place] [address] [place] VZV DNA MICKI+probe Ql (Unsp spec) Not detected Normal Not Detected [facility] Comment on above: Order Comment: Speci men Type: SWAB Ordering Facility: [facility] Address: [address] [place], [place] [id number] Performed By: #### 3 3027-4 #### [facility] CLIA [id number] [address] [place] [address] [place] [address] [place] T4 Free Directon 04-15-2024 T4 FREE DIRECT 1.30 ng/dL Normal 0.76-1.46 [facility] Comment on above: Performed By: #### L 506.0400, [id number] #### [facility] [address] [place], [place], [id number] T4 freeOrdered By: Kit Trejo on 04-15-2024 Free T4 [Mass/Vol] 1.30 ng/dL 0.76-1.46 [facility] TSH DL <= 0.005 mIU/L QnOrde red By: Kit Trejo on 04-15-2024 Thyroid Stimulating Hormone (TSH) 2.190 uIU/mL 0.300-4.200 [facility] Thyroid Stim Hormone (TSH)on 04-15-2024 TSH 2.190 uIU/mL Normal 0.300-4.200 [facility] Comment on above: Performed By: #### L 506.0400, [id number] #### [facility] [address] [place], [place], [address] CNOVon 03-05-2024 [facility] ROSY SAUL ([id number]) 1985 F Date Time Provider Department 03/05/24 6:45 PM THIEN VIDAL [facility] During your visit today, we recorded the following information about you: Temperature Pulse Respiration Blood pressure 98.3 degrees 105/minute 21/minute 110/68 Weight 113.1 kg Thien Vidal MD 03/05/2024 7:03 PM Signed Patient presents with: Cough: Nasal congestion, fever, PIERRE x 2 days HPI: Feeling sick starting 2 days ago. Positive symptoms: Cough, Nasal Congestion, Fever, Headache, some Sore throat from coughing, Sinus pressure, Negative symptoms: Shortness of breath, Wheezing, Nausea, Vomiting, Diarrhea, Body Aches, OTC: Robitussin, left over tessalon, albuterol Her family members have had a viral illnesses recently also. MEDICATIONS: Current Outpatient Medications Medication Sig semaglutide (OZEMPIC SUBCUTANEOUS) Inject subcutaneously. levothyroxine (SYNTHROID) 125 mcg tablet Take 125 mcg by mouth once daily. escitalopram oxalate (LEXAPRO) 20 mg tablet Take 20 mg by mouth once daily. Cholecalciferol, Vitamin D3, 50 mcg (2,000 unit) cap Take by mouth. Benzonatate 200 mg capsule Take 1 capsule by mouth three times a day as needed. (Patient not taking: Reported on 03/05/2024) albuterol 2.5 mg /3 mL (0.083 %) [...] No current facility-administered medications for this visit. ALLERGIES: ALLERGIES No Known Allergies VITALS: BP 110/68 Pulse 105 Temp 36.8 ?C (98.3 ?F) Resp 21 Wt 113.1 kg (249 lb 5.4 oz) LMP 01/14/2012 SpO2 99% PHYSICAL EXAM: GEN: mildly ill appearing HEENT: PERRL, EOMI, conjunctiva clear Ears: canals clear. TMs without erythema, bulge, or effusion Sinuses: non-tender frontal sinus, non-tender maxillary sinuses Throat: moist mucous membranes, mild erythema, no exudate Neck: supple, no thyromegaly, no lymphadenopathy HEART: regular rate, regular rhythm, no murmurs LUNGS: clear to auscultation, no wheezes or crackles, no increased WOB; harsh coughing ASSESSMENT/PLAN: 1. Acute cough - ICD9: 786.2, ICD10: R05.1 - suspect viral URI - Discussed supportive care treatment with rest, cold medicine, and analgesia. Declines significant breathing problems to warrant steroid and finds side effects unpleasant. Requests refill of - BENZONATATE 100 MG CAPSULE Thien Vidal MD Allergies As of Date: 03/05/2024 (No Known Allergies) Date Reviewed: 03/05/2024 Reviewed by: Esperanza Cutler MA - Fully Assessed Reason for Visit: Cough [28] Cmt: Nasal congestion, fever, PIERRE x 2 days Primary Visit Diagnosis:Acute cough [R05.1] Order(s):benzonatate (TESSALON PERLE) 100 mg capsuleTake 1 capsule by mouth every 8 hours as needed for cough for up to 15 days.Disp: 30 capsuleRfl: 0 Prescriptions as of 03/05/2024 - benzonatate (TESSALON PERLE) 100 mg capsule Take 1 capsule by mouth every 8 hours as needed for cough for up to 15 days. - semaglutide (OZEMPIC SUBCUTANEOUS) Inject subcutaneously. - Benzonatate 200 mg capsule Take 1 capsule by mouth three times a day as needed. - levothyroxine (SYNTHROID) 125 mcg tablet Take 125 mcg by mouth once daily. - escitalopram oxalate (LEXAPRO) 20 mg tablet Take 20 mg by mouth once daily. - Cholecalciferol, Vitamin D3, 50 mcg (2,000 unit) cap Take by mouth. - albuterol 2.5 mg /3 mL (0.083 %) nebulizer solution Use 3 mL via nebulizer every 4 hours as needed for Wheezing/Shortness of Breath. Use over 5-15minutes. - codeine-guaiFENesin 10-100 mg/5 mL syrup Take 5-10 mL by mouth four times daily as needed for Cough. May cause drowsiness. - albuterol HFA 90 mcg/actuation inhaler Inhale 2 Puffs as instructed every 6 hours as needed for Wheezing/Shortness of Breath (cough). Problem List As Of Date 03/05/2024 Noted Resolved Tendonitis [M77.9] 10/18/2009 Leukorrhea, not specified as infective [N89.8] 12/15/2010 Unspecified noninflammatory disorder of vulva a*12/15/2010 Unspecified pruritic disorder [L29.9] 12/15/2010 Cervicitis and endocervicitis [N72] 12/15/2010 Prescriptions ordered this encounter Disp Refills Start End BENZONATATE 100 MG CAPSULE 30 c* 0 03/05/2024 03/20/2024 Route: ORAL Sig: Take 1 capsule by mouth every 8 hours as needed for cough for up to 15 days. Level of Service: OFFICE/OUTPATIENT ESTABLISHED LOW [facility] 20 MIN [[id number]] Encounter Status:Closed by THIEN VIDAL on 03/05/24 Normal [facility] Endocrinology Visit Reporton 02-07-2024 Endocrinology Visit Report [facility] [address] [address] [facility] [address] [place] [address] OFFICE VISIT Date of Service: 02/07/24 MR#: [id number] Acct: [id number] Name: ROSY SAUL Rep #: [id number] : 1985 Provider: Nitesh Moore Age/Sex: 38/F [place] [facility] Status: Signed Intake Vital Signs 08/02/23 16:08 02/07/24 15:41 Height 5 ft 5 in 5 ft 5 in Weight: 291 lb 249 lb BMI 48.4 41.4 BP 116/80 113/74 Blood Pressure Location Lt brachial Rt brachial Position Sitting Sitting Pulse 84 84 Pulse Source Monitor Monitor Pulse Oximetry (%) 98 Oxygen Delivery Method room air Intake Visit Reasons: 6 M FU Chief Complaint: Thyroid Is patient in pain?: No Allergies No Known Allergies Allergy (Verified 02/07/24 15:42) Medications ???Medication ???Instructions ???Recorded ???Confirmed ???Type multivitamin 1 cap PO DAILY 05/01/19 02/07/24 History cholecalciferol (vitamin D3) 50 50 mcg PO DAILY 04/07/21 02/07/24 History mcg (2,000 unit) capsule escitalopram oxalate 20 mg tablet 20 mg PO DAILY #90 tabs 02/28/22 02/07/24 Rx Wegovy 0.25 mg/0.5 mL subcutaneous 0.25 mg (0.5 mL) subcut QWEEK #2 mL 08/02/23 02/07/24 Rx pen injector (semaglutide (weight loss)) levothyroxine 125 mcg tablet 125 mcg PO .qd, 1/2 on Saturday #90 12/17/23 02/07/24 Rx tabs PFSH Medical History Obesity Acute bronchitis, unspecified Anxiety and depression Vitamin deficiency Sleep concern Preventative health care Heartburn 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 She has hypothyroidism and is taking levothyroxine. She has lost weight with compounded GLP-1 medication. She is feeling well. Prior to the last adjustment we made, she was having some irritability. She felt better with dose reduction. ROS Const Constitutional: Positive for weight change; No fatigue or change in appetite Eyes Eyes: No change in vision ENT ENT: No dizziness/vertigo or difficulty swallowing Cardio Cardiology: No chest pain at rest, chest pain with exertion, shortness of breath or palpitations Musc Musculoskeletal: No abnormal gait, joint pain, numbness or tingling Neuro Neurology: No abnormal gait, memory loss, numbness or tingling Psych Psychiatric: No change in appetite, No memory loss and No Thoughts of harming yourself/Others Resp Respiratory: No cough, chest congestion or shortness of breath Gastro GI: No abdominal pain, constipation, diarrhea or difficulty swallowing Genitourinary-Female: No burning urination Skin Skin: No itchy eyes or wounds Endo Endocrine: Positive for weight change; No fatigue Aller/Imm Allergy/Immunologic: No itchy eyes Exam Const General: cooperative, healthy appearing, comfortable, [...] inspection Neck mass: No Thyroid: thyroid normal Lymphatic: no lymphadenopathy noted Chest Chest palpation inspection: normal inspection of the chest Resp Effort Inspection: normal respiratory effort, able to speak in complete sentences, symmetric chest movement, no audible wheezes and no cough Cardio Rate: regular rate Rhythm: regular rhythm Skin General: no rashes or lesions noted Neuro General: patient alert, patient awake and patient oriented x3 Cranial Nerves: CN's II-XI intact bilaterally Cognition: normal cognition Speech: speech normal Gait: normal gait Motor: muscle tone normal throughout Extrem General: no edema Psych Appearance: grossly normal Mental Status: mental status rakesh (more content not included)... Normal [facility] 12-31-2023 CNOV Office Visit ([facility] ) ROSY SAUL ([id number]) 1985 F Date Time Provider Department 12/31/23 5:45 PM ALIX SANCHEZ [facility] During your visit today, we recorded the following information about you: Temperature Pulse Respiration Blood pressure 98.2 degrees 90/minute 18/minute 120/84 Weight 116 kg Alix Sanchez PA 12/31/2023 5:54 PM Signed This note was created using [employer]. Subjective Rosy Saul is a 38 year old female. HPI 38-year-old female presents for cough, chest congestion x 1 week. Patient states she has had a cough for the past week. She states sometimes it is productive, sometimes it is dry. She has not really had nasal congestion. No fevers. No chest pain or shortness of breath. She does have history of allergy induced asthma in the past, but does not use inhalers regularly. She has been taking [id number] Mucinex and a few Tessalon Perles she had leftover. She states Tessalon Perles helped her, but Mucinex has not really helped that much. 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 PAST MEDICAL HISTORY Diagnosis Date Asthma Allergy induced asthma in the past. PAST SURGICAL HISTORY Procedure Laterality Date TONSILLECTOMY AND ADENOIDECTOMY ALLERGIES Patient has no known allergies. MEDICATIONS levothyroxine (SYNTHROID) 125 mcg tablet Take 125 mcg by mouth once daily. escitalopram oxalate (LEXAPRO) 20 mg tablet Take 20 mg by mouth once daily. Cholecalciferol, Vitamin D3, 50 mcg (2,000 unit) cap Take by mouth. semaglutide (OZEMPIC SUBCUTANEOUS) Inject subcutaneously. predniSONE (DELTASONE) 20 mg tablet Take 2 tablets by mouth once daily for 4 days. Take daily with food. Benzonatate 200 mg capsule Take 1 capsule by mouth three times a day as needed. doxycycline (VIBRA-TABS) 100 mg tablet Take 1 tablet by mouth two times a day for 7 days. albuterol 2.5 mg /3 mL (0.083 %) [...] as needed for Wheezing/Shortness of Breath (cough). FAMILY HISTORY Problem Relation Age of Onset Diabetes Paternal Grandfather other (Heart disease [Other]) Unknown Paternal family history Social History Tobacco Use Smoking status: Never Substance Use Topics Alcohol use: No Drug use: No Review of Systems Constitutional: Negative for chills and fever. HENT: Negative for congestion, ear pain and sore throat. Respiratory: Positive for cough. Negative for shortness of breath. Cardiovascular: Negative for chest pain. Gastrointestinal: Negative for diarrhea and vomiting. Objective BP 120/84 Pulse 90 Temp 36.8 ?C (98.2 ?F) Resp 18 Wt 116 kg (255 lb 11.7 oz) LMP 01/14/2012 SpO2 99% Physical Exam Vitals and nursing note reviewed. Constitutional: General: She is not in acute distress. Appearance: Normal appearance. She is not toxic-appearing. HENT: Right Ear: Tympanic membrane and ear canal normal. Left Ear: Tympanic membrane and ear canal normal. Nose: Nose normal. Mouth/Throat: Mouth: Mucous membranes are moist. Eyes: Conjunctiva/sclera: Conjunctivae normal. Cardiovascular: Rate and Rhythm: Normal rate and regular rhythm. Pulmonary: Effort: Pulmonary effort is normal. Breath sounds: Normal breath sounds. No wheezing, rhonchi or rales. Skin: General: Skin is warm and dry. Neurological: Mental Status: She is alert. Assessment and Plan ASSESSMENT/PLAN: 1. Bronchitis - ICD9: 490, ICD10: J40 -Suspect bronchitis. Rx Tessalon Perles, Rx prednisone. -Did discuss getting CXR today although lungs sound clear at this time. Patient declined, prefers to see if treatment above helps. -Did send in safety net antibiotic. If symptoms do not improve in the next 1 to 2 days, may start doxycycline. Patient agreeable. -She will follow-up if symptoms persist despite treatments. Diagnosis and treatment plan were discussed and questions were answered to the patient's satisfaction. Pt acknowledged understanding of concepts and follow up plan. Specific signs and symptoms that would indicate the need for higher level of care were discussed in detail warranting prompt ER evaluation. AXEL Tenorio Allergies As of Date: 12/31/2023 (No Known Allergies) Date Reviewed: 12/31/2023 Reviewed by: Lucia Heredia MA - Fully Assessed Reason for Visit: Cough [28] Cmt: x 1 week, some chest congestion Primary Visit Diagnosis:Bronchitis [J40] Order(s):predniSONE (DELTASONE) 20 mg tabletTake 2 tablets by mouth once daily for 4 days (more content not included)... Normal [facility] T4 Free Directon 12-16-2023 T4 FREE DIRECT 1.27 ng/dL Normal 0.76-1.46 [facility] Comment on above: Performed By: #### L [id number], L506.0400 #### [facility] Laboratory [address] [place], [address] Thyroid Stim Hormone (TSH)on 12-16-2023 TSH 0.332 uIU/mL Low 0.358-3.740 [facility] Comment on above: Performed By: #### L [id number], L506.0400 #### [facility] Laboratory [address] [place], [address] Chest PA and Lateralon 10-15 Chest PA and Lateral [facility] Imaging Services [address] [place] [address] Chest PA and Lateral MR#: [id number] Acct: [id number] Name: ROSY SAUL Rep #: [id number] : 1985 F 38 From: Onesimo Ardon MD PCP: JORGE Fiore Status: [facility] Study: Chest PA and Lateral Date of Exam: 10/16/23 Exam# [id number] Ordering Dr: Anjelica Padilla [id number] STUDY: X-RAY CHEST REASON FOR EXAM: Female, 38 years old. Cough. Evaluate for pneumonia. TECHNIQUE: Frontal and lateral views of the chest on 3 images. COMPARISON: January 06, 2018 FINDINGS: The lungs are clear and expanded. There is no demonstrated pleural abnormality. Normal size heart. Normal mediastinum and jacki. Normal visualized pulmonary arteries. Normal visualized aortic arch and descending thoracic aorta. Normal visualized thoracic spine. Normal visualized ribs, clavicles, and shoulders. No abnormality of the visualized soft tissue structures of the upper abdomen. RAD/Chest PA and Lateral IMPRESSION: No interval change. Normal chest. Electronically Signed: Onesimo Ardon MD at 15:26 EDT , CC: JORGE Padilla Radiation Engineer: Signed Normal [facility] T4 Free Directon 10-05-2023 T4 FREE DIRECT 1.20 ng/dL Normal 0.76-1.46 [facility] Comment on above: Performed By: #### L 506.0400, L501.9520 #### [facility] Laboratory [address] [place], [place], [address] Thyroid Stim Hormone (TSH)on 10-05-2023 TSH 0.485 uIU/mL Normal 0.358-3.740 [facility] Comment on above: Performed By: #### L 506.0400, L500.9820 #### [facility] Laboratory [address] [place], [place], [address] Endocrinology Visit Reporton 08-02-2023 Endocrinology Visit Report [facility] [address] [address] [place], [place] [address] OFFICE VISIT Date of Service: 08/02/23 MR#: [id number] Acct: [id number] Name: ROSY SAUL Rep #: [id number] : 1985 Provider: Nitesh Moore Age/Sex: 37/F [place] [facility] [place]: Signed Intake Vital Signs 07/27/22 15:52 08/02/23 14:25 08/02/23 16:08 Height 5 ft 5 in 5 ft 5 in 5 ft 5 in Weight: 291 lb BMI 48.4 BP 116/80 Blood Pressure Location Lt brachial Position Sitting Pulse 84 Pulse Source Monitor Intake Visit Reasons: 1 Y FU Chief Complaint: Thyroid Naval Designer Required: No Accompanied by: Self Is patient in pain?: No Allergies No Known Allergies Allergy (Verified 08/02/23 16:09) Medications ???Medication ???Instructions ???Recorded ???Confirmed ???Type multivitamin 1 cap PO DAILY 05/01/19 08/02/23 History cholecalciferol (vitamin D3) 50 50 mcg PO DAILY 04/07/21 08/02/23 History mcg (2,000 unit) capsule escitalopram oxalate 20 mg tablet 20 mg PO DAILY #90 tabs 02/28/22 08/02/23 Rx hydroxyzine HCl 25 mg tablet 25 mg PO QHS PRN anxiety #60 tabs 02/28/22 08/02/23 Rx Wegovy 0.25 mg/0.5 mL subcutaneous 0.25 mg (0.5 mL) subcut QWEEK #2 mL 08/02/23 08/02/23 Rx pen injector (semaglutide (weight loss)) levothyroxine 125 mcg tablet 125 mcg PO DAILY #90 tabs 08/02/23 08/02/23 Rx PFSH Medical History (Updated 08/05/23 @ 07:[address] 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 She has hypothyroidism and is taking levothyroxine. She is feeling fine. She is concerned about her weight and metabolic related risk factors. Exam Const General: cooperative, healthy appearing, comfortable, no acute distress, well developed and not cushingoid Nutritional Appearance: well nourished and obese Orientation: alert, awake and oriented x3 HENFL Head: normal to inspection Ears: hearing grossly normal bilaterally Nose: external nose normal Mouth: oral mucosae normal Eyes General: appearance normal, both eyes and all related structures Alignment and Position: alignment normal Periorbital: periorbital findings normal Eyelids: eyelids normal Conjunctivae: conjunctivae normal Neck Neck: normal visual inspection Neck mass: No Thyroid: thyroid normal Lymphatic: no lymphadenopathy noted Chest Chest palpation inspection: normal inspection of the chest Resp Effort Inspection: normal respiratory effort, able to speak in complete sentences, symmetric chest movement, no audible wheezes and no cough Cardio Rate: regular rate Rhythm: regular rhythm GI Inspection: normal to inspection Skin General: no rashes [...] Level of Care Code Off vis,est,level 4 Diagnoses 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 Then wait 30-60 minutes before cons (more content not included)... Normal [facility] Industrial Sales Manager Office Visit Reporton 08-02-2023 Industrial Sales Manager Office Visit Report [facility] [address] [place] [address] OFFICE VISIT Date of Service: 08/02/23 MR#: [id number] Acct: [id number] Name: ROSY SAUL Rep #: [id number] : 1985 Provider: Dr. 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) Chief Complaint: Annual Naval Designer Required: No Is patient in pain?: No Allergies No Known Allergies Allergy (Verified 08/02/23 14:21) Medications ???Medication ???Instructions ???Recorded ???Confirmed ???Type multivitamin 1 cap PO DAILY 05/01/19 08/02/23 History cholecalciferol (vitamin D3) 50 50 mcg PO DAILY 04/07/21 08/02/23 History mcg (2,000 unit) capsule escitalopram oxalate 20 mg tablet 20 mg PO DAILY #90 tabs 02/28/22 08/02/23 Rx hydroxyzine HCl 25 mg tablet 25 mg PO QHS PRN anxiety #60 tabs 02/28/22 08/02/23 Rx levothyroxine 125 mcg tablet 125 mcg PO DAILY #90 tabs 07/24/23 08/02/23 Rx Is last menstrual period known: Yes Last Menstrual Period: 07/13/23 Post menopausal: No Patient : No : No PFSH Medical History Acute bronchitis, unspecified Anxiety and depression Vitamin deficiency Sleep concern Preventative health care Heartburn 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 Date Name GA/Weeks Outcome Route Bth Weight Gen Labor Lgth Anesthesia [facility] Provider FOB Unknown Neeraj Unknown Tom HPI Encounter for routine gynecological examination Details: ROSY SAUL is a 37 year old who presents for annual exam. has some leaking of urine with coughing. Last PAP: 2022- normal with neg hpv. pt prefers q 2 year paps History of abnormal PAP: no Last mammogram: n/a History of abnormal mammogram: n/a Colon cancer screening: n/a Other preventative health care screenings: followed by pcp and by endocrinology Female Reproductive History Last Menstrual Period: 07/13/23 Coding Level of Care Code Off vis,est,prev 18-39yrs Diagnoses Encounter for routine gynecological examination Z01.419 Assessment and Plan Assessment and Plan (1) Encounter for routine gynecological examination: Plan: Cervical cancer screening: wants q2 year pap Breast cancer screening: start age 40 STD prevention and contraceptive options including their risks, benefits, and alternatives were reviewed with the patient and she chooses: vasectomy Encouraged maintenance of a healthy weight and active lifestyle and handout given. Calcium/vitamin D recommendations provided. Annual exam handout including recommendations for good health guidelines and basic screening information given. Problem list up to date, see problem list details for any additional plan information. follow up in one year for annual health maintenance exam or sooner if needed. 08/02/23 1446 Date Maryse Xavier Signature: Date (if applicable) CC: Normal [facility] Serum or plasma thyroid stim ulating hormone (TSH) measurement (units/volume)Ordered By: Noel Oconnor on 03-25-2023 TSH Qn 3.65 uIU/mL 0.358-3.74 [facility] Thin prep Papanicolaou smear with manual screeningOrdered By: Noel Oconnor on 03-25-2023 Thin prep Papanicolaou smear with manual screening 1.21 ng/dL 0.76-1.46 [facility] Absolute lymphocyte countOrd ered By: Junior Bob on 07-27-2022 Lymphocytes Auto (Unsp spec) [#/Vol] 1.33 10*3/uL 0.83-4.51 [facility] Basophil percentageOrdered B y: Juinor Lewisder on 07-27-2022 Basophils/100 WBC (Bld) 0.7 % 0-1 [facility] Bilirubin [Mass/Vol] 0.50 mg/dL 0.20-1.00 [facility] Comment on above: For patients on eltr ombopag therapy, use of Dimension [place] TBIL is not recommended. Chloride [Moles/Vol] 103 mmol/L 98-107 [facility] Cholesterol [Mass/Vol] 123 mg/dL <200 [facility] Comment on above: <200 mg/dL Desirable 200-240 mg/dL Borderline >240 mg/dL High Risk Eosinophils/100 WBC (Bld) 2.5 % 0-5 [facility] Glucose [Mass/Vol] 95 mg/dL 74-106 [facility] Neutrophils (Bld) [#/Vol] 4.6 10*3/uL 2.0-7.7 [facility] Neutrophils/100 WBC (Bld) 67.3 % 47-70 [facility] Potassium [Moles/Vol] 4.1 mmol/L 3.5-5.1 [facility] Protein [Mass/Vol] 7.4 g/dL 6.4-8.2 [facility] Sodium [Moles/Vol] 136 mmol/L 136-145 [facility] Triglyceride [Mass/Vol] 140 mg/dL <199 [facility] Comment on above: The drugs N-Acetylcy steine and Metamizole may falsely depress this assay.Serum Triglycerides Reference Interval Normal <150 mg/dL Borderline high 150 - 199 mg/dL High 200 - 499 mg/dL Very High > or = 500 mg/dL WBC (Bld) [#/Vol] 6.8 10*3/uL 4.4-11.0 [facility] Blood erythrocytes count (nu mber/volume)Ordered By: Junior Bob on 07-27-2022 RBC (Bld) [#/Vol] 4.41 10*6/uL 4.2-5.4 [facility] Blood hemoglobin measurement (mass/volume)Ordered By: Junior Bob on 07-27-2022 Hemoglobin (Bld) [Mass/Vol] 12.2 g/dL 12.0-15.0 [facility] Blood lymphocytes/100 leukoc ytesOrdered By: Junior Bob on 07-27-2022 Lymphocytes/100 WBC (Bld) 19.7 % 19-41 [facility] Blood monocytes/100 leukocyt esOrdered By: Junior Bob on 07-27-2022 Monocytes/100 WBC (Bld) 9.5 % 0-10 [facility] Blood platelet mean volumeOr dered By: Junior Bob on 07-27-2022 Platelet mean volume (Bld) [Entitic vol] 9.1 fL 6.2-12.0 [facility] Determination of erythrocyte mean corpuscular volume (MCV)Ordered By: Junior Bob on 07-27-2022 MCV (RBC) [Entitic vol] 84.8 fL 81-99 [facility] Hematocrit Auto (Bld) [Volum e fraction]Ordered By: Junior Bob on 07-27-2022 Hematocrit (Bld) [Volume fraction] 37.4 % 37-47 [facility] Laboratory - Chemistry and C hemistry - challengeOrdered By: Junior Bob on 07-27-2022 ALP [Catalytic activity/Vol] 86 U/L 45-117 [facility] ALT [Catalytic activity/Vol] 21 U/L 13-56 [facility] CO2 [Moles/Vol] 28.0 mmol/L 21.0-32.0 [facility] Cobalamin (Vitamin B12) [Mass/Vol] 490 pg/mL 211-911 [facility] Free T4 [Mass/Vol] 1.00 ng/dL 0.76-1.46 [facility] Globulin (S) [Mass/Vol] 3.8 g/dL 2.2-4.2 [facility] Urea nitrogen/Creatinine [Mass ratio] 13.9 mg/mg 10-20 [facility] Laboratory - Hematology and Cell countsOrdered By: Junior Bob on 07-27-2022 Erythrocyte distribution width (RBC) [Entitic vol] 40.7 fL 35.1-43.9 [facility] Erythrocyte distribution width (RBC) [Ratio] 13.2 % 11.6-14.6 [facility] Immature granulocytes/100 WBC (Bld) 0.300 % 0.0-0.9 [facility] Comment on above: IG% - Immature Granu locytes (promyelocytes, myelocytes and metamyelocytes) > 1% indicates that a LEFT SHIFT is Present. MCH (RBC) [Entitic mass] 27.7 pg 27.0-32.0 [facility] Nucleated RBC/100 WBC (Bld) [Ratio] 0 % 0-5 [facility] MCHC Auto (RBC) [Mass/Vol]Or dered By: Junior Bob on 07-27-2022 MCHC (RBC) [Mass/Vol] 32.6 g/dL 32-36 [facility] No Panel InformationOrdered By: Junior Bob on 07-27-2022 Estimated GFR (MDRD) Amer 118 mL/min >60 [facility] Comment on above: GFR Calc Estimated GFR (MDRD) Non-Af Amer 97 mL/min >60 [facility] Comment on above: Non- GFR Calc Thyroid Stimulating Hormone (TSH) 5.20 uIU/mL 0.358-3.74 [facility] Vitamin D 25-Hydroxy 36.7 ng/mL [facility] Comment on above: Vitamin D 25(OH) Sta tus Range Deficiency <20 ng/mL (50nmol/L) Insufficiency 20 - 30 ng/mL (50 - 75 nmol/L) Sufficiency 30 - 100 ng/mL (75 - 250 nmol/L) Toxicity >100 ng/mL (>250 nmol/L) Platelets bldOrdered By: Park Bob on 07-27-2022 Platelets (Bld) [#/Vol] 285 10*3/uL 150-450 [facility] Serum or plasma albumin jean urement (mass/volume)Ordered By: Junior Bob on 07-27-2022 Albumin [Mass/Vol] 3.6 g/dL 3.2-5.0 [facility] Serum or plasma albumin/glob ulin mass ratioOrdered By: Junior Bob on 07-27-2022 Albumin/Globulin [Mass ratio] 0.9 {ratio} 0.9-2.4 [facility] Serum or plasma calcium jean urement (mass/volume)Ordered By: Junior Bob on 07-27-2022 Calcium [Mass/Vol] 8.8 mg/dL 8.5-10.1 [facility] Serum or plasma cholesterol in HDL measurement (mass/volume)Ordered By: Junior Bob on 07-27-2022 Cholesterol in HDL [Mass/Vol] 52 mg/dL >40 [facility] Comment on above: The drugs N-Acetylcy steine and Metamizole may falsely depress this assay. Reference Range HDL <40 mg/dL Low HDL Cholesterol HDL >or= 60 mg/dL High HDL Cholesterol Serum or plasma cholesterol in VLDL measurement (mass/volume)Ordered By: Junior Bob on 07-27-2022 Cholesterol in VLDL [Mass/Vol] 28 mg/dL 5-40 [facility] Serum or plasma creatinine m easurement (mass/volume)Ordered By: Junior Bob on 07-27-2022 Creatinine [Mass/Vol] 0.72 mg/dL 0.55-1.02 [facility] Comment on above: The validity of the calculated GFR & GFRAA in patients over 70 years has not been determined. Clinical correlation is essential. Serum or plasma low density lipoprotein (LDL) cholesterol measurement (mass/volume)Ordered By: Junior Bob on 07-27-2022 Cholesterol in LDL [Mass/Vol] 43 mg/dL 0-130 [facility] Serum or plasma urea nitroge n measurement (mass/volume)Ordered By: Junior Bob on 07-27-2022 Urea nitrogen [Mass/Vol] 10 mg/dL 7-18 [facility] Thin prep Papanicolaou smear with manual screeningOrdered By: Junior Bob on 07-27-2022 Thin prep Papanicolaou smear with manual screening 14 U/L 15-37 [facility] Thin prep Papanicolaou smear with manual screening 5 5-15 [facility] No Panel Informationon 05-12 Vitamin D 25-Hydroxy 32.6 ng/mL [facility] Work Phone: Comment on above: Vitamin D 25(OH) Sta tus Range Deficiency <20 ng/mL (50nmol/L) Insufficiency 20 - 30 ng/mL (50 - 75 nmol/L) Sufficiency 30 - 100 ng/mL (75 - 250 nmol/L) Toxicity >100 ng/mL (>250 nmol/L) Absolute lymphocyte counton 04-07-2021 Lymphocytes Auto (Unsp spec) [#/Vol] 2.07 10*3/uL 0.83-4.51 [facility] Work Phone: Basophil percentageon 2021 Basophils/100 WBC (Bld) 0.7 % 0-1 [facility] Work Phone: Bilirubin [Mass/Vol] 0.40 mg/dL 0.20-1.00 [facility] Work Phone: Comment on above: For patients on eltr ombopag therapy, use of Dimension [place] TBIL is not recommended. Chloride [Moles/Vol] 106 mmol/L 98-107 [facility] Work Phone: Cholesterol [Mass/Vol] 128 mg/dL <200 [facility] Work Phone: Comment on above: <200 mg/dL Desirable 200-240 mg/dL Borderline >240 mg/dL High Risk Eosinophils/100 WBC (Bld) 2.8 % 0-5 [facility] Work Phone: Glucose [Mass/Vol] 75 mg/dL 74-106 [facility] Work Phone: Neutrophils (Bld) [#/Vol] 5.6 10*3/uL 2.0-7.7 [facility] Work Phone: Neutrophils/100 WBC (Bld) 63.4 % 47-70 [facility] Work Phone: Potassium [Moles/Vol] 3.9 mmol/L 3.5-5.1 [facility] Work Phone: Protein [Mass/Vol] 7.5 g/dL 6.4-8.2 [facility] Work Phone: Sodium [Moles/Vol] 138 mmol/L 136-145 [facility] Work Phone: Triglyceride [Mass/Vol] 172 mg/dL [facility] Work Phone: Comment on above: The drugs N-Acetylcy steine and Metamizole may falsely depress this assay.Serum Triglycerides Reference Interval Normal <150 mg/dL Borderline high 150 - 199 mg/dL High 200 - 499 mg/dL Very High > or = 500 mg/dL WBC (Bld) [#/Vol] 8.9 10*3/uL 4.4-11.0 [facility] Work Phone: Blood erythrocytes count (nu mber/volume)on 04-07-2021 RBC (Bld) [#/Vol] 4.57 10*6/uL 4.2-5.4 [facility] Work Phone: Blood hemoglobin measurement (mass/volume)on 04-07-2021 Hemoglobin (Bld) [Mass/Vol] 13.2 g/dL 12.0-15.0 [facility] Work Phone: Blood lymphocytes/100 leukoc yteson 04-07-2021 Lymphocytes/100 WBC (Bld) 23.3 % 19-41 [facility] Work Phone: Blood monocytes/100 leukocyt eson 04-07-2021 Monocytes/100 WBC (Bld) 9.6 % 0-10 [facility] Work Phone: Blood platelet mean volumeon 04-07-2021 Platelet mean volume (Bld) [Entitic vol] 9.7 fL 6.2-12.0 [facility] Work Phone: Determination of erythrocyte mean corpuscular volume (MCV)on 04-07-2021 MCV (RBC) [Entitic vol] 86.0 fL 81-99 [facility] Work Phone: Hematocrit Auto (Bld) [Volum e fraction]on 04-07-2021 Hematocrit (Bld) [Volume fraction] 39.3 % 37-47 [facility] Work Phone: Laboratory - Chemistry and C hemistry - challengeon 04-07-2021 ALP [Catalytic activity/Vol] 71 U/L 45-117 [facility] Work Phone: ALT [Catalytic activity/Vol] 21 U/L 13-56 [facility] Work Phone: CO2 [Moles/Vol] 29.0 mmol/L 21.0-32.0 [facility] Work Phone: Globulin (S) [Mass/Vol] 3.7 g/dL 2.2-4.2 [facility] Work Phone: Urea nitrogen/Creatinine [Mass ratio] 14.8 mg/mg 10-20 [facility] Work Phone: Laboratory - Hematology and Cell countson 04-07-2021 Erythrocyte distribution width (RBC) [Entitic vol] 40.2 fL 35.1-43.9 [facility] Work Phone: Erythrocyte distribution width (RBC) [Ratio] 13.0 % 11.6-14.6 [facility] Work Phone: Immature granulocytes/100 WBC (Bld) 0.200 % 0.0-0.9 [facility] Work Phone: Comment on above: IG% - Immature Granu locytes (promyelocytes, myelocytes and metamyelocytes) > 1% indicates that a LEFT SHIFT is Present. MCH (RBC) [Entitic mass] 28.9 pg 27.0-32.0 [facility] Work Phone: Nucleated RBC/100 WBC (Bld) [Ratio] 0 % 0-5 [facility] Work Phone: MCHC Auto (RBC) [Mass/Vol]on 04-07-2021 MCHC (RBC) [Mass/Vol] 33.6 g/dL 32-36 [facility] Work Phone: No Panel Informationon 04-07 Estimated GFR (MDRD) Amer 103 mL/min >60 [facility] Work Phone: Comment on above: GFR Calc Estimated GFR (MDRD) Non-Af Amer 85 mL/min >60 [facility] Work Phone: Comment on above: Non- GFR Calc Platelets bldon 04-07-2021 Platelets (Bld) [#/Vol] 323 10*3/uL 150-450 [facility] Work Phone: Serum or plasma albumin jean urement (mass/volume)on 04-07-2021 Albumin [Mass/Vol] 3.8 g/dL 3.2-5.0 [facility] Work Phone: Serum or plasma albumin/glob ulin mass ratioon 04-07-2021 Albumin/Globulin [Mass ratio] 1.0 {ratio} 0.9-2.4 [facility] Work Phone: Serum or plasma calcium jean urement (mass/volume)on 04-07-2021 Calcium [Mass/Vol] 9.2 mg/dL 8.5-10.1 [facility] Work Phone: Serum or plasma cholesterol in HDL measurement (mass/volume)on 04-07-2021 Cholesterol in HDL [Mass/Vol] 56 mg/dL [facility] Work Phone: Comment on above: The drugs N-Acetylcy steine and Metamizole may falsely depress this assay. Reference Range HDL <40 mg/dL Low HDL Cholesterol HDL >or= 60 mg/dL High HDL Cholesterol Serum or plasma cholesterol in VLDL measurement (mass/volume)on 04-07-2021 Cholesterol in VLDL [Mass/Vol] 34 mg/dL 5-40 [facility] Work Phone: Serum or plasma creatinine m easurement (mass/volume)on 04-07-2021 Creatinine [Mass/Vol] 0.81 mg/dL 0.55-1.02 [facility] Work Phone: Comment on above: The validity of the calculated GFR & GFRAA in patients over 70 years has not been determined. Clinical correlation is essential. Serum or plasma low density lipoprotein (LDL) cholesterol measurement (mass/volume)on 04-07-2021 Cholesterol in LDL [Mass/Vol] 38 mg/dL 0-130 [facility] Work Phone: Serum or plasma urea nitroge n measurement (mass/volume)on 04-07-2021 Urea nitrogen [Mass/Vol] 12 mg/dL 7-18 [facility] Work Phone: Thin prep Papanicolaou smear with manual screeningon 04-07-2021 Thin prep Papanicolaou smear with manual screening 14 U/L 15-37 [facility] Work Phone: Thin prep Papanicolaou smear with manual screening 3 5-15 [facility] Work Phone: Laboratory - Chemistry and C hemistry - challengeon 02-09-2021 Free T4 [Mass/Vol] 1.19 ng/dL 0.76-1.46 [facility] Work Phone: No Panel Informationon 02-09 Thyroid Stimulating Hormone (TSH) 2.97 uIU/mL 0.358-3.74 [facility] Work Phone: T3, FREE (TRIDOTHYRONINE) ([id number])Ordered By: Mechanical Systems Engineer on 03-11-2019 Free T3 [Mass/Vol] 3.0 pg/mL Normal 2.0-4.4 [facility]; [facility] Work Phone: Comment on above: PATIENT NOT FASTINGP ERFORMED BY: [employer]70 Alexza PharmaceuticalsCritical access hospital [id number] T4, FREE (THYROXINE) ([id number]) Ordered By: Mechanical Systems Engineer on 03-11-2019 Free T4 [Mass/Vol] 1.51 ng/dL Normal 0.82-1.77 [facility]; [facility] Work Phone: Comment on above: PATIENT NOT FASTINGP ERFORMED BY: ShopperceptionCritical access hospital [id number] TSH ([id number])Ordered By: Syste m Billing Assistant on 03-11-2019 TSH Qn 0.249 {uIU/mL} Abnormal 0.450-4.500 [facility]; [facility] Work Phone: Comment on above: PATIENT NOT FASTINGP ERFORMED BY: CB [facility] Jexaax8166 [address] RoadDublin [place] [id number] HEPATIC FUNCTION PANEL ([id number])Ordered By: Mechanical Systems Engineer on 02-10-2018 ALP [Catalytic activity/Vol] 77 U/L Normal 39-117 [facility]; [facility] Work Phone: Comment on above: PATIENT NOT FASTINGP ERFORMED BY: CB [facility] Slwqut8039 [address] RoadDublin [place] [id number] ALT [Catalytic activity/Vol] 22 U/L Normal 0-32 [facility]; [facility] Work Phone: Comment on above: PATIENT NOT FASTINGP ERFORMED BY: CB [facility] Hamaoe8041 [address] RoadDublin [place] [id number] AST [Catalytic activity/Vol] 22 U/L Normal 0-40 [facility]; [facility] Work Phone: Comment on above: PATIENT NOT FASTINGP ERFORMED BY: CB [facility] Rbcuzi3320 [address] RoadDublin [place] [id number] Bilirubin [Mass/Vol] 0.3 mg/dL Normal 0.0-1.2 [facility]; [facility] Work Phone: Comment on above: PATIENT NOT FASTINGP ERFORMED BY: CB [facility] Iplise9867 [address] RoadDublin [place] [id number] Bilirubin.direct [Mass/Vol] 0.11 mg/dL Normal 0.00-0.40 [facility]; [facility] Work Phone: Comment on above: PATIENT NOT FASTINGP ERFORMED BY: CB [facility] Vhtubk0666 [address] RoadDublin [place] [id number] Protein [Mass/Vol] 7.4 g/dL Normal 6.0-8.5 [facility]; [facility] Work Phone: Comment on above: PATIENT NOT FASTINGP ERFORMED BY: CB [facility] Yhckhq0005 [address] RoadDublin [place] [id number] RENAL FUNCTION PANEL ([id number]) Ordered By: Mechanical Systems Engineer on 02-10-2018 Albumin [Mass/Vol] 4.5 g/dL Normal 3.5-5.5 [facility]; [facility] Work Phone: Comment on above: PATIENT NOT FASTINGP ERFORMED BY: CB [facility] Cmwkqo0952 [address] RoadDublin [place] [id number] Calcium [Mass/Vol] 9.2 mg/dL Normal 8.7-10.2 [facility]; [facility] Work Phone: Comment on above: PATIENT NOT FASTINGP ERFORMED BY: CB [facility] Zqjmss2270 [address] RoadDublin [place] [id number] Chloride [Moles/Vol] 102 mmol/L Normal 96-106 [facility] rehensive Internal Medicine; [facility] Work Phone: Comment on above: PATIENT NOT FASTINGP ERFORMED BY: CB [facility] Assrft1643 [address] RoadDublin [place] [id number] CO2 [Moles/Vol] 20 mmol/L Normal 20-29 [facility]; [facility] Work Phone: Comment on above: PATIENT NOT FASTINGP ERFORMED BY: CB [facility] Zkqswf8264 [address] RoadDublin [place] [id number] Creatinine [Mass/Vol] 0.66 mg/dL Normal 0.57-1.00 [facility]; [facility] Work Phone: Comment on above: PATIENT NOT FASTINGP ERFORMED BY: CB [facility] Injjhz9219 [address] RoadDublin [place] [id number] GFR/1.73 sq M.predicted among blacks CKD-EPI (S/P/Bld) [Vol rate/Area] 135 mL/min/1.73 Normal [facility]; [facility] Work Phone: Comment on above: PATIENT NOT FASTINGP ERFORMED BY: CB [facility] Vtjgqs7092 [address]an RoadDublin [place] [id number] GFR/1.73 sq M.predicted among non-blacks CKD-EPI (S/P/Bld) [Vol rate/Area] 117 mL/min/1.73 Normal [facility]; [facility] Work Phone: Comment on above: PATIENT NOT FASTINGP ERFORMED BY: CB [facility] Phcqnt3710 [address] RoadDublin [place] [id number] Glucose [Mass/Vol] 96 mg/dL Normal 65-99 [facility]; [facility] Work Phone: Comment on above: PATIENT NOT FASTINGP ERFORMED BY: CB [facility] Ejcsqr2593 [address] Roadblin [place] [id number] Phosphate [Mass/Vol] 3.9 mg/dL Normal 2.5-4.5 [facility]; [facility] Work Phone: Comment on above: PATIENT NOT FASTINGP ERFORMED BY: CB [facility] Xspidm5884 [address] RoadCarolinaeast Medical Centerin [place] [id number] Potassium [Moles/Vol] 3.9 mmol/L Normal 3.5-5.2 [facility]; [facility] Work Phone: Comment on above: PATIENT NOT FASTINGP ERFORMED BY: CB [facility] Laglrd4535 [address] RoadDublin [place] [id number] Sodium [Moles/Vol] 142 mmol/L Normal 134-144 [facility]; [facility] Work Phone: Comment on above: PATIENT NOT FASTINGP ERFORMED BY: CB [facility] Ddlekh3148 [address] RoadDuin [place] [id number] Urea nitrogen [Mass/Vol] 13 mg/dL Normal 6-20 [facility]; [facility] Work Phone: Comment on above: PATIENT NOT FASTINGP ERFORMED BY: CB [facility] Stlpvn7501 [address] [facility]bl[facility] [place] [id number] Urea nitrogen/Creatinine [Mass ratio] 20 mg/mg Normal 9-23 [facility]; [facility] Work Phone: Comment on above: PATIENT NOT FASTINGP ERFORMED BY: YRIS [facility] Mvlmfk2680 [address] [facility]blin [place] [id number] T3, FREE (TRIDOTHYRONINE) ([id number])Ordered By: Mechanical Systems Engineer on 02-10-2018 Free T3 [Mass/Vol] 3.1 pg/mL Normal 2.0-4.4 [facility]; [facility] Work Phone: Comment on above: PATIENT NOT FASTINGP ERFORMED BY: CB [facility] Vegnzx3306 [address] [facility] [place] [id number] T4, FREE (THYROXINE) ([id number]) Ordered By: Mechanical Systems Engineer on 02-10-2018 Free T4 [Mass/Vol] 1.58 ng/dL Normal 0.82-1.77 [facility]; [facility] Work Phone: Comment on above: PATIENT NOT FASTINGP ERFORMED BY: [facility] Frnksf0933 [address] [facility] [id number] TSH (THYROID STIMULATING HOR CATERINA) ([id number])Ordered By: Mechanical Systems Engineer on 02-10-2018 TSH Qn 1.890 {uIU/mL} Normal 0.450-4.500 [facility]; [facility] Work Phone: Comment on above: PATIENT NOT FASTINGP ERFORMED BY: YRIS [facility] Ilgvrk6849 [address] [facility]in [place] [id number] CBC, Platelets & Auto Diff ( [id number])Ordered By: Mechanical Systems Engineer on 01-17-2018 Basophils (Bld) [#/Vol] 0.0 10*3/uL Normal 0.0-0.2 [facility]; [facility] Work Phone: Comment on above: PATIENT NOT FASTINGP ERFORMED BY: CB [facility] Svfcrc8532 [address] [facility]in [place] [id number] Basophils/100 WBC (Bld) 1 % Normal [facility]; [facility] Work Phone: Comment on above: PATIENT NOT FASTINGP ERFORMED BY: CB [facility] Uozfxs6024 [address] [facility]in [place] [id number] Eosinophils (Bld) [#/Vol] 0.1 10*3/uL Normal 0.0-0.4 [facility]; [facility] Work Phone: Comment on above: PATIENT NOT FASTINGP ERFORMED BY: YRIS [facility] Zcxsvs7542 [address] RoadDublin [place] [id number] Eosinophils/100 WBC (Bld) 1 % Normal [facility]; [facility] Work Phone: Comment on above: PATIENT NOT FASTINGP ERFORMED BY: CB [facility] Lkbdrx2456 [address] RoadDublin [place] [id number] Erythrocyte distribution width (RBC) [Ratio] 14.7 % Normal 12.3-15.4 [facility]; [facility] Work Phone: Comment on above: PATIENT NOT FASTINGP ERFORMED BY: CB [facility] Oclkyx9233 [address] RoadDuin [place] [id number] Hematocrit (Bld) [Volume fraction] 35.2 % Normal 34.0-46.6 [facility]; [facility] Work Phone: Comment on above: PATIENT NOT FASTINGP ERFORMED BY: CB [facility] Awmlbl3051 [address] RoadDublin [place] [id number] Hemoglobin (Bld) [Mass/Vol] 12.2 g/dL Normal 11.1-15.9 [facility]; [facility] Work Phone: Comment on above: PATIENT NOT FASTINGP ERFORMED BY: CB [facility] Lgfjuf0614 [address] RoadDublin [place] [id number] Immature granulocytes (Bld) [#/Vol] 0.0 10*3/uL Normal 0.0-0.1 [facility]; [facility] Work Phone: Comment on above: PATIENT NOT FASTINGP ERFORMED BY: CB [facility] Ugnclj2366 [address] RoadDublin [place] [id number] Immature granulocytes/100 WBC (Bld) 0 % Normal [facility]; [facility] Work Phone: Comment on above: PATIENT NOT FASTINGP ERFORMED BY: CB [facility] Gwjdtg7348 [address] RoadDublin [place] [id number] Lymphocytes (Bld) [#/Vol] 4.3 10*3/uL Abnormal 0.7-3.1 [facility]; [facility] Work Phone: Comment on above: PATIENT NOT FASTINGP ERFORMED BY: YRIS [place] Zpgwvr8034 [facility] [id number] Lymphocytes/100 WBC (Bld) 60 % Normal [facility]; [facility] Work Phone: Comment on above: Lymphocytes appear r eactive. PATIENT NOT FASTINGP ERFORMED BY: LabAsc[facility] St. [facility]6370 [facility] [id number] MCH (RBC) [Entitic mass] 27.5 pg Normal 26.6-33.0 [facility]; [facility] Work Phone: Comment on above: PATIENT NOT FASTINGP ERFORMED BY: [facility] Fnbxfy0340 [facility] [id number] MCHC (RBC) [Mass/Vol] 34.7 g/dL Normal 31.5-35.7 [facility] prehensive Internal Medicine; [facility] Work Phone: Comment on above: PATIENT NOT FASTINGP ERFORMED BY: YRIS [place] Duhxbh3288 [facility] [id number] MCV (RBC) [Entitic vol] 80 fL Normal 79-97 [facility]; [facility] Work Phone: Comment on above: PATIENT NOT FASTINGP ERFORMED BY: [facility] Qgpejx1354 [facility] [id number] Monocytes (Bld) [#/Vol] 0.8 10*3/uL Normal 0.1-0.9 [facility]; [facility] Work Phone: Comment on above: PATIENT NOT FASTINGP ERFORMED BY: [facility] Rxuzkn1248 [facility] [id number] Monocytes/100 WBC (Bld) 11 % Normal [facility]; [facility] Work Phone: Comment on above: PATIENT NOT FASTINGP ERFORMED BY: CB [facility] Dqbeti9688 [address] RoadDublin [place] [id number] Morphology Jordan (Bld) [Interp] Note: Normal [facility]; [facility] Work Phone: Comment on above: Verified by microsco pic examination. PATIENT NOT FASTINGP ERFORMED BY: CB [facility] Ouzwes9998 [address] RoadDublin [place] [id number] Neutrophils (Bld) [#/Vol] 1.9 10*3/uL Normal 1.4-7.0 [facility]; [facility] Work Phone: Comment on above: PATIENT NOT FASTINGP ERFORMED BY: CB [facility] Ykvzjn2682 [address] RoadDublin [place] [id number] Neutrophils/100 WBC (Bld) 27 % Normal [facility]; [facility] Work Phone: Comment on above: PATIENT NOT FASTINGP ERFORMED BY: CB [facility] Usxeqz3873 [address] RoadDublin [place] [id number] Platelets (Bld) [#/Vol] 258 10*3/uL Normal 150-379 [facility]; [facility] Work Phone: Comment on above: PATIENT NOT FASTINGP ERFORMED BY: CB [facility] Genfwu8803 [address] RoadDublin [place] [id number] RBC (Bld) [#/Vol] 4.43 10*6/uL Normal 3.77-5.28 Compr ehensive Internal Medicine; [facility] Work Phone: Comment on above: PATIENT NOT FASTINGP ERFORMED BY: CB [facility] Hnnkfd4185 [address] RoadDublin [place] [id number] WBC (Bld) [#/Vol] 7.2 10*3/uL Normal 3.4-10.8 Compre hensive Internal Medicine; [facility] Work Phone: Comment on above: PATIENT NOT FASTINGP ERFORMED BY: CB [facility] Qgeboe5398 [address] RoadDublin [place] [id number] Metabolic Panel, Comprehensi ve ([id number])Ordered By: Mechanical Systems Engineer on 01-17-2018 Albumin [Mass/Vol] 4.2 g/dL Normal 3.5-5.5 [facility]; [facility] Work Phone: Comment on above: PATIENT NOT FASTINGP ERFORMED BY: CB [facility] Muzptb5343 [address] RoadDublin [place] [id number] Albumin/Globulin [Mass ratio] 1.4 {ratio} Normal 1.2-2.2 [facility]; [facility] Work Phone: Comment on above: PATIENT NOT FASTINGP ERFORMED BY: CB [facility] Njfjub8435 [address] RoadDublin [place] [id number] ALP [Catalytic activity/Vol] 99 U/L Normal 39-117 [facility]; [facility] Work Phone: Comment on above: PATIENT NOT FASTINGP ERFORMED BY: CB [facility] Duuxgh2639 [address] RoadDublin [place] [id number] ALT [Catalytic activity/Vol] 45 U/L Abnormal 0-32 [facility]; [facility] Work Phone: Comment on above: PATIENT NOT FASTINGP ERFORMED BY: CB [facility] Souowe9135 [address] RoadDublin [place] [id number] AST [Catalytic activity/Vol] 34 U/L Normal 0-40 [facility]; [facility] Work Phone: Comment on above: PATIENT NOT FASTINGP ERFORMED BY: CB [facility] Qmmfoz5250 [address] RoadDublin [place] [id number] Bilirubin [Mass/Vol] 0.5 mg/dL Normal 0.0-1.2 [facility]; [facility] Work Phone: Comment on above: PATIENT NOT FASTINGP ERFORMED BY: CB [facility] Epyjjs1228 [address] RoadDublin [place] [id number] Calcium [Mass/Vol] 9.1 mg/dL Normal 8.7-10.2 [facility]; [facility] Work Phone: Comment on above: PATIENT NOT FASTINGP ERFORMED BY: CB [facility] Oypjja9490 [address] RoadDublin [place] [id number] Chloride [Moles/Vol] 99 mmol/L Normal 96-106 [facility] rehensive Internal Medicine; [facility] Work Phone: Comment on above: PATIENT NOT FASTINGP ERFORMED BY: CB [facility] Mwpmmj5161 [address] RoadDublin [place] [id number] CO2 [Moles/Vol] 24 mmol/L Normal 20-29 [facility]; [facility] Work Phone: Comment on above: PATIENT NOT FASTINGP ERFORMED BY: CB [facility] Skymze4195 [address] RoadDublin [place] [id number] Creatinine [Mass/Vol] 0.82 mg/dL Normal 0.57-1.00 [facility]; [facility] Work Phone: Comment on above: PATIENT NOT FASTINGP ERFORMED BY: CB [facility] Cefxgq3100 [address] RoadDublin [place] [id number] GFR/1.73 sq M.predicted among blacks CKD-EPI (S/P/Bld) [Vol rate/Area] 109 mL/min/1.73 Normal [facility]; [facility] Work Phone: Comment on above: PATIENT NOT FASTINGP ERFORMED BY: CB [facility] Kgiqsd8863 [address] RoadDublin [place] [id number] GFR/1.73 sq M.predicted among non-blacks CKD-EPI (S/P/Bld) [Vol rate/Area] 95 mL/min/1.73 Normal [facility]; [facility] Work Phone: Comment on above: PATIENT NOT FASTINGP ERFORMED BY: CB [facility] Iederu7271 [address] RoadDublin [place] [id number] Globulin (S) [Mass/Vol] 3.0 g/dL Normal 1.5-4.5 [facility]; [facility] Work Phone: Comment on above: PATIENT NOT FASTINGP ERFORMED BY: CB [facility] Unkhfw4408 [address] RoadDublin [place] [id number] Glucose [Mass/Vol] 80 mg/dL Normal 65-99 [facility]; [facility] Work Phone: Comment on above: PATIENT NOT FASTINGP ERFORMED BY: CB [facility] Qizcik2301 [address] RoadDublin [place] [id number] Potassium [Moles/Vol] 4.4 mmol/L Normal 3.5-5.2 [facility]; [facility] Work Phone: Comment on above: PATIENT NOT FASTINGP ERFORMED BY: CB [facility] Guqbrj7215 [address] RoadDublin [place] [id number] Protein [Mass/Vol] 7.2 g/dL Normal 6.0-8.5 [facility]; [facility] Work Phone: Comment on above: PATIENT NOT FASTINGP ERFORMED BY: CB [facility] Vkpzwp5029 [address] RoadDublin [place] [id number] Sodium [Moles/Vol] 138 mmol/L Normal 134-144 [facility]; [facility] Work Phone: Comment on above: PATIENT NOT FASTINGP ERFORMED BY: CB [facility] Javktz3843 [address] RoadDublin [place] [id number] Urea nitrogen [Mass/Vol] 11 mg/dL Normal 6-20 [facility]; [facility] Work Phone: Comment on above: PATIENT NOT FASTINGP ERFORMED BY: CB [facility] Virspk2167 [address] RoadDublin [place] [id number] Urea nitrogen/Creatinine [Mass ratio] 13 mg/mg Normal 9-23 [facility]; [facility] Work Phone: Comment on above: PATIENT NOT FASTINGP ERFORMED BY: CB [facility] Oyatoc0624 [address] RoadDublin [place] [id number] TSH (THYROID STIMULATING HOR CATERINA) ([id number])Ordered By: Mechanical Systems Engineer on 01-17-2018 TSH Qn 4.650 {uIU/mL} Abnormal 0.450-4.500 [facility]; [facility] Work Phone: Comment on above: PATIENT NOT FASTINGP ERFORMED BY: CB [facility] Ijsslv2409 [address] RoadDublin [place] [id number] MonotestOrdered By: System M lily on 01-08-2018 Monocytes Auto #/vol (Bld) Positive Abnormal [facility] Work Phone: Basic Metabolic Profile (BMP )Ordered By: Mechanical Systems Engineer on 01-06-2018 Basic metabolic 2000 panel 137 mmol/L Normal 136-145 [facility] Work Phone: Basic metabolic 2000 panel 7 1 Normal 5-15 [facility] Work Phone: Basic metabolic 2000 panel 27.0 mmol/L Normal 21.0-32.0 [facility] Work Phone: Basic metabolic 2000 panel 103 mmol/L Normal 98-107 [facility] Work Phone: Basic metabolic 2000 panel 102 mg/dL Normal 74-106 [facility] Work Phone: Comment on above: Fasting Glucose resu lt from 100 to 125 mg/dLsuggests IMPAIRED HOMEOSTASIS per A.D.A. criteria.Please note revised GLUCOSE reference range /02/2018. Basic metabolic 2000 panel 10 mg/dL Normal 7-18 [facility] Work Phone: Basic metabolic 2000 panel 0.89 mg/dL Normal 0.55-1.02 [facility] Work Phone: Comment on above: The validity of the calculated GFR AND GFRAA in patients over70 years has not been determined. Clinical correlation isessential. Basic metabolic 2000 panel 78 mL/min Normal [facility] Work Phone: Comment on above: Non- GFR Calc Basic metabolic 2000 panel 95 mL/min Normal [facility] Work Phone: Comment on above: GFR Calc Basic metabolic 2000 panel 81.66 ml/min Normal [facility] Work Phone: Basic metabolic 2000 panel 11.3 {RATIO} Normal 10-20 [facility] Work Phone: Basic metabolic 2000 panel 8.4 mg/dL Abnormal 8.5-10.1 [facility] Work Phone: Basic metabolic 2000 panel 2.9 mmol/L Abnormal 3.5-5.1 [facility] Work Phone: CBC W/Diff, AutomatedOrdered By: Mechanical Systems Engineer on 01-06-2018 Basophils/100 WBC Auto (Bld) 3.0 % Abnormal 0-1 [facility] Work Phone: Eosinophils/100 WBC Auto (Bld) 1.1 % Normal 0-5 [facility] Work Phone: Erythrocyte distribution width Auto Ratio (RBC) 13.3 % Normal 11.6-14.6 [facility] Work Phone: Hematocrit Auto Volume Fraction (Bld) 34.0 % Abnormal 37-47 [facility] Work Phone: Hemoglobin mass conc (Bld) 11.4 g/dL Abnormal 12.0-15.0 [facility] Work Phone: Lymphocytes/100 WBC Auto (Bld) 62.9 % Abnormal 19-41 [facility] Work Phone: MCH Auto Entitic mass (RBC) 27.4 pg Normal 27.0-32.0 [facility] Work Phone: MCHC Auto mass conc (RBC) 33.5 {g/gl} Normal 32-36 [facility] Work Phone: MCV Auto Entitic volume (RBC) 81.7 fL Normal 81-99 [facility] Work Phone: Monocytes/100 WBC Auto (Bld) 7.0 % Normal 0-10 [facility] Work Phone: Neutrophils/100 WBC Auto (Bld) 25.6 % Abnormal 47-70 [facility] Work Phone: Platelet mean volume Auto Entitic volume (Bld) 9.4 fL Normal 6.2-12.0 [facility] Work Phone: Platelets Auto #/vol (Bld) 173 10*3/uL Normal 150-450 [facility] Work Phone: RBC Auto #/vol (Bld) 4.16 {M/mm3} Abnormal 4.2-5.4 [facility] Work Phone: WBC Auto #/vol (Bld) 5.3 10*3/uL Normal 4.4-11.0 [facility] Work Phone: CBC W/Diff, Automated 40.3 fL Normal 35.1-43.9 [facility] Work Phone: CBC W/Diff, Automated SCANNED Normal [facility] Work Phone: CBC W/Diff, Automated 3.34 {X10_3/ul} Normal 0.83-4.51 [facility] Work Phone: CBC W/Diff, Automated 1.4 {X10_3/uL} Abnormal 2.0-7.7 [facility] Work Phone: CBC W/Diff, Automated 0.400 % Normal 0.0-0.9 [facility] Work Phone: Comment on above: IG% - Immature Granu locytes (promyelocytes, myelocytes andmetamyelocytes) > 1% indicates that a LEFT SHIFT is Present. LipaseOrdered By: System Man ager on 01-06-2018 Lipase enzyme act/vol 81 U/L Normal 73-393 [facility] Work Phone: Liver ProfileOrdered By: Arthur tem Billing Assistant on 01-06-2018 Albumin mass conc 3.7 g/dL Normal 3.2-5.0 [facility] Work Phone: ALP enzyme act/vol 139 U/L Abnormal 45-117 [facility] Work Phone: ALT enzyme act/vol 109 U/L Abnormal 13-56 [facility] Work Phone: AST enzyme act/vol 86 U/L Abnormal 15-37 [facility] Work Phone: Bilirubin mass conc 0.60 mg/dL Normal 0.20-1.00 [facility] Medicine Work Phone: Bilirubin.direct mass conc 0.19 mg/dL Normal 0.00-0.30 [facility] Work Phone: Globulin Calculated mass conc (S) 3.9 g/dL Normal 2.2-4.2 [facility] Work Phone: Protein mass conc 7.6 g/dL Normal 6.4-8.2 [facility] Work Phone: ,Serum,hCG Quali.Or dered By: Mechanical Systems Engineer on 01-06-2018 ,Serum,hCG Quali. Negative Normal 0-9 Nonpreg [facility] Work Phone: ,Serum,hCG Quali. < 1 Normal [facility] Work Phone: Urinalysis, CompleteOrdered By: Mechanical Systems Engineer on 01-06-2018 RBC Test strip #/vol (U) 0 SEEN Normal 0-5 [facility] Work Phone: Urinalysis complete panel - Urine Negative Normal [facility] Work Phone: Urinalysis complete panel - Urine Normal Normal [facility] Work Phone: Urinalysis complete panel - Urine Clear Normal [facility] Work Phone: Urinalysis complete panel - Urine Yellow Normal [facility] Work Phone: Urinalysis complete panel - Urine 0 SEEN Normal 0-5 [facility] Work Phone: Urinalysis complete panel - Urine 0-5 SEEN Normal 5-10 [facility] Work Phone: Urinalysis complete panel - Urine 7.0 1 Normal 5.0 - 8.0 [facility] Work Phone: Urinalysis complete panel - Urine 1.005 1 Normal 1.002-1.030 [facility] Work Phone: Free K6Poufpae By: Emery banda on 09-16-2017 T3 free mass conc 2.7 pg/mL Normal 2.18-3.98 [facility] Work Phone: T4 Free DirectOrdered By: Marc stem Billing Assistant on 09-16-2017 T4 free mass conc 1.26 ng/dL Normal 0.76-1.46 [facility] Work Phone: Thyroid Stim Hormone (TSH)Or dered By: Mechanical Systems Engineer on 09-16-2017 Thyrotropin Qn 2.17 {uIU/mL} Normal 0.358-3.74 [facility] Work Phone: LIPID PANEL ([id number])Ordered B y: Mechanical Systems Engineer on 09-21-2016 Cholesterol in HDL mass conc 49 mg/dL Normal [facility] Work Phone: Comment on above: PATIENT WAS FASTINGP ERFORMED BY: YRIS Contreras6370 [facility] [id number] Cholesterol in LDL mass conc 36 mg/dL Normal 0-99 [facility] Work Phone: Comment on above: PATIENT WAS FASTINGP ERFORMED BY: YRIS Contreras6370 [facility] [id number] Cholesterol in LDL/Cholesterol in HDL mass ratio 0.7 {ratio_units} Normal 0.0-3.2 [facility] Work Phone: Comment on above: LDL/HDL Ratio Men Wo men 1/2 Avg.Risk 1.0 1.5 Avg.Risk 3.6 3.2 2X Avg.Risk 6.2 5.0 3X Avg.Risk 8.0 6.1 PATIENT WAS FASTINGP ERFORMED BY: YRIS Alfarolin6370 [facility] [id number] Cholesterol in VLDL mass conc 28 mg/dL Normal 5-40 [facility] Work Phone: Comment on above: PATIENT WAS FASTINGP ERFORMED BY: YRIS Contreras6370 [facility] [id number] Cholesterol mass conc 113 mg/dL Normal 100-199 [facility] Medicine Work Phone: Comment on above: PATIENT WAS FASTINGP ERFORMED BY: YRIS Contreras6370 [facility] [id number] Triglyceride mass conc 141 mg/dL Normal 0-149 [facility] Work Phone: Comment on above: PATIENT WAS FASTINGP ERFORMED BY: YRIS Contreras6370 [facility] [id number] T3, FREE (TRIDOTHYRONINE) ([id number])Ordered By: Mechanical Systems Engineer on 09-21-2016 T3 free mass conc 3.1 pg/mL Normal 2.0-4.4 Compre[facility] Work Phone: Comment on above: PATIENT WAS FASTINGP ERFORMED BY: YRIS LabCotye [id number] [facility] [id number] T4, FREE (THYROXINE) ([id number]) Ordered By: Mechanical Systems Engineer on 09-21-2016 T4 free mass conc 1.55 ng/dL Normal 0.82-1.77 Compreh [facility] Internal Medicine Work Phone: Comment on above: PATIENT WAS FASTINGP ERFORMED BY: YRIS LabSarahi [id number] [facility] [id number] TSH ([id number])Ordered By: Joanne m Billing Assistant on 09-21-2016 Thyrotropin Qn 2.080 {uIU/mL} Normal 0.450-4.500 [facility] Work Phone: Comment on above: PATIENT WAS FASTINGP ERFORMED BY: YRIS Lawton [id number] [facility] [id number] TSHOrdered By: System Manage r on 07-14-2014 Thyrotropin Qn 0.897 {uIU/mL} Normal 0.450-4.500 [facility] Work Phone: TSH ([id number])Ordered By: Joanne m Billing Assistant on 12-01-2013 Thyrotropin Qn 1.100 {uIU/mL} Normal 0.450-4.500 [facility] Medicine Work Phone: Comment on above: do in 6 weeks; PATIE NT NOT FASTINGPERFORMED BY: YRIS LabNorthwest Evaluation Association Qaxzhi5509 [facility] [id number] Information: [id number] TSH ([id number])Ordered By: Joanne m Billing Assistant on 10-14-2013 Thyrotropin Qn 5.740 {uIU/mL} Abnormal 0.450-4.500 [facility] Work Phone: Comment on above: PATIENT NOT FASTINGP ERFORMED BY: [facility] [id number] [facility] [id number] Information: [id number] Thyrotropin Qn TSHA Normal [facility] Work Phone: Comment on above: The [employer]ocrine Societ y recommends against routine treatment forpatients with elevated TSH levels below 10.000 uIU/mL if free T4 orT4 are normal. Thyroid function should be monitored at 6 to 12month intervals. Women who are or hope to become in the near future deserve special consideration. PATIENT NOT FASTINGP ERFORMED BY: [facility] [id number] [facility] [id number] Information: [id number] TSH ([id number])Ordered By: Joanne Beasley on 06-11-2013 Thyrotropin Qn 8.220 {uIU/mL} Abnormal 0.450-4.500 Compr [facility] Internal Medicine Work Phone: Comment on above: PATIENT NOT FASTINGP ERFORMED BY: [facility] [id number] [facility] [id number] Information: [id number] Thyrotropin Qn TSHA Normal [facility] Work Phone: Comment on above: The Endocrine Societ y recommends against routine treatment forpatients with elevated TSH levels below 10.000 uIU/mL if free T4 orT4 are normal. Thyroid function should be monitored at 6 to 12month intervals. Women who are or hope to become in the near future deserve special consideration. PATIENT NOT FASTINGP ERFORMED BY: [facility] [id number] [facility] [id number] Information: [id number] PPD ([id number])Ordered By: Jules Foley on 09-23-2012 PPD ([id number]) Negative Normal [facility] Work Phone: PPD ([id number]) Negative Normal [facility]; [facility] Work Phone: Comment on above: Lot:[id number]:05/26Do se:0.1mLRoute:IdSite:l f/aGiven By:DINORAVIS signed TSHOrdered By: System Discretix r on 05-21-2012 Thyrotropin Qn 1.00 {uIU/mL} Normal 0.358-3.74 [facility] Work Phone: PPD ([id number])Ordered By: Hilda Mast on 09-19-2011 PPD ([id number]) Negative Normal [facility] Work Phone: PPD ([phone])on 09-19-2011 PPD ([id number]) Negative Normal [facility]; [facility] Work Phone: Comment on above: Lot:[id number]:08/23Do se:0.1mlRoute:IDSite:R ArmGiven By:DINORA MUGOrdered By: System Discretix r on 09-11-2011 MUG 3.44 {index} Abnormal 0.00-0.90 [facility] Work Phone: Comment on above: Negative <0.91 Equiv ocal 0.91 - 1.09 Positive >1.09 Presence of antibodies to Mumps is presumptive evidence of immunity except when active infection is suspected. PPD ([id number])Ordered By: Alda Rudolph on 09-11-2011 PPD ([id number]) Negative Normal [facility] Work Phone: PPD ([phone])on 09-11-2011 PPD ([id number]) Negative Normal [facility]; [facility] Work Phone: Comment on above: [id number], 7.13, intrad ermal L f/a noel 0.1ml RUBOrdered By: System Discretix r on 09-11-2011 RUB 44 {IU/mL} Normal [facility] Work Phone: Comment on above: Non-immune <5 Equivo belen 5 - 9 Immune >9 RUBEOGOrdered By: System Man ager on 09-11-2011 RUBEOG 2.97 {index} Abnormal 0.00-0.90 [facility] Work Phone: Comment on above: Negative <0.91 Equiv ocal 0.91 - 1.09 Positive >1.09 . Presence of antibodies to Rubeola is presumptive evidence of immunity except when active infection is suspected. VZGOrdered By: System Manage r on 09-11-2011 VZG 1.63 {index} Normal [facility] Work Phone: Comment on above: Nonimmune <0.91 Equi vocal 0.91 - 1.09 Immune >1.09 TPOOrdered By: System Manage r on 07-24-2011 TPO 277 {IU/mL} Abnormal 0-34 [facility] Work Phone: Comment on above: Please note refere nceinterval changePerformed at: [address] [id number] Director: Azalia Logan MD, Phone: [phone] TSHOrdered By: System Manage r on 07-24-2011 Thyrotropin Qn 1.34 {uIU/mL} Normal 0.358-3.74 [facility] Work Phone: TSHOrdered By: System Manage r on 06-15-2011 Thyrotropin Qn 8.83 {uIU/mL} Abnormal 0.358-3.74 [facility] Work Phone: BRAIN/HEAD W/WO CONTRASTOrde red By: Mechanical Systems Engineer on 09-10-2008 BRAIN/HEAD W/WO CONTRAST See Note Normal [facility] Work Phone: Comment on above: Exam Number: [id number] CLINICAL:22 year old female with small bump in the right occipital area. CT BRAIN WITH AND WITHOUT CONTRAST COMPARISON:None. TECHNIQUE:Transaxial imaging was performed pre-and post contrast administration. The examination was performed with intravenous administration of 50 ml of Isovue 370 contrast material. FINDINGS:There is a tiny metallic density on the skin surface of the upper right occipital region. There is a small asymmetric ovoid area of soft tissue at this level deep to the subcutaneous fat, which measures 9 x 3 mm (series 4, images 18-19). A somewhat similar ovoid structure is seen on the left side but more medially. The osseous structures are intact. The visualized paranasal sinuses and mastoid air cells are clear. Normal cerebral hemispheres, without volume loss, ventricular dilatation or cerebral edema. Normal white matter tracts of the supratentorial brain. Normal basal ganglia, and thalami. Normal brainstem, cerebellum and visualized posterior fossa structures. There is no demonstrated acute or evolving ischemic infarction. There is no intra-axial or extra-axial hemorrhage. There is no intra-axial or extra-axial mass lesion. There is normal enhancement of the dural sinuses, and cortical veins. There is normal enhancement of the [place] of [place], without a demonstrated aneurysm. IMPRESSION: No intracranial abnormality. Small ovoid soft tissue structure deep to the subcutaneous fat of the upper right occipital scalp. There is a similar area on the left side situated slightly more medially. These may represent portions of normal musculature. Reported By: ROSE MARY BRAGG M.D. Vital Signs Date Time Vital Sign Value Performing Clinician Facility 06-13-2024 09:29-0400 Body temperature 97.3 [degF] Thien Vidal MD Work Phone: [facility] 06-13-2024 09:29-0400 Body weight 108.2 kg Thien Vidal MD Work Phone: [facility] 06-13-2024 09:29-0400 Diastolic blood pressure 72 mm[Hg] Thien Vidal MD Work Phone: [facility] 06-13-2024 09:29-0400 Heart rate 72 /min Thien Vidal MD Work Phone: [facility] 06-13-2024 09:29-0400 Respiratory rate 16 /min Thien Vidal MD Work Phone: [facility] 06-13-2024 09:29-0400 SaO2% (BldA) [Mass fraction] 98 % Thien Vidal MD Work Phone: [facility] 06-13-2024 09:29-0400 Systolic blood pressure 108 mm[Hg] Thien Vidal MD Work Phone: [facility] 03-05-2024 18:40-0500 Body temperature 98.29 [degF] Thien Vidal MD Work Phone: [facility] 03-05-2024 18:40-0500 Body weight 113.1 kg Thien Vidal MD Work Phone: [facility] 03-05-2024 18:40-0500 Diastolic blood pressure 68 mm[Hg] Thien Vidal MD Work Phone: [facility] 03-05-2024 18:40-0500 Heart rate 105 /min Thien Vidal MD Work Phone: [facility] 03-05-2024 18:40-0500 Respiratory rate 21 /min Thien Vidal MD Work Phone: [facility] 03-05-2024 18:40-0500 SaO2% (BldA) [Mass fraction] 99 % Thien Vidal MD Work Phone: [facility] 03-05-2024 18:40-0500 Systolic blood pressure 110 mm[Hg] Thien iVdal MD Work Phone: [facility] 02-07-2024 15:41-0500 Body height 165.1 cm Anjelica Padilla FLUE BLOWER-C Work Phone: [facility] 02-07-2024 15:41-0500 Body mass index (BMI) [Ratio] 41.4 kg/m2 Anjelica Randy [employer]C Work Phone: [facility] 02-07-2024 15:41-0500 Body weight 112.94 kg Anjelica Dowgar [employer]C Work Phone: [facility] 02-07-2024 15:41-0500 Diastolic blood pressure 74 mm[Hg] Anjelica Randy [employer]C Work Phone: [facility] 02-07-2024 15:41-0500 Heart rate 84 /min Anjelicanicolasa Padilla [employer]-C Work Phone: [facility] 02-07-2024 15:41-0500 SaO2% (BldA) [Mass fraction] 98 % Anjelica Padilla [employer]C Work Phone: [facility] 02-07-2024 15:41-0500 Systolic blood pressure 113 mm[Hg] Anjelica Randy [employer] Work Phone: [facility] 12-31-2023 17:44-0500 Body temperature 98.2 [degF] Krislyn Aberegg PA Work Phone: [facility] 12-31-2023 17:44-0500 Body weight 116 kg Krislyn Aberegg PA Work Phone: [facility] 12-31-2023 17:44-0500 Diastolic blood pressure 84 mm[Hg] Krislyn Aberegg PA Work Phone: [facility] 12-31-2023 17:44-0500 Heart rate 90 /min Krislyn Aberegg PA Work Phone: [facility] 12-31-2023 17:44-0500 Respiratory rate 18 /min Krislyn Aberegg PA Work Phone: [facility] 12-31-2023 17:44-0500 SaO2% (BldA) [Mass fraction] 99 % Krislyn Aberegg PA Work Phone: [facility] 12-31-2023 17:44-0500 Systolic blood pressure 120 mm[Hg] Krislyn Aberegg PA Work Phone: [facility] 07-27-2022 15:52-0400 Body height 165.[address] Steven Villatoro Work Phone: [facility] 07-27-2022 15:52-0400 Body mass index (BMI) [Ratio] 47.6 kg/m2 Dr. Steven Villatoro Work Phone: [facility] 07-27-2022 15:52-0400 Body temperature 98.2 [degF] Dr. Steven Villatoro Work Phone: [facility] 07-27-2022 15:52-0400 Body weight 129.[address] Steven Villatoro Work Phone: [facility] 07-27-2022 15:52-0400 Diastolic blood pressure 74 mm[Hg] Dr. Steven Villatoro Work Phone: [facility] 07-27-2022 15:52-0400 Heart rate 79 /min Dr. Steven Villatoro Work Phone: [facility] 07-27-2022 15:52-0400 Respiratory rate 16 /min Dr. Steven Villatoro Work Phone: [facility] 07-27-2022 15:52-0400 SaO2% (BldA) [Mass fraction] 97 % Dr. Steven Villatoro Work Phone: [facility] 07-27-2022 15:52-0400 Systolic blood pressure 110 mm[Hg] Dr. Steven Villatoro Work Phone: [facility] 07-27-2022 10:09-0400 Body mass index (BMI) [Ratio] 47.7 kg/m2 Dr. Steven Villatoro Work Phone: [facility] 07-27-2022 10:09-0400 Body weight 130.[address] Steven Villatoro Work Phone: [facility] 07-27-2022 10:09-0400 Diastolic blood pressure 79 mm[Hg] Dr. Steven Villatoro Work Phone: [facility] 07-27-2022 10:09-0400 Systolic blood pressure 119 mm[Hg] Dr. Steven Villatoro Work Phone: [facility] 01-17-2022 14:03-0500 Body weight 128.55 kg Elizabeth Del Castillo APRN.CNNitesh Work Phone: [facility] 01-17-2022 14:03-0500 Diastolic blood pressure 68 mm[Hg] Elizabeth Del Castillo APRN.[facility] Work Phone: [facility] 01-17-2022 14:03-0500 Systolic blood pressure 120 mm[Hg] [facility] Work Phone: [facility] 05-12-2021 07:45-0400 Body height 165.[address] Anh Tsang Work Phone: [facility] Work Phone: 05-12-2021 07:45-0400 Body mass index (BMI) [Ratio] 42.5 kg/m2 Dr. Anh Tsang Work Phone: [facility] Work Phone: 05-12-2021 07:45-0400 Body temperature 97.3 [degF] Dr. Anh Tsang Work Phone: [facility] Work Phone: 05-12-2021 07:45-0400 Body weight 116.[address] Anh Tsang Work Phone: [facility] Work Phone: 05-12-2021 07:45-0400 Diastolic blood pressure 74 mm[Hg] Dr. Anh Tsang Work Phone: [facility] Work Phone: 05-12-2021 07:45-0400 Heart rate 81 /min Dr. Anh Tsang Work Phone: [facility] Work Phone: 05-12-2021 07:45-0400 Respiratory rate 14 /min Dr. Anh Tsang Work Phone: [facility] Work Phone: 05-12-2021 07:45-0400 SaO2% (BldA) [Mass fraction] 98 % Dr. Anh Tsang Work Phone: [facility] Work Phone: 05-12-2021 07:45-0400 Systolic blood pressure 112 mm[Hg] Dr. Anh Tsang Work Phone: [facility] Work Phone: 04-07-2021 14:00-0500 Body mass index (BMI) [Ratio] 42.5 kg/m2 Dr. Anh Tsang Work Phone: [facility] Work Phone: 04-07-2021 14:00-0500 Body temperature 95.8 [degF] Dr. Anh Tsang Work Phone: [facility] Work Phone: 04-07-2021 14:00-0500 Body weight 116.[address] Anh Tsang Work Phone: [facility] Work Phone: 04-07-2021 14:00-0500 Diastolic blood pressure 72 mm[Hg] Dr. Anh Tsang Work Phone: [facility] Work Phone: 04-07-2021 14:00-0500 Heart rate 101 /min Dr. Anh Tsang Work Phone: [facility] Work Phone: 04-07-2021 14:00-0500 Respiratory rate 16 /min Dr. Anh Tsang Work Phone: [facility] Work Phone: 04-07-2021 14:00-0500 SaO2% (BldA) [Mass fraction] 98 % Dr. Anh Tsang Work Phone: [facility] Work Phone: 04-07-2021 14:00-0500 Systolic blood pressure 128 mm[Hg] Dr. Anh Tsang Work Phone: [facility] Work Phone: 01-13-2021 08:35-0500 Body height 165.1 cm Karie Roth LPN [facility]; [facility] Work Phone: Comment on above: pt reported 01-13-2021 08:35-0500 Body mass index (BMI) [Ratio] 43.02 kg/m2 Karie Slarb UI UX ENGINEER [facility]; [facility] Work Phone: Comment on above: pt reported 01-13-2021 08:35-0500 Body surface area Derived from formula 2.21 m2 Karie Slarb UI UX ENGINEER [facility]; [facility] Work Phone: Comment on above: pt reported 01-13-2021 08:35-0500 Body weight 117.26 kg Karie Almaguerrb UI UX ENGINEER [facility]; [facility] Work Phone: Comment on above: pt reported 01-13-2021 08:35-0500 SaO2% (BldA) [Mass fraction] 97 % Karie Slarb UI UX ENGINEER [facility]; [facility] Work Phone: Comment on above: Room air pt reported 03-11-2019 12:10-0500 Body height 165.1 cm Savita Alba UI UX ENGINEER [facility]; [facility] Work Phone: 03-11-2019 12:10-0500 Body mass index (BMI) [Ratio] 43.02 kg/m2 Savita Alba UI UX ENGINEER [facility]; [facility] Work Phone: 03-11-2019 12:10-0500 Body surface area Derived from formula 2.21 m2 Savita Alba UI UX ENGINEER [facility]; [facility] Work Phone: 03-11-2019 12:10-0500 Body temperature 97.8 [degF] Savita Alba UI UX ENGINEER [facility]; [facility] Work Phone: Comment on above: Method: Temporal 03-11-2019 12:10-0500 Body weight 117.26 kg Savita Alba UI UX ENGINEER [facility]; [facility] Work Phone: 03-11-2019 12:10-0500 Diastolic blood pressure 66 mm[Hg] Savita Alba UI UX ENGINEER [facility]; [facility] Work Phone: Comment on above: Patient Position: Sitting; Cuff Location : Left Arm; Cuff Size: Standard 03-11-2019 12:10-0500 Heart rate 88 /min Savita Alba CAROLINE [facility]; [facility] Work Phone: Comment on above: Pattern: Regular 03-11-2019 12:10-0500 Respiratory rate 16 /min Savita Alba CAROLINE [facility]; [facility] Work Phone: Comment on above: Pattern: Unlabored 03-11-2019 12:10-0500 SaO2% (BldA) [Mass fraction] 98 % Savita Alba CAROLINE [facility]; [facility] Work Phone: Comment on above: Room air 03-11-2019 12:10-0500 Systolic blood pressure 124 mm[Hg] Savita Alba CAROLINE [facility]; [facility] Work Phone: Comment on above: Patient Position: Sitting; Cuff Location : Left Arm; Cuff Size: Standard 01-17-2018 11:130500 BMI (Body Mass Index) 43.47 kg/m2 Isabela Subramanian [facility] Work Phone: 01-17-2018 11:130500 Body Temperature 97.7 [degF] Isabela Subramanian [facility] Work Phone: Comment on above: Method: Temporal 01-17-2018 11:130500 Body weight 118.5 kg Isabela Subramanian [facility]; [facility] Work Phone: 01-17-2018 11:13-0500 BP Diastolic 70 mm[Hg] Isabela Subramanian [facility] Work Phone: Comment on above: Patient Position: Sitting; Cuff Location : Left Arm; Cuff Size: Standard 01-17-2018 11:13-0500 BP Systolic 118 mm[Hg] Isabela Subramanian [facility] Work Phone: Comment on above: Patient Position: Sitting; Cuff Location : Left Arm; Cuff Size: Standard 01-17-2018 11:13-0500 BSA (Body Surface Area) 2.22 m2 Isabela Subramanian [facility] Work Phone: 01-17-2018 11:13-0500 Height 165.1 cm Isabela [facility] Work Phone: 01-17-2018 11:13-0500 Pulse (Heart Rate) 98 /min Isabela Hawkinslear [facility] Work Phone: Comment on above: Pattern: Regular 01-17-2018 11:13-0500 Pulse Oximetry 97 % Anh Tsang [facility] Work Phone: Comment on above: Room air 01-17-2018 11:13-0500 Respiratory Rate 16 /min Isabela Hawkinslear [facility] Work Phone: Comment on above: Pattern: Unlabored 01-17-2018 11:13-0500 SaO2% (BldA) [Mass fraction] 97 % Isabela Moris [facility]; [facility] Work Phone: Comment on above: Room air 01-17-2018 11:13-0500 Weight 118.5 kg Anh Tsang [facility] Work Phone: 11-15-2017 14:05-0400 BMI (Body Mass Index) 44.1 kg/m2 Imelda Herrera RN [facility] Work Phone: 11-15-2017 14:05-0400 Body weight 120.2 kg Imelda Herrera RN [facility]; [facility] Work Phone: 11-15-2017 14:05-0400 BP Diastolic 78 mm[Hg] Imelda Herrera RN [facility] Work Phone: Comment on above: Patient Position: Sitting; Cuff Location : Left Arm; Cuff Size: Large 11-15-2017 14:05-0400 BP Systolic 120 mm[Hg] Imelda Herrera RN [facility] Work Phone: Comment on above: Patient Position: Sitting; Cuff Location : Left Arm; Cuff Size: Large 11-15-2017 14:05-0400 BSA (Body Surface Area) 2.23 m2 Imelda Herrera RN [facility] Work Phone: 11-15-2017 14:05-0400 Height 165.1 cm Imelda Herrera RN [facility] Work Phone: 11-15-2017 14:05-0400 Pulse (Heart Rate) 82 /min Imelda Herrera RN [facility] Work Phone: Comment on above: Pattern: Regular 11-15-2017 14:05-0400 Pulse Oximetry 98 % Anh Tsang [facility] Work Phone: Comment on above: Room air 11-15-2017 14:05-0400 Respiratory Rate 18 /min Imelda Herrera RN [facility] Work Phone: Comment on above: Pattern: Unlabored 11-15-2017 14:05-0400 SaO2% (BldA) [Mass fraction] 98 % Imelda Herrera RN [facility]; [facility] Work Phone: Comment on above: Room air 11-15-2017 14:05-0400 Weight 120.2 kg Anh Tsang [facility] Work Phone: 08-30-2017 14:44-0400 BMI (Body Mass Index) 43.83 kg/m2 Imelda Herrera RN [facility] Work Phone: 08-30-2017 14:44-0400 Body weight 119.47 kg Imelda Herrera RN [facility]; [facility] Work Phone: 08-30-2017 14:44-0400 BP Diastolic 74 mm[Hg] Imelda Herrera RN [facility] Work Phone: Comment on above: Patient Position: Sitting; Cuff Location : Left Arm; Cuff Size: Large 08-30-2017 14:44-0400 BP Systolic 126 mm[Hg] Imelda Herrera RN [facility] Work Phone: Comment on above: Patient Position: Sitting; Cuff Location : Left Arm; Cuff Size: Large 08-30-2017 14:44-0400 BSA (Body Surface Area) 2.22 m2 Imelda Herrera RN [facility] Work Phone: 08-30-2017 14:44-0400 Height 165.1 cm Imelda Herrera RN [facility] Work Phone: 08-30-2017 14:44-0400 Pulse (Heart Rate) 94 /min Imelda Herrera RN [facility] Work Phone: Comment on above: Pattern: Regular 08-30-2017 14:44-0400 Pulse Oximetry 98 % Anh Trinh [facility] Work Phone: Comment on above: Room air 08-30-2017 14:44-0400 Respiratory Rate 17 /min Imelda Herrera RN [facility] Work Phone: Comment on above: Pattern: Unlabored 08-30-2017 14:44-0400 SaO2% (BldA) [Mass fraction] 98 % Imelda Herrera RN [facility]; [facility] Work Phone: Comment on above: Room air 08-30-2017 14:44-0400 Weight 119.47 kg Anhlavelle Mannon [facility] Work Phone: 08-10-2016 14:40-0400 BMI (Body Mass Index) 44.6 kg/m2 Imelda Herrera RN [facility] Work Phone: 08-10-2016 14:40-0400 Body weight 121.56 kg Imelda Herrera RN [facility]; [facility] Work Phone: 08-10-2016 14:40-0400 BP Diastolic 76 mm[Hg] Imelda Herrera RN [facility] Work Phone: Comment on above: Patient Position: Sitting; Cuff Location : Left Arm; Cuff Size: Large 08-10-2016 14:40-0400 BP Systolic 118 mm[Hg] Imelda Herrera RN [facility] Work Phone: Comment on above: Patient Position: Sitting; Cuff Location : Left Arm; Cuff Size: Large 08-10-2016 14:40-0400 BSA (Body Surface Area) 2.24 m2 Imelda Herrera RN [facility] Work Phone: 08-10-2016 14:40-0400 Height 165.1 cm Imelda Herrera RN [facility] Work Phone: 08-10-2016 14:40-0400 Pulse (Heart Rate) 97 /min Imelda Herrera RN [facility] Work Phone: Comment on above: Pattern: Regular 08-10-2016 14:40-0400 Pulse Oximetry 98 % Anh Tsang [facility] Work Phone: Comment on above: Room air 08-10-2016 14:40-0400 Respiratory Rate 18 /min Imelda Herrera RN [facility] Work Phone: Comment on above: Pattern: Unlabored 08-10-2016 14:40-0400 SaO2% (BldA) [Mass fraction] 98 % Imelda Herrera RN [facility]; [facility] Work Phone: Comment on above: Room air 08-10-2016 14:40-0400 Weight 121.56 kg Anh Tsang [facility] Work Phone: 06-11-2013 08:59-0400 BMI (Body Mass Index) 39.48 kg/m2 Imelda Herrera RN [facility] Work Phone: 06-11-2013 08:59-0400 Body weight 107.62 kg Imelda Herrera RN [facility]; [facility] Work Phone: 06-11-2013 08:59-0400 BP Diastolic 78 mm[Hg] Imelda Herrera RN [facility] Work Phone: Comment on above: Patient Position: Sitting; Cuff Location : Left Arm; Cuff Size: Large 06-11-2013 08:59-0400 BP Systolic 118 mm[Hg] Imelda Herrera RN [facility] Work Phone: Comment on above: Patient Position: Sitting; Cuff Location : Left Arm; Cuff Size: Large 06-11-2013 08:59-0400 BSA (Body Surface Area) 2.13 m2 Imelda Herrera RN [facility] Work Phone: 06-11-2013 08:59-0400 Height 165.1 cm Imelda Herrera RN [facility] Work Phone: 06-11-2013 08:59-0400 Pulse (Heart Rate) 99 /min Imelda Herrera RN [facility] Work Phone: Comment on above: Pattern: Regular 06-11-2013 08:59-0400 Pulse Oximetry 98 % Anh Tsang [facility] Work Phone: Comment on above: Room air 06-11-2013 08:59-0400 Respiratory Rate 18 /min Imelda Herrera RN [facility] Work Phone: Comment on above: Pattern: Unlabored 06-11-2013 08:59-0400 SaO2% (BldA) [Mass fraction] 98 % Imelda Herrera RN [facility]; [facility] Work Phone: Comment on above: Room air 06-11-2013 08:59-0400 Weight 107.62 kg Anh Tsnag [facility] Work Phone: 01-28-2012 16:29-0500 BMI (Body Mass Index) 34.16 kg/m2 Anh Tsang [facility] Work Phone: 01-28-2012 16:29-0500 Body weight 93.1 kg Anh Tsang DO Work Phone: [facility]; [facility] Work Phone: 01-28-2012 16:29-0500 BP Diastolic 70 mm[Hg] Anh Tsang [facility] Work Phone: Comment on above: Patient Position: Sitting; Cuff Location : Left Arm; Cuff Size: Standard 01-28-2012 16:29-0500 BP Systolic 120 mm[Hg] Anh Tsang [facility] Work Phone: Comment on above: Patient Position: Sitting; Cuff Location : Left Arm; Cuff Size: Standard 01-28-2012 16:29-0500 BSA (Body Surface Area) 2 m2 Anh Tsang [facility] Work Phone: 01-28-2012 16:29-0500 Height 165.1 cm Anh Tsang [facility] Work Phone: 01-28-2012 16:29-0500 Pulse (Heart Rate) 106 /min Anh Tsang [facility] Work Phone: Comment on above: Pattern: Regular 01-28-2012 16:29-0500 Pulse Oximetry 96 % Anh Tsang [facility] Work Phone: Comment on above: Room air 01-28-2012 16:29-0500 Respiratory Rate 20 /min Anh Tsang [facility] Work Phone: 01-28-2012 16:29-0500 SaO2% (BldA) [Mass fraction] 96 % Anh Tsang DO Work Phone: [facility]; [facility] Work Phone: Comment on above: Room air 01-28-2012 16:29-0500 Weight 93.1 kg Anh Tsang [facility] Work Phone: 09-11-2011 14:00-0400 Body surface area Derived from formula 19.07 m2 Anh Tsang [facility] Work Phone: Comment on above: INFCE Result Units: Index Value Status o f Immunity Anti-HBs Level Inconsistent with Immunity 0.00 - 0.99 Consistent with Immunity >0.99 . An Index Value of 1.00 is equivalent to 10 mIU/mL. However the magnitude of the Index Value is not indicative of the total amount of antibody present. 09-06-2011 07:48-0400 BMI (Body Mass Index) 34.16 kg/m2 Imelda Herrera RN [facility] Work Phone: 09-06-2011 07:48-0400 Body weight 93.1 kg Imelda Herrera RN [facility]; [facility] Work Phone: 09-06-2011 07:48-0400 BP Diastolic 68 mm[Hg] Imelda Herrera RN [facility] Work Phone: Comment on above: Patient Position: Sitting; Cuff Location : Left Arm; Cuff Size: Large 09-06-2011 07:48-0400 BP Systolic 122 mm[Hg] Imelda Herrera RN [facility] Work Phone: Comment on above: Patient Position: Sitting; Cuff Location : Left Arm; Cuff Size: Large 09-06-2011 07:48-0400 BSA (Body Surface Area) 2 m2 Imelda Herrera RN [facility] Work Phone: 09-06-2011 07:48-0400 Height 165.1 cm Imelda Herrera RN [facility] Work Phone: 09-06-2011 07:48-0400 Pulse (Heart Rate) 64 /min Imelda Herrera RN [facility] Work Phone: Comment on above: Pattern: Regular 09-06-2011 07:48-0400 Respiratory Rate 20 /min Imelda Herrera RN [facility] Work Phone: Comment on above: Pattern: Unlabored 09-06-2011 07:48-0400 Weight 93.1 kg Anh Tsang [facility] Work Phone: 07-30-2011 10:15-0400 BMI (Body Mass Index) 33.51 kg/m2 Imelda Herrera RN [facility] Work Phone: 07-30-2011 10:15-0400 Body weight 91.34 kg Imelda Herrera RN [facility]; [facility] Work Phone: 07-30-2011 10:15-0400 BP Diastolic 62 mm[Hg] Imelda Herrera RN [facility] Work Phone: Comment on above: Patient Position: Sitting; Cuff Location : Left Arm; Cuff Size: Large 07-30-2011 10:15-0400 BP Systolic 118 mm[Hg] Imelda Herrera RN [facility] Work Phone: Comment on above: Patient Position: Sitting; Cuff Location : Left Arm; Cuff Size: Large 07-30-2011 10:15-0400 BSA (Body Surface Area) 1.98 m2 Imelda Herrera RN [facility] Work Phone: 07-30-2011 10:15-0400 Height 165.1 cm Imelda Herrera RN [facility] Work Phone: 07-30-2011 10:15-0400 Pulse (Heart Rate) 84 /min Imelda Herrera RN [facility] Work Phone: Comment on above: Pattern: Regular 07-30-2011 10:15-0400 Respiratory Rate 20 /min Imelda Herrera RN [facility] Work Phone: Comment on above: Pattern: Unlabored 07-30-2011 10:15-0400 Weight 91.34 kg Anh Tsang [facility] Work Phone: 06-20-2011 10:20-0400 BMI (Body Mass Index) 32.78 kg/m2 Imelda Herrera RN [facility] Work Phone: 06-20-2011 10:20-0400 Body weight 89.36 kg Imelda Herrera RN [facility]; [facility] Work Phone: 06-20-2011 10:20-0400 BP Diastolic 76 mm[Hg] Imelda Herrera RN [facility] Work Phone: Comment on above: Patient Position: Sitting; Cuff Location : Left Arm; Cuff Size: Large 06-20-2011 10:20-0400 BP Systolic 120 mm[Hg] Imelda Herrera RN [facility] Work Phone: Comment on above: Patient Position: Sitting; Cuff Location : Left Arm; Cuff Size: Large 06-20-2011 10:20-0400 BSA (Body Surface Area) 1.97 m2 Imelda Herrera RN [facility] Work Phone: 06-20-2011 10:20-0400 Height 165.1 cm Imelda Herrera RN [facility] Work Phone: 06-20-2011 10:20-0400 Pulse (Heart Rate) 80 /min Imelda Herrera RN [facility] Work Phone: Comment on above: Pattern: Regular 06-20-2011 10:20-0400 Respiratory Rate 16 /min Imelda Herrera RN [facility] Work Phone: Comment on above: Pattern: Unlabored 06-20-2011 10:20-0400 Weight 89.36 kg Anh Tsang [facility] Work Phone: 06-15-2011 08:16-0400 BMI (Body Mass Index) 32.78 kg/m2 Noel Saul RN [facility] Work Phone: 06-15-2011 08:16-0400 Body Temperature 98.2 [degF] Noel Saul RN [facility] Work Phone: Comment on above: Method: Oral 06-15-2011 08:16-0400 Body weight 89.36 kg Noel Saul RN [facility]; [facility] Work Phone: 06-15-2011 08:16-0400 BP Diastolic 74 mm[Hg] Noel Saul RN [facility] Work Phone: Comment on above: Patient Position: Sitting; Cuff Location : Left Arm; Cuff Size: Standard 06-15-2011 08:16-0400 BP Systolic 120 mm[Hg] Noel Saul RN [facility] Work Phone: Comment on above: Patient Position: Sitting; Cuff Location : Left Arm; Cuff Size: Standard 06-15-2011 08:16-0400 BSA (Body Surface Area) 1.97 m2 Noel Saul RN [facility] Work Phone: 06-15-2011 08:16-0400 Height 165.1 cm Noel Saul RN [facility] Work Phone: 06-15-2011 08:16-0400 Pulse (Heart Rate) 68 /min Noel Saul RN [facility] Work Phone: Comment on above: Pattern: Regular 06-15-2011 08:16-0400 Respiratory Rate 16 /min Noel Saul RN [facility] Work Phone: Comment on above: Pattern: Unlabored 06-15-2011 08:16-0400 Weight 89.36 kg Anh Tsang [facility] Work Phone: 09-08-2008 08:47-0400 Body Temperature 97.8 [degF] Maryse Nava [facility] Work Phone: Comment on above: Method: Undefined 09-08-2008 08:47-0400 Body weight 0 kg Maryse Nava [facility]; [facility] Work Phone: 09-08-2008 08:47-0400 BP Diastolic 76 mm[Hg] Maryse Nava [facility] Work Phone: Comment on above: Patient Position: Sitting; Cuff Location : Left Arm; Cuff Size: Standard 09-08-2008 08:47-0400 BP Systolic 112 mm[Hg] Maryse Nava [facility] Work Phone: Comment on above: Patient Position: Sitting; Cuff Location : Left Arm; Cuff Size: Standard 09-08-2008 08:47-0400 Head Circumference 0 cm Anh Tsang [facility] Work Phone: 09-08-2008 08:47-0400 Head Occipital-frontal circumference 0 cm Maryse Brandy [facility]; [facility] Work Phone: 09-08-2008 08:47-0400 Height 0 cm Maryse Brandy [facility] Work Phone: 09-08-2008 08:47-0400 Pulse (Heart Rate) 86 /min Maryse Queenkhoi [facility] Work Phone: Comment on above: Pattern: Regular 09-08-2008 08:47-0400 Respiratory Rate 16 /min Maryse Brandy [facility] Work Phone: Comment on above: Pattern: Undefined 09-08-2008 08:47-0400 Weight 0 kg Anh Tsang [facility] Work Phone: 02-20-2008 09:13-0500 Body Temperature 98.2 [degF] Imelda Herrera RN [facility] Work Phone: Comment on above: Method: Oral 02-20-2008 09:13-0500 Body weight 107.96 kg Imelda Herrera RN [facility]; [facility] Work Phone: 02-20-2008 09:13-0500 BP Diastolic 68 mm[Hg] Imelda Herrera RN [facility] Work Phone: Comment on above: Patient Position: Sitting; Cuff Location : Left Arm; Cuff Size: Standard 02-20-2008 09:13-0500 BP Systolic 118 mm[Hg] Imelda Herrera RN [facility] Work Phone: Comment on above: Patient Position: Sitting; Cuff Location : Left Arm; Cuff Size: Standard 02-20-2008 09:13-0500 Head Circumference 0 cm Anh Tsang [facility] Work Phone: 02-20-2008 09:13-0500 Head Occipital-frontal circumference 0 cm Imelda Herrera RN [facility]; [facility] Work Phone: 02-20-2008 09:13-0500 Height 0 cm Imelda Herrera RN [facility] Work Phone: 02-20-2008 09:13-0500 Pulse (Heart Rate) 60 /min Imelda Herrera RN [facility] Work Phone: Comment on above: Pattern: Regular 02-20-2008 09:13-0500 Respiratory Rate 20 /min Imelda Herrera RN [facility] Work Phone: Comment on above: Pattern: Unlabored 02-20-2008 09:13-0500 Weight 107.96 kg Anh Tsang [facility] Work Phone: 06-04-2006 14:48-0400 Body Temperature 97.7 [degF] Myriam Mansfield [facility] Work Phone: Comment on above: Method: Oral 06-04-2006 14:48-0400 Body weight 107.96 kg Myriam Mansfield [facility]; [facility] Work Phone: 06-04-2006 14:48-0400 BP Diastolic 80 mm[Hg] Myriam Mansfield [facility] Work Phone: Comment on above: Patient Position: Sitting; Cuff Location : Left Arm; Cuff Size: Large 06-04-2006 14:48-0400 BP Systolic 118 mm[Hg] Myriam Mansfield [facility] Work Phone: Comment on above: Patient Position: Sitting; Cuff Location : Left Arm; Cuff Size: Large 06-04-2006 14:48-0400 Head Circumference 0 cm Anh Tsang [facility] Work Phone: 06-04-2006 14:48-0400 Head Occipital-frontal circumference 0 cm Myriam Mansfield [facility]; [facility] Work Phone: 06-04-2006 14:48-0400 Height 0 cm Myriam Mansfield [facility] Work Phone: 06-04-2006 14:48-0400 Pulse (Heart Rate) 76 /min Myriam Mansfield [facility] Work Phone: Comment on above: Pattern: Regular 06-04-2006 14:48-0400 Respiratory Rate 20 /min Myriam Mansfield [facility] Work Phone: Comment on above: Pattern: Unlabored 06-04-2006 14:48-0400 Weight 107.96 kg Anh Tsang [facility] Work Phone: 05-07-2006 09:17-0400 Body Temperature 98.1 [degF] CLARISSE Harkisn CAROLINE [facility] Work Phone: Comment on above: Method: Oral 05-07-2006 09:17-0400 Body weight 107.96 kg CLARISSE Harkins CAR[facility]; [facility] Work Phone: 05-07-2006 09:17-0400 BP Diastolic 80 mm[Hg] CLARISSE Harkins CAROLINE [facility] Work Phone: Comment on above: Patient Position: Sitting; Cuff Location : Left Arm; Cuff Size: Large 05-07-2006 09:17-0400 BP Systolic 122 mm[Hg] CLARISSE Harkins CAROLINE [facility] Work Phone: Comment on above: Patient Position: Sitting; Cuff Location : Left Arm; Cuff Size: Large 05-07-2006 09:17-0400 Head Circumference 0 cm Anh Tsang [facility] Work Phone: 05-07-2006 09:17-0400 Head Occipital-frontal circumference 0 cm CLARISSE Harkins CAROLINE [facility]; [facility] Work Phone: 05-07-2006 09:17-0400 Height 0 cm CLARISSE Harkins CAROLINE [facility] Work Phone: 05-07-2006 09:17-0400 Pulse (Heart Rate) 74 /min CLARISSE Harkins CAR[facility]INE [facility] Work Phone: Comment on above: Pattern: Regular 05-07-2006 09:17-0400 Respiratory Rate 20 /min CLARISSE Harkins CAROLINE [facility] Work Phone: Comment on above: Pattern: Unlabored 05-07-2006 09:17-0400 Weight 107.96 kg Anh Tsang [facility] Work Phone: 03-11-2006 11:13-0500 Body Temperature 98.7 [degF] CLARISSE Harkins LPN [facility] Work Phone: Comment on above: Method: Oral 03-11-2006 11:13-0500 Body weight 108.41 kg CLARISSE Harkins LPN [facility]; [facility] Work Phone: 03-11-2006 11:13-0500 BP Diastolic 78 mm[Hg] CLARISSE Harkins LPN [facility] Work Phone: Comment on above: Patient Position: Sitting; Cuff Location : Left Arm; Cuff Size: Standard 03-11-2006 11:13-0500 BP Systolic 116 mm[Hg] CLARISSE Harkins LPN [facility] Work Phone: Comment on above: Patient Position: Sitting; Cuff Location : Left Arm; Cuff Size: Standard 03-11-2006 11:13-0500 Head Circumference 0 cm Anh Tsang [facility] Work Phone: 03-11-2006 11:13-0500 Head Occipital-frontal circumference 0 cm CLARISSE Harkins LPN [facility]; [facility] Work Phone: 03-11-2006 11:13-0500 Height 0 cm CLARISSE Harkins LPN [facility] Work Phone: 03-11-2006 11:13-0500 Pulse (Heart Rate) 100 /min CLARISSE Harkins LPN [facility] Work Phone: Comment on above: Pattern: Regular 03-11-2006 11:13-0500 Pulse Oximetry 99 % Anh Tsang [facility] Work Phone: Comment on above: Room air 03-11-2006 11:13-0500 Respiratory Rate 20 /min CLARISSE Harkins LPN [facility] Work Phone: Comment on above: Pattern: Unlabored 03-11-2006 11:13-0500 SaO2% (BldA) [Mass fraction] 99 % CLARISSE Harkins LPN [facility]; [facility] Work Phone: Comment on above: Room air 03-11-2006 11:13-0500 Weight 108.41 kg Anh Tsang [facility] Work Phone: Encounters Encounter Date Encounter Type Care Provider Facility Start: 06-14-2024 End: 06-14-2024 Follow-up encounter Alix REYNA Work Phone: [facility] Start: 06-13-2024 End: 06-13-2024 Office outpatient visit 25 minutes Thien Vidal MD Work Phone: [facility] Comment on above: Rash (Primary Dx) Start: 06-13-2024 End: 06-13-2024 ambulatory THIEN VIDAL Facility:[facility] Start: 04-15-2024 End: 04-15-2024 ambulatory Anjelica Padilla [facility] Work Phone: [facility] Work Phone: Start: 04-15-2024 End: 04-15-[address] Kit Trejo MD -Laboratory Work Phone: Start: 04-15-2024 End: 04-15-2024 ambulatory Kit Trejo Facility:[facility] Start: 03-05-2024 End: 03-05-2024 ambulatory THIEN VIDAL Facility:[facility] Start: 03-05-2024 End: 03-05-2024 Office outpatient visit 15 minutes Thien Vidal MD Work Phone: [facility] Comment on above: Acute cough (Primary Dx) Start: 02-07-2024 End: 02-07-[address] Kit Trejo MD -[facility] Work Phone: Start: 02-07-2024 End: 02-07-2024 ambulatory Anjelica Padilla Facility:[facility] Start: 12-31-2023 End: 12-31-2023 ambulatory THIEN VIDAL Facility:[facility] Start: 12-31-2023 End: 12-31-2023 Patient encounter procedure Alix REYNA Work Phone: [facility] Comment on above: Bronchitis (Primary Dx) Start: 12-16-2023 End: 12-16-[address] [facility] Facility:[facility] Start: 10-16-2023 End: 10-16-[address] [facility] Facility:[facility] Start: 10-05-2023 End: 10-05-2023 ambulatory [facility] Facility:[facility] Start: 08-02-2023 Encounter for gynecological examination (general) (routine) without abnormal findings Maryse Vickibritni Pineda [facility] Start: 08-02-2023 End: 08-02-2023 ambulatory [facility] Start: 08-02-2023 End: 08-02-2023 ambulatory [facility] Start: 03-25-2023 End: 03-25-2023 ambulatory [facility] Work Phone: Start: 03-25-2023 End: 03-25-2023 Patient encounter procedure [facility] Work Phone: Start: 07-27-2022 End: 07-27-[address] Steven Villatoro Work Phone: [facility] Start: 07-27-2022 End: 07-27-[address] Steven Villatoro Work Phone: [facility] Work Phone: Start: 07-27-2022 End: 07-27-[address] Steven Villatoro Work Phone: [facility] Start: 01-17-2022 End: 01-17-2022 Patient encounter procedure Elizabeth Del Castillo APRN.CNM Work Phone: OB/Gynecology Comment on above: Breast pain, left (P rimary Dx) Start: 05-12-2021 End: 05-12-[address] Anh Tsang Work Phone: [facility], [facility] Start: 04-07-[address] Michael Tsang Work Phone: [facility] Start: 04-07-2021 End: 04-07-2021 Encounter for general adult medical examination without abnormal findings Dr. Anh Tsang Work Phone: [facility] Internal Medicine Start: 04-07-2021 End: 04-07-[address] Anh Tsang Work Phone: [facility] Start: 02-09-[address] Anh Tsang Work Phone: [facility] Start: 01-13-2021 End: 01-13-2021 Office outpatient visit 25 minutes Anh Tsang DO Work Phone: [facility] Start: 04-02-2019 End: 04-02-2019 Postop follow up visit related to original px Anh Tsang DO Work Phone: [facility] Start: 03-12-2019 End: 03-12-2019 Phone Encounter Anh Tsang DO Work Phone: [facility] Start: 03-11-2019 End: 03-11-2019 Office outpatient visit 25 minutes Anh Tsang DO Work Phone: [facility] Start: 01-20-2018 End: 01-20-2018 Annotation/Addendum Anh Tsang DO Work Phone: [facility] Start: 01-17-2018 End: 01-17-2018 Office outpatient visit 15 minutes Anh Tsang [facility] Start: 11-15-2017 End: 11-15-2017 Office outpatient visit 10 minutes Anh Tsang [facility] Start: 08-30-2017 End: 08-30-2017 Office outpatient visit 15 minutes Anh Tsang [facility] Start: 04-30-2017 End: 04-30-2017 Phone Encounter Anh Tasng [facility] Start: 08-10-2016 End: 08-10-2016 Office outpatient visit 15 minutes Anh Tsang [facility] Start: 07-14-2014 End: 07-14-2014 Phone Encounter Anh Tsang [facility] Start: 10-19-2013 End: 10-19-2013 Phone Encounter Anh Tsang [facility] Start: 06-12-2013 End: 06-12-2013 Phone Encounter Anh Tsang [facility] Start: 06-11-2013 End: 06-11-2013 Patient encounter procedure Anh Tsang [facility] Start: 10-02-2012 End: 10-05-2012 Patient encounter procedure Anh Tsang [facility] Start: 09-23-2012 End: 09-25-2012 Patient encounter procedure Anh Tsang [facility] Start: 01-29-2012 End: 01-29-2012 Annotation/Addendum Anhlavelle Tsang [facility] Start: 01-28-2012 End: 01-28-2012 Phone Encounter Anh Tsang [facility] Start: 01-28-2012 End: 01-28-2012 Office outpatient visit 25 minutes Anh Tsang [facility] Start: 09-19-2011 End: 09-19-2011 Patient encounter procedure Anh Trinh [facility] Start: 09-11-2011 End: 09-11-2011 Patient encounter procedure Anhlavelle Mannon [facility] Start: 09-06-2011 End: 09-06-2011 Patient encounter procedure Anhlavelle Mannon [facility] Start: 07-30-2011 End: 07-30-2011 Patient encounter procedure Anhlavelle Mannon [facility] Start: 06-20-2011 End: 06-20-2011 Patient encounter procedure Anh Trinh [facility] Start: 06-15-2011 End: 06-15-2011 Patient encounter procedure Anh Tsang [facility] Start: 09-08-2008 End: 09-08-2008 Patient encounter procedure Anh Trinh [facility] Start: 02-20-2008 End: 02-20-2008 Patient encounter procedure Anh Tsang [facility] Start: 06-04-2006 End: 06-04-2006 Patient encounter procedure Anh Tsang [facility] Start: 05-07-2006 End: 05-07-2006 Patient encounter procedure Anh Trinh [facility] Start: 03-14-2006 End: 03-14-2006 Office outpatient visit 5 minutes Anh Tsang [facility] Start: 03-11-2006 End: 03-11-2006 Office outpatient visit 15 minutes Anh Tsang [facility] Start: 01-07-2006 End: 01-07-2006 Historical Summary Anh Tsang [facility] Start: 01-01-2006 End: 01-01-2006 Patient encounter procedure Anhlavelle Tsang [facility] Procedures Date Procedure Procedure Detail Performing Clinician Start: 01-07-2021 End: 01-07-2021 Urgent Care Visit Report Comments: See Note; NOTES: [facility] [address] [place] [address] [address] [place] [address] OFFICE VISIT Date of Service: 01/07/21 MR#: [id number] Acct: [id number] Name: ROSY SAUL Rep #: [id number] : 1985 Provider: AXEL dennison Age/Sex: 35/F Location: [facility] Status: Signed Intake Vital Signs 01/07/21 11:20 [...] Days #21 tab 01/07/21 [Rx Confirmed 01/07/21] [facility] Medical History Heartburn 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 [place] [address] OFFICE VISIT Date of Service: 07/29/20 MR#: [id number] Acct: [id number] Name: ROSY SAUL Rep #: [id number] : 1985 Provider: Nitesh Moore Age/Sex: 34/F [place] [facility] [place]: Signed Intake Vital Signs 07/29/20 14:37 07/29/20 14:40 Height 5 ft 6 in Weight: 253 lb 8 oz BMI 40.8 46.4 BP 120/80 Blood Pressure Location Lt brachial Position Sitting Respiration 16 Pulse 89 Pulse Source Monitor Temp 96.5 F L Temp Source Temporal Pulse Oximetry (%) 98 Oxygen Delivery Method room air Intake Visit Reasons: 1 Y FU Chief Complaint: Hypothyroidism Naval Designer Required: No Accompanied by: None Is patient in pain?: No Allergies No Known Allergies Allergy (Verified 07/29/20 14:40) [facility] Medical History Heartburn 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 Anh Tsang, DO Anh Tsang DO Work Phone: Start: 05-04-2019 End: 05-04-2019 Endocrinology Visit Report Comments: See Note; NOTES: [facility] [address] [place] [address] OFFICE VISIT Date of Service: 05/01/19 MR#: [id number] Acct: [id number] Name: ROSY SAUL Rep #: [id number] : 1985 Provider: Kit Trejo MD Age/Sex: 33/F [place] [facility] Status: Signed Intake Vital Signs05/01/19 Height 5 [...] multivitamin 1 cap PO DAILY 05/01/19 [History] [facility] Medical History (Updated 05/04/19 @ 09:48 by [...] never HPI HPI Chief Complaint: Hypothyroidism Details: ROSY SAUL, is a 33 F who presents [...] End: 03-30-2019 Gallbladder Comments: See Note; NOTES: [facility] Imaging Services [address] [place] [address] Gallbladder MR#: [id number] Acct: [id number] Name: ROSY SAUL Rep #: [id number] : 1985 F 33 From: Eliud Hart MD PCP: Anh Tsang DO Status: REG CLI Study: Gallbladder Date of Exam: 03/30/19 Exam# [id number] Ordering Dr: Anh Tsang DO STUDY: ABDOMINAL [...] Service support , CC: Anh Tsang DO Radiation Engineer: Signed Anh Tsang DO Work Phone: Start: 03-30-2019 End: 03-31-2019 Thyroid Comments: See Note; NOTES: [facility] Imaging Services [address] [place] [address] Thyroid MR#: [id number] Acct: [id number] Name: KGROSY MARTINEZ Rep #: [id number] : 1985 F 33 From: Bebo Muñoz DO PCP: Anh Tsang DO Status: REG CLI Study: Thyroid Date of Exam: 03/30/19 Exam# [id number] Ordering Dr: Anh Tsang DO STUDY: THYROID [...] Service support , CC: Anh Tsang DO Radiation Engineer: Signed Anh Tsang DO Work Phone: Start: 01-20-2019 End: 01-20-2019 History and Physical Exam Comments: See Note; NOTES: [facility] Medical Records Department [address] [place] [address] History and Physical 01/19/19 0835 MR#: [id number] Acct: [id number] Name: ROSY SAUL Rep #: [id number] : 1985 33 From: Cheryle Guzman MD [...] 1. T and A, as child 2. Simms teeth removed at age 17 3. 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 Illicit Drug Use - denies use of street drugs Sexual Activity - Residence - lives with Place of - [place], [place] Hours Worked - 30 Spouse-Sig Other Name - Sahil Saul Spouse-Sig Other Occupation - [employer] Spouse-Sig Other Phone No - [phone] Children Name(s) - Neeraj Control - Allergies: [...] Non Returning Pt Comments: See Note; NOTES: [facility] Occupational [facility] [address] [place] [address] [address] [place] [address] / REHABILITATION SERVICES DISCHARGE SUMMARY MR#: [id number] Acct: [id number] Name: ROSY SAUL Rep #: [id number] : 1985 32 From: Liz Blanco OTR/L, CHT Referring DrDesirae: Olivia Hanks MD Status: REG RCR Eval Date: Discharge Date: HP - Discharge Summary - Patient Information ROSY SAUL was seen in my office for [...] appropriate by the physician. Thank you! Liz Blanco, OTR/L, CHT <Electronically signed by Liz Blanco OTR/Claudine CHT> 04/08/18 3022 CC: Olivia Hanks MD; Anh Tsang DO MK Signed Anh Tsang DO Work Phone: Start: 01-08-2018 End: 01-08-2018 Discharge Instruction Comments: See Note; NOTES: [facility] Medical Records Department [address] [place] [address] Discharge Instruction 01/08/18208 MR#: [id number] Acct: [id number] Name: ROSY SAUL Usman Rep #: [id number] : 1985 32 From: Ariel Mayberry MD [...] problems, contact your Primary Care Provider. Call [employer] [facility] ([phone]) or report to the closest Emergency Room. Call 911 if necessary. 01/08/18208 <Electronically signed by Ariel Mayberry MD> Date Ariel Mayberry MD Cosigner Signature (If Indicated): Date CC: Anh Tsang DO Anh Trinh Start: 01-08-2018 End: 01-08-2018 Emergency Department Summary Comments: See Note; NOTES: [facility] Medical Records Department [address] [place] [address] Emergency Department Summary 01/08/18 0142 MR#: [id number] Acct: [id number] Name: ROSY SAUL Rep #: [id number] : 1985 32 From: Ariel Mayberry MD [...] due to body habitus Alert Test Results: Tillman screen is positive. Emergency Department Course and Treatment: Tillman screen was positive. Gqozs-sm-picw bedside ultrasound showed no free fluid to suggest splenic rupture. She was advised on supportive care. She will follow-up with her primary care physician. She understands return for new or worsening symptoms and was discharged. Treatment Plan: [] Disposition: Discharge Impression: Mononucleosis This note was generated with [employer] software. It may contain incorrect words, spelling, [...] your Primary Care Provider. Call [facility] ([phone]) or report to the closest Emergency Room. Call 911 if necessary. 01/08/18 0209 <Electronically signed by Ariel Mayberry MD> Date Ariel Mayberry MD Cosigner Signature (If Indicated): Date CC: Anh Pleitez Start: 01-07-2018 End: 01-07-2018 Emergency Department Summary Comments: See Note; NOTES: [facility] Medical Records Department [address] [place] [address] Emergency Department Summary 01/06/18 2150 MR#: [id number] Acct: [id number] Name: ROSY SAUL Rep #: [id number] : 1985 32 From: Maryse Vazquez MD [...] 3. Hypokalemia This note was generated with [employer] dictation software. It may contain incorrect words, [...] problems, contact your Primary Care Provider. Call [employer] [employer] [facility] ([phone]) or report to the closest Emergency Room. Call 911 if necessary. 01/07/18 0027 <Electronically signed by Maryse Vazquez MD> Date Maryse Vazquez MD Cosigner Signature (If Indicated): Date CC: Anh Pleitez Start: 01-07-2018 End: 01-07-2018 Discharge Instruction Comments: See Note; NOTES: [facility] Medical Records Department [address] [place] [address] Discharge Instruction 01/07/18 0009 MR#: [id number] Acct: [id number] Name: ROSY SAUL Rep #: [id number] : 1985 32 From: Maryse Vazquez MD [...] your Primary Care Provider. Call [facility] ([phone]) or report to the closest Emergency Room. Call 911 if necessary. 01/07/18 0010 <Electronically signed by Maryse Vazquez MD> Date Maryse Vazquez MD Cosigner Signature (If Indicated): Date CC: Anh Pleitez Start: 01-06-2018 End: 01-06-2018 Abdomen/Pelvis without Cont Comments: See Note; NOTES: [facility] Imaging Services [address] [place] [address] Abdomen/Pelvis without Cont MR#: [id number] Acct: [id number] Name: ROSY SAUL Rep #: [id number] : 1985 F 32 From: Gali Parks MD PCP: Anh Tsang DO Status: REG ER Study: Abdomen/Pelvis without Cont Date of Exam: 01/06/18 Exam# [id number] Ordering Dr: Maryse Vazquez MD STUDY: CT [...] CC: Maryse Vazquez MD; Anh Tsang DO Radiation Engineer: Signed Anh Tsang Start: 01-06-2018 End: 01-06-2018 Urgent Care Visit Report Comments: See Note; NOTES: [facility] [address] [place] [address] OFFICE VISIT Date of Service: 01/06/18 MR#: [id number] Acct: [id number] Name: ROSY SAUL Rep #: [id number] : 1985 Provider: Jassi REYNA Age/Sex: 32/F Location: [facility] Status: Signed Intake Vital Signs01/06/18 Height 5 ft 5 in Intake Visit Reasons: PAIN IN LEFT SIDE Chief Complaint: Pain in left side Naval Designer Required: No Accompanied by: self Is patient [...] Chief Complaint: Pain in left side Details: ROSY SAUL, is a 32 F who presents [...] the above. This note was generated with [employer] software. It may contain incorrect words, spelling, and punctuation that were not noted in checking the note before signing. Orders Orders: Coding Level of Care Code Off vis,new,level 4 Diagnoses Costochondritis M94.0 01/06/18 1344 <Electronically signed by Jassi REYNA> Date Jassi REYNA Cosigner Signature: Date (if applicable) CC: Anh Tsang Start: 01-06-2018 End: 01-06-2018 Chest PA and Lateral Comments: See Note; NOTES: [facility] Imaging Services [address] [place] [address] Chest PA and Lateral MR#: [id number] Acct: [id number] Name: ROSY SAUL Rep #: [id number] : 1985 F 32 From: Eliud Hart MD PCP: Anh Tsang DO Status: [facility] CLI Study: Chest PA and Lateral Date of Exam: 01/06/18 Exam# [id number] Ordering Dr: Jassi Paniagua STUDY: X-RAY CHEST [...] Eliud Hart MD at 13:05 EST Tel [phone], Service support , CC: Anh Tsang DO; Jassi REYNA Radiation Engineer: Signed Marleny Smallwood Work Phone: Start: 12-24-2017 End: 12-24-2017 OT General Evaluation Comments: See Note; NOTES: [facility] Occupational Therapy [facility] [address] [place] [address] Fax REHABILITATION SERVICES INITIAL EVALUATION MR#: [id number] Acct: [id number] Name: ROSY SAUL Rep #: [id number] : 1985 32 From: Liz GRANDA/MELVI Chow Referring Dr.: Olivia Hanks MD Status: REG R Insurance: [facility] Date: SELF PAY INSURANCE Patient's Visit Information ROSY SAUL is a 32 year old F, [...] scale for touching 5th digit - [employer] Director: 99# in R and 95 # in [...] to be FAXED BACK to us at [phone] for Medicare purposes. Please let me know [...] 07-26-2017 Discharge Instruction Comments: See Note; NOTES: [facility] Medical Records Department [address] [place] [address] Discharge Instruction 07/25/17 1842 MR#: [id number] Acct: [id number] Name: ROSY SAUL Rep #: [id number] : 1985 31 From: Alex Winn MD [...] your Primary Care Provider. Call [facility] ([phone]) or report to the closest Emergency Room. Call 911 if necessary. 07/26/17 0044 <Electronically signed by Alex Winn MD> Date Alex Winn MD Cosigner Signature (If Indicated): Date CC: Anh Dolaneen Trinh Start: 07-26-2017 End: 07-26-2017 Emergency Department Summary Comments: See Note; NOTES: [facility] Medical Records Department [address] [place] [address] Emergency Department Summary 07/25/17 1840 MR#: [id number] Acct: [id number] Name: ROSY SAUL Rep #: [id number] : 1985 31 From: Alex Winn MD [...] using [employer] This note was generated with [employer] software. It may contain incorrect words, spelling, [...] your Primary Care Provider. Call [facility] ([phone]) or report to the closest Emergency Room. Call 911 if necessary. 07/26/17 0044 <Electronically signed by Alex Winn MD> Date Alex Winn MD Cosigner Signature (If Indicated): Date CC: Anh Tsang DO Anh Tsang Start: 07-04-2015 End: 07-04-2015 Section - 1 Imelda Herrera H/O: surgery Tonsillectomy Karie BLACK Plan of Treatment Date Care Activity Detail Author Start: 11-14-2028 Urine microalbumin profile DTaP,Tdap,Td Vaccine (2 - Td or Tdap) [facility] Start: 06-13-2024 End: 09-12-2024 Herpes simplex virus+Varicella zoster virus DNA [Presence] in Unspecified specimen by MICKI with probe detection HERPES SIMPLEX VIRUS (HSV-1 & HSV-2) AND VARICELLA ZOSTER VIRUS (VZV), NAAT, LESION SWAB Lab Routine Rash Expected: 06/13/2024, Expires: 09/12/2024 [facility] Work Phone: Comment on above: Expected: 06/13/2024, Expires: Start: 10-13-2023 Covid-19 Vaccine () Covid-19 Vaccine () [facility] Start: 07-27-2022 Liquid based cervical cytology screening [facility] Start: 02-11-2021 DEPRESSION ASSESSMENT DEPRESSION ASSESSMENT [facility] Start: 01-13-2021 Procedure Education Eprescribed prescriptions (G8553) [facility]; [facility] Work Phone: Start: 01-13-2021 Provider Instructions for Treatment Continue Current Prescription(s) [facility]; [facility] Work Phone: Start: 03-12-2019 Assay of thyroid stimulating hormone tsh TSH (76039) [facility]; [facility] Work Phone: Start: 03-12-2019 Assay of free thyroxine T4, FREE (THYROXINE) (97805) [facility]; [facility] Work Phone: Start: 03-12-2019 Assay of triiodothyronine t3 free T3, FREE (TRIDOTHYRONINE) (24270) [facility]; [facility] Work [...] 01-17-2018 Hepatic function panel HEPATIC FUNCTION PANEL (52180) [facility] Work Phone: Start: 01-17-2018 Thyrotropin Qn TSH (THYROID STIMULATING HORMONE) (66247) [facility] Work Phone: Start: 01-17-2018 Blood count complete auto&auto difrntl wbc CBC, Platelets & Auto Diff (60577) [facility] Work Phone: Start: 01-17-2018 Comprehensive metabolic panel Metabolic Panel, Comprehensive (92239) [facility] Work Phone: Start: 08-30-2017 Assay of thyroid stimulating hormone tsh TSH (42321) [facility]; [facility] Work Phone: Start: 08-30-2017 Thyrotropin Qn TSH (75035) [facility] Work Phone: Start: 08-30-2017 Assay of free thyroxine T4, FREE (THYROXINE) (60456) [facility]; [facility] Work Phone: Start: 08-30-2017 T4 free mass conc T4, FREE (THYROXINE) (89093) [facility] Work Phone: Start: 08-30-2017 Assay of triiodothyronine t3 free T3, FREE (TRIDOTHYRONINE) (92991) [facility]; [facility] Work Phone: Start: 08-30-2017 T3 free mass conc T3, FREE (TRIDOTHYRONINE) (45595) [facility] Work Phone: Start: 08-30-2017 Provider Instructions for Treatment GERD Education [facility]; [facility] Work Phone: Start: 08-10-2016 Provider Instructions for Treatment [facility]; [facility] Work Phone: Start: 09-29-2015 HPV TESTING HPV TESTING [facility] Start: 07-14-2014 Assay of thyroid stimulating hormone tsh TSH (81694) [facility]; [facility] Work Phone: Start: 07-14-2014 Thyrotropin Qn TSH (85102) [facility] Work Phone: Start: 10-02-2012 Skin test tuberculosis intradermal PPD (16215) [facility] Work Phone: Comment on above: lot: [id number]: 05/26site/route: R forear m/ intradermalamt: 0.1mLVIS signed when applicable:ANNA Delgado Start: 01-28-2012 Provider Instructions for Treatment Follow up if no improvement or if symptoms worsen [facility]; [facility] Work Phone: Start: 11-29-2011 Assay of thyroid stimulating hormone tsh TSH (00655) [facility]; [facility] Work Phone: Start: 11-29-2011 Thyrotropin Qn TSH (58130) [facility] Work Phone: Start: 09-06-2011 Skin test tuberculosis intradermal SKIN TEST INTRADERMAL TB (88361) [facility] Work Phone: Comment on above: patient will return for nurse visit [facility] e cant be read Sat or Saturday Start: 09-06-2011 Hepatitis b surf antibody hbsab HEPATITIS B SURFACE ANTIBODY (57181) [facility] Work Phone: Start: 09-06-2011 Antibody varicella-zoster VARICELLA-ZOSTER ANTBODY (77581) [facility] Work Phone: Start: 09-06-2011 Antibody rubeola RUBEOLA ANTIBODY (61233) [facility] Work Phone: Start: 09-06-2011 Antibody rubella RUBELLA ANTIBODY (87126) [facility] Work Phone: Start: 09-06-2011 Antibody mumps MUMPS ANTIBODY (12434) [facility] Work Phone: Start: 08-04-2011 Microsomal antibodies each Anti-TPO Antibody (29232) [facility] Work Phone: Start: 08-04-2011 Assay of thyroid stimulating hormone tsh TSH (39959) [facility]; [facility] Work Phone: Start: 08-04-2011 Thyrotropin Qn TSH (72202) [facility] Work Phone: Start: 07-30-2011 Patient Education Hypothyroidism: Brief Version *: hypothyroidism [facility]; [facility] Work Phone: Start: 07-30-2011 Provider Instructions for Treatment Reviewed Lab [facility]; [facility] Work Phone: Start: 06-15-2011 Assay of thyroid stimulating hormone tsh TSH ([id number]) [facility]; [facility] Work Phone: Start: 06-15-2011 Thyrotropin Qn TSH ([id number]) [facility] Work Phone: Start: 02-20-2008 Provider Instructions for Treatment [facility]; [facility] Work Phone: Start: 2006 PAP TESTING PAP TESTING [facility] Start: 2006 Screening for malignant neoplasm of cervix Cervical Cancer Screening [facility] Start: 06-04-2006 Glucose mass conc Glucose (62789) [facility] Work Phone: Start: 06-04-2006 Glucose quantitative blood xcpt reagent strip Glucose ([id number]) [facility]; [facility] Work Phone: Start: 06-04-2006 Lipid panel Lipid Panel ([id number]) [facility] Work Phone: Start: 03-11-2006 Provider Instructions for Treatment URI Symptoms [facility]; [facility] Work Phone: Start: 2004 Hepatitis B Vaccine (1 of 3 - 19+ 3-dose series) Hepatitis B Vaccine (1 of 3 - 19+ 3-dose series) [facility] Start: 2004 Urine microalbumin profile DTAP,TDAP,TD (1 - Tdap) [facility] Start: 09-29-2003 Anxiety Screening Anxiety Screening [facility] Start: 09-29-2003 Depression Screening Depression Screening [facility] Start: 09-29-2003 HEPATITIS C SCREENING HEPATITIS C SCREENING [facility] Start: 09-29-2003 Hepatitis C screening Hepatitis C Screening [facility] Start: 09-29-2003 HIV SCREENING HIV SCREENING [facility] Start: 09-29-2003 HIV screening HIV Screening [facility] Start: 1985 HEPATITIS B (1 of 3 - 3-dose series) HEPATITIS B (1 of 3 - 3-dose series) [facility] Path report.final Dx Spec [facility] T4 free measurement [facility] Thyroid stimulating hormone measurement [facility] Work Phone: [facility] Work Phone: [facility] Work Phone: [facility] Work Phone: [facility] Work Phone: [facility] Work Phone: Hypothyroidism : Hypothyroidism: Brief Version *: hypothyroidism [facility] Work Phone: Non-smoker : Eprescribed prescriptions ([id number]) [facility] Work Phone: [facility]; [facility] Work Phone: [facility] Payers Date Payer Category Payer Self-pay [id number] 2018 Private Health Insurance [employer] PPO [id number] 2018 Unknown 2018 Unknown [id number] Unknown [id number] Unknown [id number] Unknown [id number] Unknown [id number] Unknown [id number] Unknown [id number] Unknown [id number] Social History Date Type Detail Facility Start: 03-09-2022 End: 12-31-2023 Caffeine Use Never smoker [facility] Work Phone: 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 [facility] Work Phone: Tobacco use: Tobacco use: [facility]; [facility] Work Phone: Start: 05-12-2021 End: 07-27-2022 Tobacco smoking status NHIS Unknown if ever smoked [facility] Start: 1985 Sex Assigned At Female [facility] Start: 01-17-2022 End: 06-13-2024 Alcohol intake Current non-drinker of alcohol (finding) [facility] Start: 1985 Sex Assigned At Not on file [facility] Start: 03-09-2022 End: 12-31-2023 Tobacco use panel [facility] National Score (1-100), lower number is lower risk 48 [facility] Start: 07-27-2022 [facility] Start: 04-29-2024 Sex Female (finding) [facility] Clinical Notes 01-17-2022 to 06-14-2024 Telephone Encounter - Nenita Little LPN - 06/14/2024 12:04 PM EDTTelephone Encounter - Nenita Little LPN - 06/14/2024 12:04 PM EDTMThien Quesada MD - 06/13/2024 9:45 AM EDT Note Date & Type Note Facility 06-14-2024 Telephone encounter Note Pt is active on her MyChart (06/14/24), This nurse sent message with results from provider. Nenita Little LPN [facility] 06-14-2024 Miscellaneous Notes Pt is active on her MyChart (06/14/24), This nurse sent message with results from provider. Nenita Little LPN Please let patient know her swab for shingles was negative. She can stop the antiviral medication documented in this encounter [facility] 06-14-2024 Telephone encounter Note Please let patient know her swab for shingles was negative. She can stop the antiviral medication [facility] 06-13-2024 Note HNO ID: [id number] Author: THIEN VIDAL MD Service: ? Author Type: Physician Type: Progress Notes Filed: 06/13/2024 09:55 Note Text: [facility] Subjective Rosy Saul is a 38 year old female. Patient presents with: Rash: Tingling, nerve pain, itching and warmth on the right breast, hx of shingles, no open sores, hives Rash: Location: right lateral breast Duration: irritation for a few days, rash for 1 day Pruritis: Yes Pain: burning, tingling Bleeding/ulceration/blister/pus tule: defined red T'shaped area Contacts with rash: No Exposure: No new soaps, detergents, fabric softeners, lotions. Recent illness: No. Treatment: none. Previously diagnosed with shingles on her neck and this feels similar. Rash Review of Systems Skin: Positive for rash. Objective BP 108/72 (BP Site: Left Arm, BP Position: Sitting) Pulse 72 Temp 36.3 ?C (97.3 ?F) Resp 16 Wt 108.2 kg (238 lb 8.6 oz) LMP 01/14/2012 SpO2 98% Physical Exam Constitutional: General: She is not in acute distress. Chest: Comments: 6cm x 3cm slanted T-shaped faint erythema without induration, ulceration, or vesicles on the lateral upper right breast. Neurological: Mental Status: She is alert. {ASSESSMENT/PLAN: 1. Rash - ICD9: 782.1, ICD10: R21 Not typical appearance of shingles at this stage, but it is unilateral and has paresthesia. Start - VALACYCLOVIR 1 GRAM TABLET which is more effective early in zoster; it can be discontinued if PCR swab is negative and no typical vesicular raised lesions develop. - HERPES SIMPLEX VIRUS (HSV-1 AND HSV-2) AND VARICELLA ZOSTER VIRUS (VZV), NAAT, LESION SWAB Shingles discussed. Shingles is a viral rash from prior chicken pox infection. Early antiviral medicine can reduce the length and severity of the shingles outbreak. The rash is contagious until all blisters or sores are dry. Until this avoid contact with unvaccinated (usually children under 1), or people with impaired immune systems who would be susceptible to jamie the chicken pox. The site of the rash may have scaring (color change) after the infection is resolved. Recurrent shingles rash is uncommon. The area is uncomfortable but of uncertain cause (not typical appearance of contact dermatitis, cellulitis, mastitis, or zoster). She will follow up with her PCP next week if the lesion worsens or persists. Thien Vidal MD Differential Diagnoses - rash Procedures [facility] 06-13-2024 History of Presen t illness Narrative Images from the original note were not included. [facility] Subjective Rosy Saul is a 38 year old female. Patient presents with: Rash: Tingling, nerve pain, itching and warmth on the right breast, hx of shingles, no open sores, hives Rash: Location: right lateral breast Duration: irritation for a few days, rash for 1 day Pruritis: Yes Pain: burning, tingling Bleeding/ulceration/blister/pus tule: defined red T'shaped area Contacts with rash: No Exposure: No new soaps, detergents, fabric softeners, lotions. Recent illness: No. Treatment: none. Previously diagnosed with shingles on her neck and this feels similar. Rash Review of Systems Skin: Positive for rash. Objective BP 108/72 (BP Site: Left Arm, BP Position: Sitting) Pulse 72 Temp 36.3 C (97.3 F) Resp 16 Wt 108.2 kg (238 lb 8.6 oz) LMP 01/14/2012 SpO2 98% Physical Exam Constitutional: General: She is not in acute distress. Chest: Comments: 6cm x 3cm slanted T-shaped faint erythema without induration, ulceration, or vesicles on the lateral upper right breast. Neurological: Mental Status: She is alert. {ASSESSMENT/PLAN: 1. Rash - ICD9: 782.1, ICD10: R21 Not typical appearance of shingles at this stage, but it is unilateral and has paresthesia. Start - VALACYCLOVIR 1 GRAM TABLET which is more effective early in zoster; it can be discontinued if PCR swab is negative and no typical vesicular raised lesions develop. - HERPES SIMPLEX VIRUS (HSV-1 & HSV-2) AND VARICELLA ZOSTER VIRUS (VZV), NAAT, LESION SWAB Shingles discussed. Shingles is a viral rash from prior chicken pox infection. Early antiviral medicine can reduce the length and severity of the shingles outbreak. The rash is contagious until all blisters or sores are dry. Until this avoid contact with unvaccinated (usually children under 1), or people with impaired immune systems who would be susceptible to jamie the chicken pox. The site of the rash may have scaring (color change) after the infection is resolved. Recurrent shingles rash is uncommon. The area is uncomfortable but of uncertain cause (not typical appearance of contact dermatitis, cellulitis, mastitis, or zoster). She will follow up with her PCP next week if the lesion worsens or persists. Thien Vidal MD Differential Diagnoses - rash Procedures documented in this encounter [facility] 03-05-2024 Note HNO ID: [id number] Author: THIEN VIDAL MD Service: ? Author Type: Physician Type: Progress Notes Filed: 03/05/2024 19:03 Note Text: Patient presents with: Cough: Nasal congestion, fever, PIERRE x 2 days HPI: Feeling sick starting 2 days ago. Positive symptoms: Cough, Nasal Congestion, Fever, Headache, some Sore throat from coughing, Sinus pressure, Negative symptoms: Shortness of breath, Wheezing, Nausea, Vomiting, Diarrhea, Body Aches, OTC: Robitussin, left over tessalon, albuterol Her family members have had a viral illnesses recently also. MEDICATIONS: Current Outpatient Medications Medication Sig semaglutide (OZEMPIC SUBCUTANEOUS) Inject subcutaneously. levothyroxine (SYNTHROID) 125 mcg tablet Take 125 mcg by mouth once daily. escitalopram oxalate (LEXAPRO) 20 mg tablet Take 20 mg by mouth once daily. Cholecalciferol, Vitamin D3, 50 mcg (2,000 unit) cap Take by mouth. Benzonatate 200 mg capsule Take 1 capsule by mouth three times a day as needed. (Patient not taking: Reported on 03/05/2024) albuterol 2.5 mg /3 mL (0.083 %) [...] No current facility-administered medications for this visit. ALLERGIES: ALLERGIES No Known Allergies VITALS: BP 110/68 Pulse 105 Temp 36.8 ?C (98.3 ?F) Resp 21 Wt 113.1 kg (249 lb 5.4 oz) LMP 01/14/2012 SpO2 99% PHYSICAL EXAM: GEN: mildly ill appearing HEENT: PERRL, EOMI, conjunctiva clear Ears: canals clear. TMs without erythema, bulge, or effusion Sinuses: non-tender frontal sinus, non-tender maxillary sinuses Throat: moist mucous membranes, mild erythema, no exudate Neck: supple, no thyromegaly, no lymphadenopathy HEART: regular rate, regular rhythm, no murmurs LUNGS: clear to auscultation, no wheezes or crackles, no increased WOB; harsh coughing ASSESSMENT/PLAN: 1. Acute cough - ICD9: 786.2, ICD10: R05.1 - suspect viral URI - Discussed supportive care treatment with rest, cold medicine, and analgesia. Declines significant breathing problems to warrant steroid and finds side effects unpleasant. Requests refill of - BENZONATATE 100 MG CAPSULE Thien Vidal MD [facility] 03-05-2024 History of Presen t illness Narrative Patient presents with: Cough: Nasal congestion, fever, PIERRE x 2 days HPI: Feeling sick starting 2 days ago. Positive symptoms: Cough, Nasal Congestion, Fever, Headache, some Sore throat from coughing, Sinus pressure, Negative symptoms: Shortness of breath, Wheezing, Nausea, Vomiting, Diarrhea, Body Aches, OTC: Robitussin, left over tessalon, albuterol Her family members have had a viral illnesses recently also. MEDICATIONS: Current Outpatient Medications Medication Sig semaglutide (OZEMPIC SUBCUTANEOUS) Inject subcutaneously. levothyroxine (SYNTHROID) 125 mcg tablet Take 125 mcg by mouth once daily. escitalopram oxalate (LEXAPRO) 20 mg tablet Take 20 mg by mouth once daily. Cholecalciferol, Vitamin D3, 50 mcg (2,000 unit) cap Take by mouth. Benzonatate 200 mg capsule Take 1 capsule by mouth three times a day as needed. (Patient not taking: Reported on 03/05/2024) albuterol 2.5 mg /3 mL (0.083 %) [...] No current facility-administered medications for this visit. ALLERGIES: ALLERGIES No Known Allergies VITALS: BP 110/68 Pulse 105 Temp 36.8 C (98.3 F) Resp 21 Wt 113.1 kg (249 lb 5.4 oz) [facility] 01/14/2012 SpO2 99% PHYSICAL EXAM: GEN: mildly ill appearing HEENT: PERRL, EOMI, conjunctiva clear Ears: canals clear. TMs without erythema, bulge, or effusion Sinuses: non-tender frontal sinus, non-tender maxillary sinuses Throat: moist mucous membranes, mild erythema, no exudate Neck: supple, no thyromegaly, no lymphadenopathy HEART: regular rate, regular rhythm, no murmurs LUNGS: clear to auscultation, no wheezes or crackles, no increased WOB; harsh coughing ASSESSMENT/PLAN: 1. Acute cough - ICD9: 786.2, ICD10: R05.1 - suspect viral URI - Discussed supportive care treatment with rest, cold medicine, and analgesia. Declines significant breathing problems to warrant steroid and finds side effects unpleasant. 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 Author Type: Physician Medicine Assistant Type: Progress Notes Filed: 12/31/2023 17:54 Note Text: This note was created using [employer]. Subjective Rosy Saul is a 38 year old female. HPI 38-year-old female presents for cough, chest congestion x 1 week. Patient states she has had a cough for the past week. She states sometimes it is productive, sometimes it is dry. She has not really had nasal congestion. No fevers. No chest pain or shortness of breath. She does have history of allergy induced asthma in the past, but does not use inhalers regularly. She has been taking [id number] Mucinex and a few Tessalon Perles she had leftover. She states Tessalon Perles helped her, but Mucinex has not really helped that much. 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 PAST MEDICAL HISTORY Diagnosis Date Asthma Allergy induced asthma in the past. PAST SURGICAL HISTORY Procedure Laterality Date TONSILLECTOMY AND ADENOIDECTOMY ALLERGIES Patient has no known allergies. MEDICATIONS levothyroxine (SYNTHROID) 125 mcg tablet Take 125 mcg by mouth once daily. escitalopram oxalate (LEXAPRO) 20 mg tablet Take 20 mg by mouth once daily. Cholecalciferol, Vitamin D3, 50 mcg (2,000 unit) cap Take by mouth. semaglutide (OZEMPIC SUBCUTANEOUS) Inject subcutaneously. predniSONE (DELTASONE) 20 mg tablet Take 2 tablets by mouth once daily for 4 days. Take daily with food. Benzonatate 200 mg capsule Take 1 capsule by mouth three times a day as needed. doxycycline (VIBRA-TABS) 100 mg tablet Take 1 tablet by mouth two times a day for 7 days. albuterol 2.5 mg /3 mL (0.083 %) [...] as needed for Wheezing/Shortness of Breath (cough). FAMILY HISTORY Problem Relation Age of Onset Diabetes Paternal Grandfather other (Heart disease [Other]) Unknown Paternal family history Social History Tobacco Use Smoking status: Never Substance Use Topics Alcohol use: No Drug use: No Review of Systems Constitutional: Negative for chills and fever. HENT: Negative for congestion, ear pain and sore throat. Respiratory: Positive for cough. Negative for shortness of breath. Cardiovascular: Negative for chest pain. Gastrointestinal: Negative for diarrhea and vomiting. Objective BP 120/84 Pulse 90 Temp 36.8 ?C (98.2 ?F) Resp 18 Wt 116 kg (255 lb 11.7 oz) LMP 01/14/2012 SpO2 99% Physical Exam Vitals and nursing note reviewed. Constitutional: General: She is not in acute distress. Appearance: Normal appearance. She is not toxic-appearing. HENT: Right Ear: Tympanic membrane and ear canal normal. Left Ear: Tympanic membrane and ear canal normal. Nose: Nose normal. Mouth/Throat: Mouth: Mucous membranes are moist. Eyes: Conjunctiva/sclera: Conjunctivae normal. Cardiovascular: Rate and Rhythm: Normal rate and regular rhythm. Pulmonary: Effort: Pulmonary effort is normal. Breath sounds: Normal breath sounds. No wheezing, rhonchi or rales. Skin: General: Skin is warm and dry. Neurological: Mental Status: She is alert. Assessment and Plan ASSESSMENT/PLAN: 1. Bronchitis - ICD9: 490, ICD10: J40 -Suspect bronchitis. Rx Tessalon Perles, Rx prednisone. -Did discuss getting CXR today although lungs sound clear at this time. Patient declined, prefers to see if treatment above helps. -Did send in safety net antibiotic. If symptoms do not improve in the next 1 to 2 days, may start doxycycline. Patient agreeable. -She will follow-up if symptoms persist despite treatments. Diagnosis and treatment plan were discussed and questions were answered to the patient's satisfaction. Pt acknowledged understanding of concepts and follow up plan. Specific signs and symptoms that would indicate the need for higher level of care were discussed in detail warranting prompt ER evaluation. Alix Sanchez [facility]11-19-2024 History of Present illness Narrative* Alix Sanchez, PA - 12/31/2023 5:51 PM EST This note was created using [employer]. Subjective Rosy Saul is a 38 year old female. HPI 38-year-old female presents for cough, chest congestion x 1 week. Patient states she has had a cough for the past week. She states sometimes it is productive, sometimes it is dry. She has not really had nasal congestion. No fevers. No chest pain or shortness of breath. She does have history of allergy induced asthma in the past, but does not use inhalers regularly. She has been taking [id number] Mucinex and a few Tessalon Perles she had leftover. She states Tessalon Perles helped her,but Mucinex has not really helped that much. 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 PAST MEDICAL HISTORY Diagnosis Date Asthma Allergy induced asthma in the past. PAST SURGICAL HISTORY Procedure Laterality Date TONSILLECTOMY & ADENOIDECTOMY <AGE 12 ALLERGIES Patient has no known allergies. MEDICATIONS levothyroxine (SYNTHROID) 125 mcg tablet Take 125 mcg by mouth once daily. escitalopram oxalate (LEXAPRO) 20 mg tablet Take 20 mg by mouth once daily. Cholecalciferol, Vitamin D3, 50 mcg (2,000 unit) cap Take by mouth. semaglutide (OZEMPIC SUBCUTANEOUS) Inject subcutaneously. predniSONE (DELTASONE) 20 mg tablet Take 2 tablets by mouth once daily for 4 days. Take daily with food. Benzonatate 200 mg capsule Take 1 capsule by mouth three times a day as needed. doxycycline (VIBRA-TABS) 100 mg tablet Take 1 tablet by mouth two times a day for 7 days. albuterol 2.5 mg /3 mL (0.083 %) [...] as needed for Wheezing/Shortness of Breath (cough). FAMILY HISTORY Problem Relation Age of Onset Diabetes Paternal Grandfather other (Heart disease [Other]) Unknown Paternal family history Social History Tobacco Use Smoking status: Never Substance Use Topics Alcohol use: No Drug use: No Review of Systems Constitutional: Negative for chills and fever. HENT: Negative for congestion, ear pain and sore throat. Respiratory: Positive for cough. Negative for shortness of breath. Cardiovascular: Negative for chest pain. Gastrointestinal: Negative for diarrhea and vomiting. Objective BP 120/84 Pulse 90 Temp 36.8 C (98.2 F) Resp 18 Wt 116 kg (255 lb 11.7 oz) LMP 01/14/2012 SpO2 99% Physical Exam Vitals and nursing note reviewed. Constitutional: General: She is not in acute distress. Appearance: Normal appearance. She is not toxic-appearing. HENT: Right Ear: Tympanic membrane and ear canal normal. Left Ear: Tympanic membrane and ear canal normal. Nose: Nose normal. Mouth/Throat: Mouth: Mucous membranes are moist. Eyes: Conjunctiva/sclera: Conjunctivae normal. Cardiovascular: Rate and Rhythm: Normal rate and regular rhythm. Pulmonary: Effort: Pulmonary effort is normal. Breath sounds: Normal breath sounds. No wheezing, rhonchi or rales. Skin: General: Skin is warm and dry. Neurological: Mental Status: She is alert. Assessment and Plan ASSESSMENT/PLAN: 1. Bronchitis - ICD9: 490, ICD10: J40 -Suspect bronchitis. Rx Tessalon Perles, Rx prednisone. -Did discuss getting CXR today although lungs sound clear at this time. Patient declined, prefers to see if treatment above helps. -Did send in safety net antibiotic. If symptoms do not improve in the next 1 to 2 days, may start doxycycline. Patient agreeable. -She will follow-up if symptoms persist despite treatments. Diagnosis and treatment plan were discussed and questions were answered to the patient's satisfaction. Pt acknowledged understanding of concepts and follow up plan. Specific signs and symptoms that would indicate the need for higher level of care were discussed in detail warranting prompt ER evaluation. AXEL Tenorio [facility] History of Present illness Narrative* Elizabeth Del Castillo APRN.[facility] - 01/17/2022 2:01 PM EST Rosy Saul is a 36 year old female who presents for problem visit breast complaint. HPI: Presents today as a new patient with left breast complaint. Left breast started itching 3 weeks ago and in the last week started having tingling and discomfort. Pain is on bottom left outer leftbreast. No redness, skin changes or dimpling. No new medications or diagnoses. LMP 01/13, cycles areregular. Due for annual exam. 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 Patient agreeable to plan. 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 Anxiety and depression acute Vitamin deficiency acute [facility] Work Phone: evaluation note* Diagnosis Breast pain, left- Primary Mastodynia [facility] Diagnosis Onset Date Resolution Status Encounter for routine gynecological examination noneactive 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 [facility] Work Phone: evaluation noteNo assessment information available [facility] Work Phone: evaluation note* Diagnosis Bronchitis- Primary Bronchitis, not specified as acute or chronic [facility] Diagnosis Acute cough- Primary documented in this encounter [facility] note* Diagnosis Rash- Primary Rash and other nonspecific skin eruption documented in this encounter [facility]* Name Dates Details Patient Instructions Indication:Non-smoker Start:13-Jan-2021 Instruction Type:Provider Instructions for Treatment How to Access Health Informa tion Online using Patient Portal and View Medical Apps Indication:Non-smoker Start:13-Jan-2021 Instruction Type:Patient Education How to access health informa tion online Indication:BMI 40.0-44.9, adult Start:11-Mar-2019 Instruction Type:Patient Education How to access health informa tion online - Detail Indication:BMI 40.0-44.9, adult Start:11-Mar-2019 Instruction Type:Patient Education Patient Instructions Indication:BMI 40.0-44.9, adult Start:11-Mar-2019 Instruction Type:Provider Instructions for Treatment How to access health informa tion online Indication:Non-smoker Start:17-Jan-2018 Instruction Type:Patient Education How to access health informa tion online - Detail Indication:Non-smoker Start:17-Jan-2018 Instruction Type:Patient Education Patient Instructions Indication:Non-smoker Start:17-Jan-2018 Instruction Type:Provider Instructions for Treatment How to access health informa tion online Indication:Non-smoker Start:15-Nov-2017 Instruction Type:Patient Education How to access health informa tion online - Detail Indication:Non-smoker Start:15-Nov-2017 Instruction Type:Patient Education Patient Instructions Indication:Non-smoker Start:15-Nov-2017 Instruction Type:Provider Instructions for Treatment How to access health informa tion online Indication:Non-smoker Start:30-Aug-2017 Instruction Type:Patient Education How to access health informa tion online - Detail Indication:Non-smoker Start:30-Aug-2017 Instruction Type:Patient Education Patient Instructions Indication:Non-smoker Start:30-Aug-2017 Instruction Type:Provider Instructions for Treatment How to access health informa tion online Indication:Juan's thyroiditis Start:10-Aug-2016 Instruction Type:Patient Education How to access health informa tion online - Detail Indication:Juan's thyroiditis Start:10-Aug-2016 Instruction Type:Patient Education Patient Instructions Indication:Juan's thyroiditis Start:10-Aug-2016 Instruction Type:Provider Instructions for Treatment [facility]; [facility] Work Phone: reason for referral (narrative)No reason for referral information available[facility] Phone: Family History No Family History Records FoundUnknown Family Member Name Dates Details Father Comments:HTN Status:Active Maternal Grandfather Comments:pros cancer Status:Active Mother Comments:fibromyalgia Status:Active Unknown Family Member Name Dates Details Father Comments:HTN Status:Active Maternal Grandfather Comments:pros cancer Status:Active Mother Comments:fibromyalgia Status:Active Unknown Family Member Name Dates Details Father Comments:HTN Status:Active Maternal Grandfather Comments:pros cancer Status:Active Mother Comments:fibromyalgia Status:Active Relationship Condition Age at Onset Recorded Date/T ellie grandfather Diabetes mellitus Unknown Instructions Name Dates Details Non-smoker : How to access h ealth information online Indication:Non-smoker Non-smoker : How to access h ealth information online - Detail Indication:Non-smoker Non-smoker : Patient Instruc tions Indication:Non-smoker Juan's thyroiditis : Ho w to access health information online Indication:Juan's thyroiditis Juan's thyroiditis : Christiano jamison to access health information online - Detail Indication:Juan's thyroiditis Juan's thyroiditis : Axel serra Instructions Indication:Juan's thyroiditis Name Dates Details Non-smoker : How to access h ealth information online Indication:Non-smoker Non-smoker : How to access h ealth information online - Detail Indication:Non-smoker Non-smoker : Patient Instruc tions Indication:Non-smoker Juan's thyroiditis : Christiano jamison to access health information online Indication:Juan's thyroiditis Juan's thyroiditis : Christiano jamison to access health information online - Detail Indication:Juan's thyroiditis Juan's thyroiditis : Axel serra Instructions Indication:Juan's thyroiditis Chief Complaint and Reason for Visit Chief Complaint E ORDER FLUE BLOWER-EST CARE-CONSENT ONLY-[facility] PT check up Reason for Visit Preventative health care Sleep concern 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 Anxiety and depression Vitamin deficiency Chief Complaint PAP 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 Reason for Visit Encounter for routin e gynecological examination 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 Chief Complaint E-ORDER Chief Complaint Admit Date 6 M FU February 07, 2024 3:33pm INT LAB ORDERS April 15, 2024 4:28 pm Reason for Visit Admit Date Hypothyroidism due to Juan's thyroi ditis February 07, 2024 3:33pm Advance Directives No Advanced Directives Records Found Advance Directive Response Recorded Date/ Time Living Will No February 02 019 6:50am Power of Laundry Washer No February 02, 2019 6:50am Advance Directive Response Recorded Date/ Time Living Will No March 30, 2 020 1:29pm Power of Laundry Washer No March 30, 2019 1:29pm Advance Directive Response Recorded Date/ Time Living Will No March 30 020 2:29pm Power of Laundry Washer No March 30, 2019 2:29pm Summary Purpose Additional Source Comments Goals (unrecognized section and content) Goals may be documented in a n alternate sectionGoals may be documented in an alternate sectionGoals may be documented in an alternate sectionGoals may be documented in an alternate section Source Comments (unrecognize d section and content) In the event this informatio n is protected by the Federal Confidentiality of Alcohol and Drug Abuse Patient Records regulations: The Federal rules restrict any use of the information to criminally investigate or prosecute any alcohol or drug abuse patient.[facility] the event this information is protected by the Federal Confidentiality of Alcohol and Drug Abuse Patient Records regulations: The Federal rules restrict any use of the information to criminally investigate or prosecute any alcohol or drug abuse patient.[facility] the event this information is protected by the Federal Confidentiality of Alcohol and Drug Abuse Patient Records regulations: The Federal rules restrict any use of the information to criminally investigate or prosecute any alcohol or drug abuse patient.[facility] the event this information is protected by the Federal Confidentiality of Alcohol and Drug Abuse Patient Records regulations: The Federal rules restrict any use of the information to criminally investigate or prosecute any alcohol or drug abuse patient.[facility] the event this information is protected by the Federal Confidentiality of Alcohol and Drug Abuse Patient Records regulations: The Federal rules restrict any use of the information to criminally investigate or prosecute any alcohol or drug abuse patient.[facility] Reason for Visit (unrecogniz ed section and content) Reason Comments Breast pain Reason Comments Cough x 1 week, some chest congestion Reason Comments Cough Nasal congestion, fe susu, PIERRE x 2 days Reason Comments Rash Tingling, nerve pain , itching and warmth on the right breast, hx of shingles, no open sores, hives Care Teams (unrecognized sec tion and content) Community Specialist Relationship Specialty Start Date End Date Pcp, No PCP - General 08/26/21 03/13/22 Team Status: Active Member Role Status Dates Junior Bob NP, FLUE BLOWER-C Primary Care Provider Active Team Status: Inactive Member Role Status Dates Dr. Steven Villatoro MD Referring Provider Active Dr. Kit Trejo MD Attending Provider Active Junior Bob NP, FLUE BLOWER-C Primary Care Provider Active Team Status: Inactive Member Role Status Dates Dr. Steven Villatoro MD Referring Provider Active Dr. Maryse Berg DO Attending Provider Activ e Junior Bob NP, FLUE BLOWER-C Primary Care Provider Active Team Status: Inactive Member Role Status Dates Junior Bob NP, WHIT-C Primary Care Provide r, Attending Provider, Referring Provider Active Dr. Maryse Berg DO Other Provider Active Team Status: Inactive Member Role Status Dates Junior Bob NP, FLUE BLOWER-C Primary Care Provider Active JORGE Rinaldi Attending Provider, Referring Pr ovider Active Team Status: Active Member Role Status Dates JORGE Fiore Primary Care Provider Active Team Status: Inactive Member Role Status Dates Dr. Kit Trejo MD Attending Provider Active Sta rt: February 07, 2024 End: February 07, 2024 JORGE Fiore Primary Care Provider Active Start: February 07, 2024 End: February 07, 2024 JORGE Fiore Referring Provider Active St art: February 07, 2024 End: February 07, 2024 Team Status: Inactive Member Role Status Dates JORGE Fiore Primary Care Provider Active Start: April 15, 2024 End: April 15, 2024 Dr. Kit Trejo MD Attending Provider Active Sta rt: April 15, 2024 End: April 15, 2024 Dr. Kit Trejo MD Referring Provider Active Sta rt: April 15, 2024 End: April 15, 2024 INFORMATION SOURCE (unrecogn ized section and content) DATE CREATED AUTHOR 05/01/2024 [facility] DATE CREATED AUTHOR AUTHOR'S MARION GRAMAJO 06/18/2024 [facility] FOR RECORDS PERTAINING TO PATIENTS WHO ARE [...] BE BASED ON THE PRIMARY CLINICAL RECORDS. [employer] provides no warranty or guarantee of the accuracy or completeness of information in this document.
== END | disposition home or self-care (01) ==
LOC: LAB 12:06
PROVIDERS: PCP Nurse Practitioner Family; Referring Provider Nurse Practitioner Family; Visit Provider Nurse Practitioner Family
DX: E03.8 Other specified hypothyroidism (principal); E06.3 Autoimmune thyroiditis
CPT/HCPCS: 36415; 84439; 84443